=== PATIENT | male | born 1980 | race Caucasian/White ===

== ENCOUNTER 2023-01-22 12:49 | Outpatient (REF) | payer OTHER, SELFPAY ==
--- NOTE | ~2023-01-22 | US_ITS ---
EXAMINATION: US SCROTUM CLINICAL INFORMATION: Enlarged testicle.. COMPARISON: None available. TECHNIQUE: A sonogram of the scrotum was performed assessing balbuena-scale appearance and color Doppler flow. Spectral Doppler analysis of the arterial and venous flow were performed in the testes bilaterally. FINDINGS: RIGHT: Right testicle measures 6.4 x 2.9 x 4.0 cm, volume 38.5 mL. There is a central area of large heterogeneous mass and multiple small areas of satellite nodules with increased vascularity. The largest mass measures 3.5 x 2.8 x 3.3 cm and 1.6 x 1.3 x 1.5 cm. There is nonspecific echogenic calcification in the right testis. Spectral Doppler analysis of the arterial and venous flow is normal in the right testis except for increased vascularity in the several right testicular mass and smaller satellite nodules.. Right epididymal head is normal in size. No right hydrocele or varicocele is seen. Right epididymal Doppler flow is normal. LEFT: Left testicle measures 5.6 x 3.1 x 3.5 cm, volume 32.1 mL. No focal testicular parenchymal lesions are visualized. Spectral Doppler analysis of the arterial and venous flow is normal in the left testis. Left epididymal head is normal in size. No left hydrocele or varicocele is seen. Left epididymal Doppler flow is normal. US/US scrotum IMPRESSION: Abnormal ultrasound scrotum. 2 large masses and multiple small satellite nodules in the right testes with increased vascularity. These are suspicious for primary (lymphoma or leukemic deposits) or metastasis. The left testes and bilateral epididymides are normal
== END 2023-01-22 12:50 | disposition home or self-care (01) ==
LOC: HO.HMGCX 12:49
PROVIDERS: PCP Internal Medicine; Visit Provider Internal Medicine
DX: N50.89 Other specified disorders of the male genital organs (principal)
CPT/HCPCS: 76870

== ENCOUNTER 2023-01-29 12:14 | Outpatient (REF) | payer OTHER, SELFPAY ==
[2023-01-29 13:31] LABS: MANUAL DIFF FLAG NO
[2023-01-29 14:00] LABS: Appearance Urine Clear; Color Urine Yellow; Glucose Urine UA 100 mg/dL (Negative); Leukocyte Esterase Urine Negative (Negative); Nitrite Urine Negative (Negative); PH 5.5 (5.0-9.0); Specific Gravity - Urine >= 1.030 (1.005-1.025); Urine Blood Negative (Negative); Urine Ketones Trace mg/dL (Negative); Urine Protein Trace mg/dL (Neg-Trace)
[2023-01-29 14:00] LABS: Basophils Absolute Auto 0.1 X10*3/uL (0.0-0.2); Basophils Percent Auto 1.3 % (0-2); Eosinophils Absolute Auto 0.2 X10*3/uL (0.0-0.4); Eosinophils Percent Auto 3.4 % (0-4); Hematocrit 43.4 % (42.0-52.0); Hemoglobin 14.6 g/dl (14.0-18.0); Imm Gran Abs Auto 0.01 X10*3/uL (0.00-0.03); Imm Gran Pct Auto 0.2 % (0.0-0.4); Lymphocytes Absolute Auto 1.6 X10*3/uL (1.2-4.9); Mean Corpuscular HGB Conc 33.6 g/dl (31.0-36.0); Mean Corpuscular Hemoglobin 28.7 pg (27.0-33.0); Mean Corpuscular Volume 85.4 fL (80.0-98.0); Mean Platelet Volume 10.7 fL (9.4-12.4); Monocytes Absolute Auto 0.4 X10*3/uL (0.1-1.2); Monocytes Percent Auto 8.3 % (2-11); Neutrophils Percent Auto 55.8 % (45-73); Platelet Count 208 X10*3/uL (160-400); Red Blood Count 5.08 X10*6/uL (4.60-5.80); Red Cell Distribution Width 11.9 % (11.0-16.0); White Blood Count 5.3 X10*3/uL (4.8-10.8)
[2023-01-29 14:02] LABS: Bacteria Urine None Seen (None Seen); Hyaline Casts Urine 0-2 /LPF (0-2); Squamous Epithelial Cell Urine 0-2 /HPF (0-2); WBC Urine 0-5 /HPF (0-5)
[2023-01-29 14:18] LABS: Estimated Average Glucose 203 mg/dL; Hemoglobin A1c % 8.7 %
[2023-01-29 14:45] LABS: Microalbum/Creatinine Ratio Ur 5.7 ug/mg cr
[2023-01-29 14:53] LABS: Alanine Aminotransferase 52 U/L (0-40); Albumin Level 4.3 g/dL (3.5-5.0); Alkaline Phosphatase 75 U/L (39-117); Anion Gap 13 (12-20); Aspartate Amino Transferase 26 U/L (5-37); Bilirubin Total 0.5 mg/dL (0.0-1.0); Blood Urea Nitrogen 18 mg/dL (9-16); Calcium 9.8 mg/dL (8.4-10.2); Carbon Dioxide 27 mmol/L (22-29); Chloride 105 mmol/L (96-108); Cholesterol 194 mg/dL; Estimated Glomerular Filt Rate > 60; Glucose Fasting 228 mg/dL (60-99); HDL Cholesterol 44 mg/dL; LDL Cholesterol Calculated 130 mg/dl; Potassium 3.8 mmol/L (3.3-5.1); Sodium 141 mmol/L (135-145); Total Protein 7.7 g/dL (6.5-8.0); Triglycerides 101 mg/dL
[2023-01-29 15:09] LABS: TSH reflex Free T4 1.18 uIU/mL (0.32-4.0)
== END 2023-01-29 12:15 | disposition home or self-care (01) ==
LOC: HO.HMGCLDS 12:14
PROVIDERS: PCP Internal Medicine; Visit Provider Internal Medicine
DX: Z00.00 Encounter for general adult medical examination without abnormal findings (principal); E11.9 Type 2 diabetes mellitus without complications
CPT/HCPCS: 36415; 80053; 80061; 81001; 82043; 83036; 84443; 85025

== ENCOUNTER 2023-01-30 15:25 | Outpatient (AMB) | payer OTHER, SELFPAY ==
--- NOTE | 2023-01-30 13:02 | A.OFFVIS_ITS ---
Intake Intake Visit Reasons: disorders of the male genital organs Intake Note: NEW Patient presents today to established treatment for Disorder of the Male Genital Organ Meds- None Allergies to Antibiotic- None Blood Thinner- None Instrument Person Required: No Accompanied by: Self / Same As Patient Allergies No Known Allergies [No Known Allergies*] Allergy (Unverified 01/30/23 15:28) Medication List - Last Reconciled 01/30/23 by Caitlin Ramirez MD blood sugar diagnostic (OneTouch Ultra Test strips) tid [facility] blood-glucose meter (OneTouch Ultra2 Meter) As directed Farxiga (dapagliflozin propanediol) 10 mg PO DAILY NS meloxicam 15 mg PO DAILY HPI HPI Comments History of Present Illness Details Lalo is a 42-year-old male who presents to the clinic today for evaluation of testicular mass. 01/30/23-- He was last seen by his PCP, on 01/17/23 with complaints of swelling in the right testicle. He was recommended to obtain a testicular ultrasound at that time which he had on 01/22/23. He stated that he had noticed some discomfort with urination a few days ago with referred pressure on his right lower abdomen that has resolved. it was associated with him taking a drive with his and a bathroom was not readily available. He has a family history of skin cancer and diabetes. He denies any history of kidney stones. He denies noticing any signs of infection. He was recently started on Farxiga due to elevated blood glucose. Results reviewed-- 01/22/23- Scrotal ultrasound was reviewed-- It notes 2 large masses, multiple small satellite nodules in the right right testicle with increasing vascularity suspicious for a carcinoma. Evaluation today--UA?Blood: negative, leukocytes: negative. On exam, there is a mass in the lower pole of the right testicle. The left testicle is normal. Otherwise, abdomen soft, nontender. No CVA tenderness. Plan: Ordered a CAT scan of the abdomen and pelvis, chest x-ray, and blood work. Follow up with Dr. Phillip pending results. [facility] Medical History Annual physical exam Obesity Type 2 diabetes mellitus Surgical History No pertinent past surgical history Family History Father Stroke Diabetes Mother Diabetes Maternal Grandmother No problems noted. 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 Alcohol intake: current Alcohol intake frequency: holidays/special occasions only Patient Tobacco Use Status: Never used Tobacco Current occupational status: employed Cognitive needs: No Hearing needs: No Vision needs: No Review of Systems Const All systems reviewed & are unremarkable except as noted in HPI and below Reports no additional complaints Eyes Reports no additional complaints ENT Reports no additional complaints Card Denies dyspnea Resp Denies cough and Denies dyspnea GI Reports no additional complaints Musc Reports no additional complaints Skin/Breast Denies rash and Denies unusual bruising Neuro Reports no additional complaints Psych Reports no additional complaints Endo Reports no additional complaints Luis/Lymph Reports no additional complaints Aller/Immun Reports no additional complaints Physical Exam Const General: healthy appearing, no acute distress and well developed Orientation/consciousness: patient oriented x3 HEENT Head: Yes normocephalic and Yes atraumatic Eyes Conjunctivae: conjunctivae normal Neck Neck: Yes normal visual inspection Chest Chest palpation & inspection: normal inspection of the chest Resp Effort & Inspection: normal respiratory effort Cardio Rate: regular rate GI Inspection: Yes normal to inspection Palpation (GI): Soft to palpation Other: Right testicular mass lower pole. Penis: normal penis and uncircumcised Skin General skin exam: no rashes or lesions noted Neuro General: patient oriented x3 Extrem General: No pedal edema Psych Appearance: grossly normal Affect: normal affect Results AMB Urinalysis, Automated UA Leukoctes 0 Deangelo/uL Last Edit by SHARON Poole on 01/30/23 15:58 UA Nitrite Negative Last Edit by SHARON Poole on 01/30/23 15:58 UA Urobilinogen 0.2 mg/dL Last Edit by Desirae Shea Kathy on 01/30/23 15:5 8 UA Protein 15 mg/dL Last Edit by Desirae Shea Kathy on 01/30/23 15:58 UA pH 6.0 Last Edit by Desirae Shea [facility] on 01/30/23 15:58 UA Blood 0 Valdez/uL Last Edit by Desirae Shea A on 01/30/23 15:58 UA Specific [place] 1.30 Last Edit by Desirae Shea Kathy on 01/30/23 15:5 8 UA Ketone Last Edit by Desirae Shea Kathy on 01/30/23 15:58 UA Bilirubin 0 mg/dL Last Edit by Desirae Shea Kathy on 01/30/23 15:58 UA Glucose 0 mg/dL Last Edit by Desirae Shea Kathy on 01/30/23 15:58 Results Reviewed Results Reviewed: Laboratory Last Values Urine pH (Auto) 6.0 01/30/23 15:56 Specific Nelson (Auto) 1.30 01/30/23 15:56 Urine Protein (Auto) 15 mg/dL 01/30/23 15:56 Glucose (UA)(Auto) 0 mg/dL 01/30/23 15:56 Urine Blood (Auto) 0 Valdez/uL 01/30/23 15:56 Urine Nitrite (Auto) Negative 01/30/23 15:56 Urine Bilirubin (Auto) 0 mg/dL 01/30/23 15:56 Urine Urobilinogen (Auto) 0.2 mg/dL 01/30/23 15:56 Leukocyte Esterase (Auto) 0 Deangelo/uL 01/30/23 15:56 Date: 01/22/23 FINDINGS: RIGHT: Right testicle measures 6.4 x 2.9 x 4.0 cm, volume 38.5 mL. There is a central area of large heterogeneous mass and multiple small areas of satellite nodules with increased vascularity. The largest mass measures 3.5 x 2.8 x 3.3 cm and 1.6 x 1.3 x 1.5 cm. There is nonspecific echogenic calcification in the right testis.? Spectral Doppler analysis of the arterial and venous flow is normal in the right testis except for increased vascularity in the several right testicular mass and smaller satellite nodules.. Right epididymal head is normal in size. No right hydrocele or varicocele is seen. Right epididymal Doppler flow is normal. LEFT: Left testicle measures 5.6 x 3.1 x 3.5 cm, volume 32.1 mL. No focal testicular parenchymal lesions are visualized. Spectral Doppler analysis of the arterial and venous flow is normal in the left testis. Left epididymal head is normal in size. No left hydrocele or varicocele is seen. Left epididymal Doppler flow is normal. IMPRESSION: Abnormal ultrasound scrotum. ? 2 large masses and multiple small satellite nodules in the right testes with increased vascularity. These are suspicious for primary (lymphoma or leukemic deposits) or metastasis. ? The left testes and bilateral epididymides are normal Assessment & Plan Assessment & Plan (1) Mass of right testicle: Code(s): N50.89 - Other specified disorders of the male genital organs Plan Ordered a CAT scan of the abdomen and pelvis, chest x-ray, and blood work. Follow up with Dr. Phillip pending results. Orders: Orders Alpha Fetoprotein 01/30/23 N50.89 - Other specified disorders of the male genital organs HCG Tumor Marker 01/30/23 N50.89 - Other specified disorders of the male genital organs CT abdomen pelvis wo/w IV con 01/30/23 N50.89 - Other specified disorders of the male genital organs XR chest 2V 01/30/23 N50.89 - Other specified disorders of the male genital organs AMB Urinalysis Automated 01/30/23 Z13.9 - Encounter for screening, unspecified Patient Instructions: The patient had an opportunity to ask questions regarding treatment plan. All questions were answered. Imaging, Laboratory studies and physical exam results were discussed and reviewed in detail. No major barriers to understanding were identified. The patient expressed understanding and agreement with the above treatment plan. The patient is aware they should contact our office by phone for worsening of their current condition or the appearance of new symptoms. Compliance is e ncouraged with any medications and followup testing that is ordered. It is a privilege to be allowed the opportunity to participate in the urologic care of your patient. If you have any questions or concerns regarding treatment for the above conditions please do not hesitate to contact me. The office telephone contact is [phone]. This note is constructed in part using voice recognition software. While every effort has been made to ensure accuracy fine chemicals operator errors may have been included. Yours sincerely, Caitlin Ramirez MD Coding Level of Care Code New Pt Level 4 (57609) Diagnoses Mass of right testicle N50.89
== END 2023-01-30 16:07 | disposition home or self-care (01) ==
PROVIDERS: PCP Internal Medicine; Visit Provider Urology
DX: N50.89 Other specified disorders of the male genital organs (principal)
CPT/HCPCS: 99204

== ENCOUNTER → 2023-01-30 15:25 | Outpatient (BNVA) | payer OTHER, SELFPAY | PROVIDERS: PCP Internal Medicine; Visit Provider Urology ==

== ENCOUNTER 2023-02-16 10:19 | Outpatient (REF) | payer OTHER, SELFPAY ==
[2023-02-16 11:33] LABS: Blood Urea Nitrogen 13 mg/dL (9-16); Estimated Glomerular Filt Rate > 60
== END 2023-02-16 10:20 | disposition home or self-care (01) ==
LOC: HO.HMGCLDS 10:19
PROVIDERS: PCP Internal Medicine; Visit Provider Urology
DX: N50.89 Other specified disorders of the male genital organs (principal)
CPT/HCPCS: 36415; 82565; 84520

== ENCOUNTER 2023-03-14 09:06 | Outpatient (REF) | payer OTHER, SELFPAY ==
--- NOTE | ~2023-03-14 | CT_ITS ---
EXAMINATION: CT ABDOMEN AND PELVIS WITH CONTRAST CLINICAL INFORMATION: Right testicular mass. COMPARISON: None available. TECHNIQUE: Multidetector volumetric images were obtained from the superior aspect of the liver through the pubic symphysis following administration 85 mL of Omnipaque 350 intravenous contrast. Sagittal and coronal reformatted images were obtained on the technologist's workstation. Oral contrast: No This CT examination was performed using dose optimization techniques as appropriate, variously including the following: *Automated exposure control *Adjustment of mA and/or kV according to patient size (this includes techniques or standardized protocols for targeted exams where dose is matched to indication/reason for exam; i.e. extremities or head) *Use of iterative reconstruction technique DLP: A 49 mGy-cm FINDINGS: LUNG BASES: The visualized lung bases are unremarkable. LIVER, GALLBLADDER, AND BILIARY TREE: The liver is normal in size, shape and generally diminished in attenuation. No focal hepatic lesion or biliary ductal dilatation is present. The gallbladder is unremarkable with no evidence of radiopaque gallstones, gallbladder wall thickening, or obvious pericholecystic inflammatory changes. PANCREAS: Unremarkable. SPLEEN: Unremarkable. ADRENAL GLANDS: Unremarkable. KIDNEYS AND URETERS: The kidneys are normal in size, shape, and attenuation. No hydronephrosis, hydroureter, or calculi seen. No perinephric stranding. BLADDER: Unremarkable. GASTROINTESTINAL TRACT: The small and large bowel are unremarkable. The vermiform appendix is not identified with certainty; however, there is no finding to suggest appendicitis. ABDOMINAL WALL: No significant hernia is appreciated. LYMPH NODES: Normal. VASCULAR: Unremarkable. PELVIC VISCERA: The prostate and seminal vesicles are unremarkable. OSSEOUS STRUCTURES: There is multi-level mild lower thoracic and lumbar degenerative disc disease and spondylosis. No acute or aggressive osseous abnormality is seen. CT/CT abdomen pelvis w IV con IMPRESSION: There is hepatic steatosis. The examination is otherwise unremarkable. Fleischner guidelines were followed.
--- NOTE | ~2023-03-14 | XR_ITS ---
EXAMINATION: XR CHEST CLINICAL INFORMATION: Difficulty breathing COMPARISON: None available. TECHNIQUE: 2 views of the chest were obtained. FINDINGS: No significant abnormality is noted involving the heart, lungs, mediastinum, bony thorax or soft tissues. XR/XR chest 2V IMPRESSION: Unremarkable examination.
[2023-03-14] MEDS: iohexoL 350 MG/ML 100 ML INFUS..BTL 85 ML IV (09:41)
== END 2023-03-14 09:07 | disposition home or self-care (01) ==
LOC: HO.CT 09:06
PROVIDERS: Visit Provider Urology
DX: N50.89 Other specified disorders of the male genital organs (principal)
CPT/HCPCS: 71046; 74177; Q9967

== ENCOUNTER 2023-03-28 10:36 | Outpatient (AMB) | payer OTHER, SELFPAY ==
--- NOTE | 2023-03-28 10:42 | MHC.OFFVIS ---
Intake Intake Visit Reasons: 4W CT/LABS(No labs) Intake Note: Patient is present for Follow Up CT Urology Med: None Antibiotic Allergy: None Blood Thinner: None Pharmacy: [facility] Allergies No Known Allergies [No Known Allergies*] Allergy (Verified 03/28/23 10:43) HPI HPI Comments History of Present Illness Details Lalo is a pleasant male. He is a patient of Dr. Diamond. 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 The largest mass measures 3.5 x 2.8 x 3.3 cm and 1.6 x 1.[address] abdomen reported as normal Testicular markers were ordered however do not appear to have been completed Discussed results Recommend right radical orchiectomy Repeat tumor markers today [facility] Medical History Obesity Annual physical exam Type 2 diabetes mellitus Surgical History No pertinent past surgical history Family History Father Stroke Diabetes Mother Diabetes Maternal Grandmother No problems noted. 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 Alcohol intake: current Alcohol intake frequency: holidays/special occasions only Patient Tobacco Use Status: Never used Tobacco Current occupational status: employed Cognitive needs: No Hearing needs: No Vision needs: No Review of Systems Const Denies chills and Denies fever(s) Card Reports no additional complaints and Denies syncope Resp Denies cough GI Denies abdominal pain and Denies heartburn Reports as per HPI and Denies change in libido Neuro Denies syncope Psych Denies change in libido Endo Denies change in libido Physical Exam Const General: cooperative, healthy appearing, comfortable and no acute distress Orientation/consciousness: patient oriented x3 HEENT Face and sinus: Yes normal facial exam Mouth: moist mucous membranes Neck Neck: Yes normal visual inspection, Yes full ROM and Yes trachea midline Chest Chest palpation & inspection: normal inspection of the chest Resp Effort & Inspection: normal respiratory effort, able to speak in complete sentences and no respiratory distress GI Inspection: Yes normal to inspection Back/Spine/Pelvis Cervical Spine: normal cervical lordosis Thoracic/Lumbar Spine: thoracic and lumbar spine normal to inspection Skin General skin exam: no rashes or lesions noted Neuro General: patient oriented x3, gait normal, tone normal and moves all extremities Extrem General: Yes normal to inspection and Yes capillary refill normal Results AMB Urinalysis, Automated UA Leukoctes 0 Deangelo/uL Last Edit by Glo Bernstein [facility] on 03/28/23 10:51 UA Nitrite Negative Last Edit by Glo Bernstein, [facility] on 03/28/23 10:51 UA Urobilinogen 0.2 mg/dL Last Edit by Glo Bernstein, [facility] on 03/28/23 10:51 UA Protein 0 mg/dL Last Edit by Glo Bernstein, [facility] on 03/28/23 10:51 UA pH 5.0 Last Edit by Glo Bernstein, [facility] on 03/28/23 10:51 UA Blood 0 Valdez/uL Last Edit by Glo Bernstein, [facility] on 03/28/23 10:51 UA Specific [place] 1.025 Last Edit by Glo Bernstein, [facility] on 03/28/23 10:51 UA Ketone Negative Last Edit by Glo Bernstein, [facility] on 03/28/23 10:51 UA Bilirubin 0 mg/dL Last Edit by Glo Bernstein [facility] on 03/28/23 10:51 UA Glucose 0 mg/dL Last Edit by Glo Bernstein, [facility] on 03/28/23 10:51 Assessment & Plan Assessment & Plan (1) Mass of right testicle: Code(s): N50.89 - Other specified disorders of the male genital organs Plan Risks, benefits and alternatives to therapy were discussed. These include but are not limited to infection, bleeding, damage to local organs and tissues, need for further interventions. Anesthetic risks regarding cardiac arrhythmia, blood clots, and potential mortality were discussed. The patient understands the typical recovery time and the outpatient nature of the procedure. After consideration of these risks the patient gives full informed consent and they wish to move ahead with the procedure. Right radical orchiectomy Orders: Orders AMB Urinalysis Automated Today Z13.9 - Encounter for screening, unspecified HCG Tumor Marker Today C62.90 - Malignant neoplasm of unspecified testis, unspecified whether descended or undescended, N50.89 - Other specified disorders of the male genital organs Alpha Fetoprotein Today N50.89 - Other specified disorders of the male genital organs Lactate Dehydrogenase Today C62.90 - Malignant neoplasm of unspecified testis, unspecified whether descended or undescended, N50.89 - Other specified disorders of the male genital organs Patient Instructions: Imaging studies, laboratory and physical exam results were discussed and reviewed in detail. No major barriers to patient understanding were identified. An opportunity to ask questions regarding the treatment plan was provided. All questions were answered. The patient expressed understanding and agreement with the above treatment plan. The patient is aware they should contact our office by phone for worsening of their current condition or the appearance of new urologic symptoms. Compliance is encouraged with any medications and followup testing that is ordered. It is a privilege to participate in the urologic care of your patient. If you have any questions or concerns regarding treatment for the above conditions, or other urologic issues, please do not hesitate to contact me. The office telephone contact is [phone]. This note is constructed using voice recognition software. While every effort has been made to ensure accuracy charge accounts audit clerk errors may have been included. Yours sincerely, Dr Claude Phillip MD, [facility] - Urology Providers of Expert, Compassionate Care for the Genitourinary System Coding Level of Care Code Est Pt Level 4 (94151) Diagnoses Mass of right testicle N50.89
== END 2023-03-28 11:42 | disposition home or self-care (01) ==
PROVIDERS: PCP Internal Medicine; Visit Provider Urology
DX: N50.89 Other specified disorders of the male genital organs (principal)
CPT/HCPCS: 99214

== ENCOUNTER → 2023-03-28 10:36 | Outpatient (BNVA) | payer OTHER, SELFPAY | PROVIDERS: PCP Internal Medicine; Visit Provider Urology ==

== ENCOUNTER 2023-03-28 11:04 | Outpatient (REF) | payer OTHER, SELFPAY ==
[2023-03-28 13:50] LABS: Lactate Dehydrogenase 310 U/L (118-273)
[2023-03-30 00:33] LABS: HCG Tumor Marker <5 mIU/mL (<5)
[2023-04-01 13:04] LABS: Alpha Fetoprotein 2.7 ng/mL (<6.1)
== END 2023-03-28 11:05 | disposition home or self-care (01) ==
LOC: HO.10HDL 11:04
PROVIDERS: Visit Provider Urology
DX: N50.89 Other specified disorders of the male genital organs (principal); C62.90 Malignant neoplasm of unspecified testis, unspecified whether descended or undescended
CPT/HCPCS: 36415; 81003; 82105; 83615; 84702

== ENCOUNTER 2023-04-01 13:46 | Day surgery (SDC) | payer OTHER, SELFPAY ==
[2023-04-01] VITALS (7 sets, daily range): BP systolic 135–148; BP diastolic 69–89; PULSE 67–79; RESP 16–18; TEMP 36.8–37.2; O2SAT 97–100; BMI 31.4
--- NOTE | 2023-04-01 14:23 | P.CONAN_ITS ---
HPI - Anesthesia Eval Consult details Narrative: for right radical orchiectomy PMFSH Active Problems Active Problems: All Active Problems (Updated 01/25/23 @ 15:14 by Abiola Diamond MD) Mass of right testicle (Acute) Shoulder pain, left (Acute) Enlarged testicle (Acute) Type 2 diabetes mellitus (Acute) Obesity (Acute) Annual physical exam (Acute) Past Medical History Medical History Obesity Annual physical exam Type 2 diabetes mellitus Family History Family History Father Stroke Diabetes Mother Diabetes Maternal Grandmother No problems noted. 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 Alcohol intake: current Alcohol intake frequency: holidays/special occasions only Patient Tobacco Use Status: Never used Tobacco Use of substances other than those prescribed or required for medical reasons: No Are you DNR?: No Advance Directives: No Advance Directives Information Provided: Yes Current occupational status: employed Cognitive needs: No Hearing needs: No Vision needs: No Meds Allergies Allergy/AdvReac Type Severity Reaction Status Date / Time No Known Allergies Allergy Verified 03/28/23 10:43 [No Known Allergies*] Active Medications: Current Medications Cefazolin Sodium/Dextrose (Ancef) 2 gm in 50 mls @ 100 mls/hr IV PREOP ONE Stop: 04/01/23 14:33 Home Medications Medication Instructions Recorded Confirmed Last Taken Type fexofenadine 180 mg tablet 180 mg PO DAILY 04/01/23 04/01/23 Unknown History Exam Exam Date and Time: April 01, 2023 1423 Height,Weight and Vital Signs: Height 6 ft 3 in Weight 113.852 kg Last Vital Signs Temp 98.5 F 04/01/23 14:17 Pulse 78 04/01/23 14:17 Resp 18 04/01/23 14:17 BP 144/89 H 04/01/23 14:17 Pulse Ox 99 04/01/23 14:17 O2 Del Method Room Air 04/01/23 14:17 Airway Mallampati Class: I TM Dist: >3cm Neck ROM: Full Loose/Missing/Broken Teeth: No Heart: ok Lungs: ok Assessment and Plan Assessment Anesthesia Assessment: Anesthesia Plan Discussed and Chart Reviewed Final Anesthetic Review Family History of Problems with Anesthesia: No History of Problems with Anesthesia: No NPO: Yes ASA Class: II Final Preanesthetic Review: No Changes in Pt Med Stat, Meds/Allgs Chart Reviewed, Consent Obtained/Reviewed and Anes Risks/Benef Reviewed Patient Risk: Low Procedure Risk: Low Anesthetic Plan Anesthetic Plan: GA and Agree w/ Assess. and Plan Disposition: Standard PACU
[2023-04-01] MEDS: Lactated Ringers 1,000 ML 50 ML IVCONT (14:45)
[2023-04-01 14:56] LABS: Glucose, Whole Blood 118 mg/dL (60-115)
--- NOTE | 2023-04-01 15:36 | MHC.SHP ---
Pre-Procedural Eval Section A Date of Service: 04/01/23 The patient is an INPATIENT: No Changes since office visit: No Cold of Flu in the past 2 weeks, No New Medical Problems, No Changes in Medication and No Patient answered all questions The History & Physical has been completed within 30 days and I have reviewed it.: Yes Section B Chief Complaint: Other specified disorders of the male genital orga Allergies: Allergies Allergy/AdvReac Type Severity Reaction Status Date / Time No Known Allergies Allergy Verified 03/28/23 10:43 [No Known Allergies*] Plan Diagnosis/Plan: Unchanged ( right radical orchiectomy) I have reviewed the history and physical and performed a pertinent physical examination on my patient. No changes have occurred unless specified. Time Spent With Patient Time: Total time managing care of this patient today ____ minutes.
--- NOTE | 2023-04-01 17:05 | W.PM.OPN ---
Operative Note Operative Note Date of Service: 04/01/23 Narrative: PreOperative Diagnosis: Right testicle mass Post Operative Diagnosis: right testicle mass Procedure: right radical orchiectomy Surgeon: Dr Claude Phillip Anesthesia: general Indications for procedure: right testicular mass on imaging. Recommend radical orchiectomy. High percentage chance of testicular cancer Procedure: After informed consent was verified the patient was brought to the operating room and placed in a supine position. Anesthesia was administered per protocol. The patient was prepped and draped in a sterile fashion. Safety pause time-out was performed. Antibiotics being given. Palpation was performed through the right inguinal canal. The canal was palpated and an incision marked approximately 10 cm in length running 2 to 3 cm caudad to the inguinal canal. Local anesthetic was infiltrated. The incision was made with a 10 blade through the skin into the subcutaneous tissue. Subcutaneous tissue was dissected until the cord was identified and the surrounding fascia. A Alciia clamp was placed from the lateral superior pubis under the cord structures and the cord was isolated using a quarter-inch [place] drain. This was double wrapped to control vascular drainage from the testicular manipulation. The testicle itself was then delivered from the scrotum through the incision. The gubernacular attachments were divided using a LigaSure device to minimize postoperative bleeding. Once the testicle had been freed in fully elevated the empty scrotal sac was irrigated. The cord was traced in a proximal fashion and the overlying fascia was divided for approximately 1 in over the inguinal canal. Cord was fully elevated and the vas deferens was dissected free from the vascular pedicle. Clamps were placed on the vas deferens and separately through the vascular pedicle. The cord structures were then divided using the LigaSure device. The vascular pedicle was marked using a stick tie 3.0 Prolene. A long tail was left as the cord structures retracted into the retroperitoneal space. The vas deferens was tied with a 3-0 Vicryl. The overlying fascia was then reapproximated using a running 3-0 Prolene suture. The wound was then re-irrigated. Kamron's fascia was reapproximated with interrupted 3-0 Vicryl. Skin edge was reapproximated with 2 interrupted 3-0 Vicryl sutures. Skin was closed using a running 4-0 Monocryl suture. At completion of skin closure glue was used. A dressing was placed. He tolerated procedure well. Was extubated in the operating room and transferred in a stable condition to the recovery area. Pathology: Right testicle Drains: none
[2023-04-01] MEDS: oxyCODONE HCl Immed Release 5 MG TABLET 10 MG PO (17:11)
[2023-04-01] MEDS: Acetaminophen 325 MG TABLET 975 MG PO (17:12)
== END 2023-04-01 17:48 | disposition home or self-care (01) ==
PROVIDERS: PCP Internal Medicine; Visit Provider Urology
PROC: (CPT 54530; principal; 2023-04-01 15:40)
DX: C62.91 Malignant neoplasm of right testis, unspecified whether descended or undescended (principal); N50.89 Other specified disorders of the male genital organs; E11.9 Type 2 diabetes mellitus without complications; Z79.84 Long term (current) use of oral hypoglycemic drugs; Z79.899 Other long term (current) drug therapy
CPT/HCPCS: 54530; 82947; 88309; 88313; 88341; 88342; J0690; J1885; J2250; J2405; J2795; J3010

== ENCOUNTER → 2023-04-01 13:46 | Outpatient (BNV) | payer OTHER, SELFPAY | PROVIDERS: PCP Internal Medicine; Visit Provider Urology | DX: C62.11 Malignant neoplasm of descended right testis (principal) | CPT/HCPCS: 54530 ==

== ENCOUNTER 2023-04-09 13:38 | Outpatient (AMB) | payer OTHER, SELFPAY ==
--- NOTE | 2023-04-09 13:39 | MHC.OFFVIS ---
Intake Intake Visit Reasons: post op (radical orchiectomy) Intake Note: Patient is Present for Follow Up Post Op Urology Medication: None Antibiotic Allergies: None Blood Thinners: None Pharmacy: [facility] Allergies No Known Allergies [No Known Allergies*] Allergy (Verified 03/28/23 10:43) Medication List - Last Reconciled 04/09/23 by Claude Phillip MD blood sugar diagnostic (OneTouch Ultra Test strips) tid qAC blood-glucose meter (OneTouch Ultra2 Meter) As directed fexofenadine 180 mg PO DAILY lancets (OneTouch Delica Plus Lancet) Test blood sugar once a day metformin 850 mg PO BID tramadol 50 mg PO Q6H PRN HPI HPI Comments History of Present Illness Details Lalo is a pleasant male. He is a patient of Dr. Diamond. 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 He is seen for the following urologic conditions - right testicular seminoma Accompanied by Discussion of pathology results Recommend single cycle [place]-based chemotherapy Referral to medical oncology Two month follow-up Cleared for normal activity Right testicular seminoma Noted on self exam middle of January 2023 Ultrasound report states suspicious for carcinoma - acentral area of large heterogeneous mass and multiple small areas of satellite nodules with increased vascularity. The largest mass measures 3.5 x 2.8 x 3.3 cm and 1.6 x 1[address] abdomen reported as normal Testicular markers normal Pathology - T2 seminoma [facility] Medical History (Updated 04/09/23 @ 14:19 by Claude Phillip MD) Mass of right testicle Enlarged testicle Obesity Annual physical exam Type 2 diabetes mellitus Surgical History No pertinent past surgical history Family History Father Stroke Diabetes Mother Diabetes Maternal Grandmother No problems noted. 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 Housing: House Alcohol intake: current Alcohol intake frequency: holidays/special occasions only Patient Tobacco Use Status: Never used Tobacco Current occupational status: employed Cognitive needs: No Hearing needs: No Vision needs: No Review of Systems Const Denies chills and Denies fever(s) Card Reports no additional complaints and Denies syncope Resp Denies cough GI Denies abdominal pain and Denies heartburn Reports as per HPI and Denies change in libido Neuro Denies syncope Psych Denies change in libido Endo Denies change in libido Physical Exam Const General: cooperative, healthy appearing, comfortable and no acute distress Orientation/consciousness: patient oriented x3 HEENT Face and sinus: Yes normal facial exam Mouth: moist mucous membranes Neck Neck: Yes normal visual inspection, Yes full ROM and Yes trachea midline Chest Chest palpation & inspection: normal inspection of the chest Resp Effort & Inspection: normal respiratory effort, able to speak in complete sentences and no respiratory distress GI Inspection: Yes normal to inspection Back/Spine/Pelvis Cervical Spine: normal cervical lordosis Thoracic/Lumbar Spine: thoracic and lumbar spine normal to inspection Skin General skin exam: no rashes or lesions noted Neuro General: patient oriented x3, gait normal, tone normal and moves all extremities Extrem General: Yes normal to inspection and Yes capillary refill normal Assessment & Plan Assessment & Plan (1) 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, LVI positive Code(s): C62.11 - Malignant neoplasm of descended right testis Plan Two month follow-up Orders: Referrals Hematology & Oncology Referral C62.11 - Malignant neoplasm of descended right testis Patient Instructions: Imaging studies, laboratory and physical exam results were discussed and reviewed in detail. No major barriers to patient understanding were identified. An opportunity to ask questions regarding the treatment plan was provided. All questions were answered. The patient expressed understanding and agreement with the above treatment plan. The patient is aware they should contact our office by phone for worsening of their current condition or the appearance of new urologic symptoms. Compliance is encouraged with any medications and followup testing that is ordered. It is a privilege to participate in the urologic care of your patient. If you have any questions or concerns regarding treatment for the above conditions, or other urologic issues, please do not hesitate to contact me. The office telephone contact is [phone]. This note is constructed using voice recognition software. While every effort has been made to ensure accuracy flatwork feeder errors may have been included. Yours sincerely, Dr Claude Phillip MD, [facility] - Urology Providers of Expert, Compassionate Care for the Genitourinary System Coding Level of Care Code Est Pt Level 4 (75263) Diagnoses Seminoma of descended right testis C62.11
== END 2023-04-09 14:20 | disposition home or self-care (01) ==
PROVIDERS: PCP Internal Medicine; Visit Provider Urology
DX: C62.11 Malignant neoplasm of descended right testis (principal)
CPT/HCPCS: 99024

== ENCOUNTER → 2023-04-09 13:38 | Outpatient (BNVA) | payer OTHER, SELFPAY | PROVIDERS: PCP Internal Medicine; Visit Provider Urology ==

== ENCOUNTER 2023-04-23 08:19 | Outpatient (AMB) | payer OTHER, SELFPAY ==
--- NOTE | 2023-04-23 08:28 | A.OFFVIS_ITS ---
Intake VS Expanded 04/23/23 08:31 04/29/23 20:49 Height 6 ft 3 in 6 ft 3 in Weight 259 lb 4.218 oz 259 lb BMI 32.4 32.4 Intake Visit Reasons: DM2, appt confirmed Allergies No Known Allergies [No Known Allergies*] Allergy (Verified 03/28/23 10:43) HPI Nutrition Presentation Details Pt presents for MNT for T2DM . The Pt was referred by Dr. Ely Diamond Pt reports having tried several diets in the past: keto, anabolic diet. Pt reports feeling more comfortable in making dietary modifications for blood glucose improvement since acquiring a glucose sensor (freestyle warren) Pt reports taking on and off the following supplements chromium , alpha lipoic acid food frequency questionnaire Fish : 12 oz , 2-3 x/wk, fruits: 4-x wk (in smoothies ) beverages: water/juices> 66 oz/d dairy : 2+ daily (yogurt/cream/cheese) fruits: 0-3/d physical activity: -- ETOH/SMoking---- KOX-Siptfhp-Wb.Jeor Equation Height 6 ft 3 in Weight 259 lb Resting Metabolic Rate 2167.53 Calculated Activity Level Mild Activity Calories Needed to Maintain Weight 2980.35 Diagnosis Nutrition problem #1 food nutri know defi As related to (etiology) #1 diagnosis As evidenced by (sign/symptom) #1 knowledge deficit of diet Learning/Education Readiness to learn good Stages of change action Most Recent Diabetes Results: Creatinine 0.89 mg/dL (0.5-1.4) 02/16/23 Blood Urea Nitrogen 13 mg/dL (9-16) 02/16/23 [facility] Medical History (Updated 04/29/23 @ 21:20 by Candace Burton, RD, LDN) Mass of right testicle Enlarged testicle Obesity Annual physical exam Type 2 diabetes mellitus Surgical History No pertinent past surgical history Family History Father Stroke Diabetes Mother Diabetes Maternal Grandmother No problems noted. 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 Alcohol intake: current Alcohol intake frequency: holidays/special occasions only Patient Tobacco Use Status: Never used Tobacco Current occupational status: employed Cognitive needs: No Hearing needs: No Vision needs: No Assessment & Plan Assessment & Plan (1) Type 2 diabetes mellitus: Code(s): E11.9 - Type 2 diabetes mellitus without complications Plan: wt: 118 kg Est kcal needs as per MSJ: 3000 (40% carb, 30% protein/fat) Est fluid needs as per 25-30 ml/d: 2950 -3540 Est prot per day as per 1 g/kg bw: 118 Recommend fiber intake : 8-10 g per day and gradually increase to 25-28 g per day for women and 35-38 g for men or as tolerated Recommend sodium intake per day : less than 2000 mg Educated patient on: ( R = reviewed V = verbalizes understanding N/R = needs review N/A = not applicable * Food sources of carbohydrate, adequate serving sizes and its role in various health conditions: R * Differences between complex carbohydrates a simple carbohydrates, role of fiber in diet: R * Differences between types of fats and role in diet (mono on saturated fat fatty acids, saturated fatty acids, trans fats): R ,basic low fat * Food sources of sodium in salt and healthy modifications for heart health in kidney health: NR * Healthy plate method concept: R V * Physical activity: Benefits a precaution: R V * Hypoglycemia protocol (rule of 15): R * Dietary prevention of Hyperglycemia: R V Patient Instructions: Practice mindful eating Work at balancing your meals following healthy plate method. Reduce total carb at a meal to 100 g Coding Level of Care Code Nutr Indiv Intake (92806) Diagnoses Type 2 diabetes mellitus E11.9 Time Spent (min) 30
[2023-04-23 08:31] VITALS: BMI 32.4
[2023-04-29 20:49] VITALS: BMI 32.4
== END 2023-04-23 09:16 | disposition home or self-care (01) ==
PROVIDERS: PCP Internal Medicine; Visit Provider Dietitian, Registered
DX: E11.9 Type 2 diabetes mellitus without complications (principal)

== ENCOUNTER → 2023-04-23 08:19 | Outpatient (BNVA) | payer OTHER, SELFPAY | PROVIDERS: PCP Internal Medicine; Visit Provider Dietitian, Registered | DX: E11.9 Type 2 diabetes mellitus without complications (principal); Z71.3 Dietary counseling and surveillance | CPT/HCPCS: 97802 ==

== ENCOUNTER 2023-04-30 | Outpatient (REF) | payer OTHER, SELFPAY ==
--- NOTE | ~2023-04-30 | CT_ITS ---
EXAMINATION: CT CHEST WITH CONTRAST CLINICAL INFORMATION: Seminoma metastases. Rule out metastases. COMPARISON: None available. TECHNIQUE: Multidetector volumetric CT imaging of the chest was obtained after the administration of 50 mL of Omnipaque 350 intravenous contrast without immediate adverse reactions. Axial MIP volume rendering provided. Sagittal and coronal reformatted images were obtained. This CT examination was performed using dose optimization techniques as appropriate, variously including the following: *Automated exposure control *Adjustment of mA and/or kV according to patient size (this includes techniques or standardized protocols for targeted exams where dose is matched to indication/reason for exam; i.e. extremities or head) *Use of iterative reconstruction technique DLP: 224 mGy-cm FINDINGS: MANAGER UNION: Unremarkable LUNGS: The lungs are well-expanded and clear. No pulmonary nodules, masses or consolidation seen. No groundglass density. MEDIASTINUM: Thyroid lobes are symmetrical and normal. The central trachea and bronchi are widely patent. No abnormal size mediastinal or hilar lymph nodes seen. The heart size and great vessels are normal caliber. No pericardial effusion seen. PLEURA: There is no pleural effusion. No pleural mass or thickening. AXILLA: No lymphadenopathy. UPPER ABDOMEN: The liver is diffusely attenuated but normal size and contour. Visualized spleen is unremarkable. Bilateral adrenal glands, pancreas and gallbladder is unremarkable. OSSEOUS STRUCTURES: No aggressive lytic or sclerotic process seen. CT/CT chest w IV con IMPRESSION: Unremarkable CT chest exam. Fleischner guidelines were followed.
[2023-04-30] MEDS: iohexoL 350 MG/ML 100 ML INFUS..BTL IV (11:37)
== END 2023-04-30 00:01 | disposition home or self-care (01) ==
LOC: HO.CT
PROVIDERS: Visit Provider Internal Medicine Medical Oncology
DX: C62.11 Malignant neoplasm of descended right testis (principal)
CPT/HCPCS: 71260; Q9967

== ENCOUNTER → 2023-05-10 13:40 | Outpatient (BNV) | payer OTHER, SELFPAY | PROVIDERS: PCP Internal Medicine; Visit Provider Internal Medicine Medical Oncology | DX: C62.11 Malignant neoplasm of descended right testis (principal) | CPT/HCPCS: 99204; 99213; 99214 ==

== ENCOUNTER 2023-06-14 09:13 | Outpatient (AMB) | payer OTHER, SELFPAY ==
--- NOTE | 2023-06-14 09:14 | MHC.OFFVIS ---
Intake Intake Visit Reasons: 2m follow up Intake Note: Patient is Present for Telephone Follow Up Urology Med: None Antibiotic Allergy: None Blood Thinner: None Allergies No Known Allergies [No Known Allergies*] Allergy (Verified 06/04/23 08:32) Medication List - Last Reconciled 06/14/23 by Claude Phillip MD blood sugar diagnostic (OneTouch Ultra Test strips) tid qA blood-glucose meter (OneTouch Ultra2 Meter) As directed lancets (OneTouch Delica Plus Lancet) Test blood sugar once a day metformin 850 mg PO BID ondansetron 8 mg PO Q8H HPI HPI Comments History of Present Illness Details Lalo is a pleasant male. He is a patient of Dr. Diamond. 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 Mills Well tolerated Continue with treatment surveillance marker Imaging ordered for 3 months time Will then need surveillance protocol Right testicular seminoma - pT2 Orchiectomy 04/06 - Subsequent 2 cycles [place] based chemotherapy Noted on self exam middle of January 2023 Ultrasound report states suspicious for carcinoma - acentral area of large heterogeneous mass and multiple small areas of satellite nodules with increased vascularity. The largest mass measures 3.5 x 2.8 x 3.3 cm and 1.6 x 1.3 x 1.5 cm 02/03 - CT abdomen reported as normal Testicular markers normal Pathology - 04/06 - T2 seminoma PFS Medical History Mass of right testicle Enlarged testicle Obesity Annual physical exam Type 2 diabetes mellitus Surgical History No pertinent past surgical history Family History Father Diabetes Stroke Mother Diabetes Skin cancer Maternal Grandmother No problems noted. 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 Alcohol intake: current Alcohol intake frequency: holidays/special occasions only Patient Tobacco Use Status: Never used Tobacco service: No Current occupational status: employed Cognitive needs: No Hearing needs: No Vision needs: No Review of Systems Const All systems reviewed & are unremarkable except as noted in HPI and below Reports no additional complaints Resp Reports no additional complaints GI Reports no additional complaints Reports as per HPI Musc Reports no additional complaints Physical Exam Telemedicine evaluation Appropriate responses Regular breathing rate and rhythm HEENT Head: Yes normal to inspection Ears: hearing grossly normal bilaterally Eyes General: appearance normal, both eyes and all related structures Neck Neck: Yes normal visual inspection Chest Chest palpation & inspection: normal inspection of the chest Resp Effort & Inspection: normal respiratory effort and able to speak in complete sentences Assessment & Plan Assessment & Plan (1) 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, LVI positive Code(s): C62.11 - Malignant neoplasm of descended right testis Plan 3 month follow-up imaging Orders: Orders Blood Urea Nitrogen 3 Months C62.11 - Malignant neoplasm of descended right testis Creatinine 3 Months C62.11 - Malignant neoplasm of descended right testis CT abdomen pelvis wo/w IV con 3 Months C62.11 - Malignant neoplasm of descended right testis Patient Instructions: Imaging studies, laboratory and physical exam results were discussed and reviewed in detail. No major barriers to patient understanding were identified. An opportunity to ask questions regarding the treatment plan was provided. All questions were answered. The patient expressed understanding and agreement with the above treatment plan. The patient is aware they should contact our office by phone for worsening of their current condition or the appearance of new urologic symptoms. Compliance is encouraged with any medications and followup testing that is ordered. It is a privilege to participate in the urologic care of your patient. If you have any questions or concerns regarding treatment for the above conditions, or other urologic issues, please do not hesitate to contact me. The office telephone contact is [phone]. This note is constructed using voice recognition software. While every effort has been made to ensure accuracy business system consultant errors may have been included. Yours sincerely, Dr Claude Phillip MD, [facility] - Urology Providers of Expert, Compassionate Care for the Genitourinary System Telehealth Telehealth Location of provider rendering services: practice address Location of patient: address on file Patient Identification confirmed using: Name, : Yes Telehealth method: video Patient verbally consented to treatment: Yes Patient verbally consented to billing insurance company: Yes Patient informed of any privacy concerns related to visit: Yes Coding Level of Care Code Tele Est Pt Level 3 (59546) Diagnoses Seminoma of descended right testis C62.11
== END 2023-06-14 10:23 | disposition home or self-care (01) ==
LOC: HO.HUSH 09:13
PROVIDERS: PCP Internal Medicine; Visit Provider Urology
DX: C62.11 Malignant neoplasm of descended right testis (principal)
CPT/HCPCS: 99024

== ENCOUNTER → 2023-06-14 09:13 | Outpatient (BNVA) | payer OTHER, SELFPAY | PROVIDERS: PCP Internal Medicine; Visit Provider Urology ==

== ENCOUNTER 2023-07-23 09:17 | Outpatient (AMB) | payer OTHER, SELFPAY ==
[2023-07-23 09:20] VITALS: BP 120/80; PULSE 77; O2SAT 98; BMI 32.1
--- NOTE | 2023-07-23 09:20 | MHC.PC.OV ---
Vital Signs 07/23/23 09:20 Height 6 ft 3 in Weight 257 lb BMI 32.1 BP 120/80 Blood Pressure Location Lt brachial Position Sitting Pulse 77 Pulse Source Pulse Oximeter Pulse Oximetry (%) 98 Oxygen Delivery Method Room Air Intake Visit Reasons: PE Intake Note: Pt is here today for PE. Allergies No Known Allergies [No Known Allergies*] Allergy (Verified 07/23/23 09:22) Medication List - Last Reconciled 07/23/23 by Abiola Diamond MD blood sugar diagnostic (OneTouch Ultra Test strips) tid [facility] blood-glucose meter (OneTouch Ultra2 Meter) As directed blood-glucose sensor (Dexcom G7 Sensor device) As directed lancets (OneTouch Delica Plus Lancet) Test blood sugar once a day metformin 850 mg PO BID semaglutide (Ozempic) 0.25 mg (0.368 mL) subcut QWEEK Tobacco use date assessed: 07/23/23 Dental Screening Dental Screen Date: 07/23/23 Did you have a dental visit in the last 12 months?: Yes Did you have a dental problem in the last 6 months where you did not have access to dental care?: No Was dental information given to patient?: Patient has dentist HPI PE HPI Details Patient presents for physical. He follows up with urology for history seminoma status post orchiectomy and 2 cycles of chemo completed in May. Patient has been monitoring his blood glucose with Dexcom 6 and reports fluctuating blood glucose readings between 100 to over 200. He has been trying to eat low carb high keto diet and started exercising. Patient reports 2 episodes of lightheadedness, chest pressure and right ear discomfort after jogging resolved at rest after few mins a month. He modified his exercise routine since then. Patient denies any resting chest pain shortness of breath or dizziness. [facility] Medical History (Updated 07/23/23 @ 10:44 by Abiola Diamond MD) Obesity Annual physical exam Type 2 diabetes mellitus Surgical History No pertinent past surgical history Family History Father Diabetes Stroke Mother Diabetes Skin cancer Maternal Grandmother No problems noted. 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 Alcohol intake: current Alcohol intake frequency: holidays/special occasions only Patient Tobacco Use Status: Never used Tobacco e-Cigarette/Vaping Use: Never Used service: No Current occupational status: employed Cognitive needs: No Hearing needs: No Vision needs: No Questionnaire Thrive Questionnaire I am a: Patient What is your living situation today?: I have a steady place to live Within the past 12 months, did the food you bought not last and you didn't have the money to get more?: Never true Within the past 12 months, did you worry whether your food would run out before you got money to buy more?: Never true Please select the resources that you would like help with: Food AUDIT C Alcohol Use Questionnaire (AUDIT-C) 1. How often do you have a drink containing alcohol?: Never 2. How many drinks containing alcohol do you have on a typical day when you are drinking?: 1 or 2 3. How often do you have six or more drinks on one occasion?: Never Total Score: 0 MARIYA-7 AMB Questionnaire MARIYA-7 Feeling nervous, anxious, or on edge: 0 = Not at all Not being able to stop or control worryin = Not at all Worrying too much about different things: 0 = Not at all Trouble relaxin = Not at all Being so restless that it is hard to sit still: 0 = Not at all Becoming easily annoyed or irritable: 1 = Several days Feeling afraid as if something awful might happen: 0 = Not at all Total MARIYA-7 score (0-4 normal; 5-9 mild; 10-14 moderate; 15-21 severe): 1 Source: Developed by Drs. Noel Little, Lucy Santiago, Grzegorz Vasques and colleagues, with an educational ita from [employer]. Review of Systems Const All systems reviewed & are unremarkable except as noted in HPI and below Reports no additional complaints Eyes Reports no additional complaints ENT Reports no additional complaints Card Reports no additional complaints Resp Reports no additional complaints GI Reports no additional complaints Reports no additional complaints Physical exam (Primary Care) Vital Signs: Last Vital Signs Pulse 77 07/23/23 09:20 BP 120/80 07/23/23 09:20 Pulse Ox 98 07/23/23 09:20 Oxygen Delivery Method Room Air 07/23/23 09:20 BMI result Body Mass Index 32.1 Tobacco/Smoking Status: Tobacco use Status Tobacco use date assessed 07/23/23 07/23/23 09:24 Patient Tobacco Use Status Never used Tobacco 07/23/23 09:24 e-Cigarette/Vaping Use Never Used 07/23/23 09:24 Const General: no acute distress HENMT General nose exam: Normal external nose present Mouth: Normal oral and palatal mucosa present Throat: Yes posterior oropharynx normal Eyes General: appearance normal, both eyes and all related structures Neck Neck: Yes no lymphadenopathy and Yes supple Resp Effort & Inspection: normal respiratory effort Auscultation: clear to auscultation bilaterally Cardio Rhythm: regular rhythm Heart sounds: S1 normal heart sound present and S2 normal heart sound present GI Inspection: Yes normal to inspection Palpation (GI): Soft to palpation Percussion: Yes normal to percussion Extrem Other: Diabetic foot exam : skin is intact monofilament and vibration sensation intact bilaterally General: Yes no clubbing, cyanosis or edema Results AMB Hemoglobin A1c AMB Hemoglobin A1c 7.7 % Last Edit by SHARON Alvarado on 07/23/23 10:01 Results Reviewed Results Reviewed: Laboratory Last Values Hgb A1c (Clinic) 7.7 % (4.0-6.0) H 07/23/23 10:01 Assessment and Plan Assessment & Plan (1) Type 2 diabetes mellitus: Code(s): E11.9 - Type 2 diabetes mellitus without complications Plan: A1c is 7.7 today, ADA diet increase physical activity weight loss discussed with the patient. He will continue metformin and Ozempic 0.25 for the 1st month and increased to 0.5 mg will be started. Side effects discussed with the pt. he will have a fasting blood work today (2) Annual physical exam: Code(s): Z00.00 - Encounter for general adult medical examination without abnormal findings Plan: Well-balanced diet regular physical activity weight loss discussed with the patient (3) Chest pain: Code(s): R07.9 - Chest pain, unspecified Plan: For the episode of exertional chest pain and risk factor including longstanding diabetes for 20 years. EKG showed normal sinus rhythm no ST-T changes. 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 Panel Fast Today E11.9 - Type 2 diabetes mellitus without complications, Z00.00 - Encounter for general adult medical examination without abnormal findings Hemoglobin A1c Today E11.9 - Type 2 diabetes mellitus without complications, Z00.00 - Encounter for general adult medical examination without abnormal findings Lipid Panel Today E11.9 - Type 2 diabetes mellitus without complications, Z00.00 - Encounter for general adult medical examination without abnormal findings Microalbumin, Random (w Creat) Today E11.9 - Type 2 diabetes mellitus without complications, Z00.00 - Encounter for general adult medical examination without abnormal findings CA stress test Today E11.9 - Type 2 diabetes mellitus without complications, R07.9 - Chest pain, unspecified AMB EKG-In Office Today E11.9 - Type 2 diabetes mellitus without complications, R07.9 - Chest pain, unspecified AMB Hemoglobin A1c Today Z13.9 - Encounter for screening, unspecified Complete Blood Count Auto Diff Today E11.9 - Type 2 diabetes mellitus without complications, Z00.00 - Encounter for general adult medical examination without abnormal findings Medications: New semaglutide (Ozempic) for 4 weeks, then 0.5 mg weekly 0.25 mg (0.368 mL) subcut QWEEK 3 mL 2RF blood-glucose sensor (Dexcom G7 Sensor device) As directed 3 ea 5RF Coding Level of Care Code Est Pt Prev Care 40-64y(12920) Diagnoses Type 2 diabetes mellitus E11.9 Annual physical exam Z00.00 Chest pain R07.9 Seminoma of descended right testis C62.11
== END 2023-07-23 10:51 | disposition home or self-care (01) ==
PROVIDERS: PCP Internal Medicine; Visit Provider Internal Medicine
DX: Z00.00 Encounter for general adult medical examination without abnormal findings (principal); E11.9 Type 2 diabetes mellitus without complications; C62.11 Malignant neoplasm of descended right testis; R07.9 Chest pain, unspecified
CPT/HCPCS: 83036; 93000; 99396

== ENCOUNTER 2023-07-23 10:36 | Outpatient (REF) | payer OTHER, SELFPAY ==
[2023-07-23 12:55] LABS: MANUAL DIFF FLAG NO
[2023-07-23 13:10] LABS: Basophils Absolute Auto 0.1 X10*3/uL (0.0-0.2); Basophils Percent Auto 1.1 % (0-2); Eosinophils Absolute Auto 0.2 X10*3/uL (0.0-0.4); Eosinophils Percent Auto 3.2 % (0-4); Hematocrit 41.2 % (42.0-52.0); Hemoglobin 13.7 g/dl (14.0-18.0); Imm Gran Abs Auto 0.02 X10*3/uL (0.00-0.03); Imm Gran Pct Auto 0.4 % (0.0-0.4); Lymphocytes Absolute Auto 1.6 X10*3/uL (1.2-4.9); Lymphocytes Percent Auto 30.1 % (20-40); Mean Corpuscular HGB Conc 33.3 g/dl (31.0-36.0); Mean Corpuscular Hemoglobin 29.2 pg (27.0-33.0); Mean Corpuscular Volume 87.8 fL (80.0-98.0); Mean Platelet Volume 9.7 fL (9.4-12.4); Monocytes Absolute Auto 0.5 X10*3/uL (0.1-1.2); Monocytes Percent Auto 8.9 % (2-11); Neutrophils Percent Auto 56.3 % (45-73); Platelet Count 214 X10*3/uL (160-400); Red Blood Count 4.69 X10*6/uL (4.60-5.80); Red Cell Distribution Width 14.3 % (11.0-16.0); White Blood Count 5.4 X10*3/uL (4.8-10.8)
[2023-07-23 13:27] LABS: Alanine Aminotransferase 51 U/L (0-40); Albumin Level 4.6 g/dL (3.5-5.0); Alkaline Phosphatase 58 U/L (39-117); Anion Gap 10 (12-20); Aspartate Amino Transferase 29 U/L (5-37); Bilirubin Total 0.4 mg/dL (0.0-1.0); Blood Urea Nitrogen 16 mg/dL (9-16); Calcium 10.1 mg/dL (8.4-10.2); Carbon Dioxide 30 mmol/L (22-29); Chloride 104 mmol/L (96-108); Cholesterol 181 mg/dL (<200); Estimated Glomerular Filt Rate > 60; Glucose Fasting 136 mg/dL (60-99); HDL Cholesterol 49 mg/dL (>40); LDL Cholesterol Calculated 109 mg/dL (<100); Potassium 4.3 mmol/L (3.3-5.1); Sodium 140 mmol/L (135-145); Triglycerides 115 mg/dL (<150)
[2023-07-23 13:53] LABS: Estimated Average Glucose 151 mg/dL; Hemoglobin A1c % 6.9 % (<6.0)
[2023-07-23 14:16] LABS: Creatinine Urine 232.65 mg/dL; Microalbum/Creatinine Ratio Ur 3.8 ug/mg cr (<30)
== END 2023-07-23 10:37 | disposition home or self-care (01) ==
LOC: HO.HMGCLDS 10:36
PROVIDERS: PCP Internal Medicine; Visit Provider Internal Medicine
DX: Z00.00 Encounter for general adult medical examination without abnormal findings (principal); E11.9 Type 2 diabetes mellitus without complications
CPT/HCPCS: 36415; 80053; 80061; 82043; 82570; 83036; 85025

== ENCOUNTER → 2023-08-02 08:14 | Outpatient (REF) | payer OTHER, SELFPAY ==
--- NOTE | 2023-08-02 | CA_ITS ---
Acquisition Time: 2023-08-02 08:45:46 Total Exercise Time: 00:07:16 Test Indications: CP Medications: SEE H Protocol: REY Max HR: 181 BPM 101% of Pred: 179 BPM Max BP: 170/068 mmHG Max Work Load: 8.9 METS Exercise stress test with exercise 7 min 16 sec of Rey protocol, achieviing 101% MPHR, with mild sob, no chest discomfort, with isolated PVCs at near peak and peak exercise, with mildly elevated BP at baseline and appropriate response to exercise,without EKG changes that meet crtieria for ischemia. In recovery his breathing normalized. Test reviewed with Dr Britton Referred By: Abiola Diamond Overread By: ERASMO LENNON
== END ==
LOC: HO.CARD 08:14
PROVIDERS: PCP Internal Medicine; Visit Provider Internal Medicine
DX: R07.9 Chest pain, unspecified (principal); E11.9 Type 2 diabetes mellitus without complications
CPT/HCPCS: 93017

== ENCOUNTER → 2023-08-02 08:45 | Outpatient (BNV) | payer OTHER, SELFPAY | PROVIDERS: PCP Internal Medicine; Visit Provider Nurse Practitioner Family | DX: R06.02 Shortness of breath (principal); R07.9 Chest pain, unspecified | CPT/HCPCS: 93016; 93018 ==

== ENCOUNTER 2023-09-09 07:53 | Outpatient (REF) | payer OTHER, SELFPAY ==
--- NOTE | ~2023-09-09 | CT_ITS ---
EXAMINATION: CT ABDOMEN AND PELVIS WITHOUT AND WITH CONTRAST CLINICAL INFORMATION: Malignant neoplasm of nondistended right testis. COMPARISON: CT abdomen and pelvis 03/14/2023. TECHNIQUE: Multidetector volumetric imaging was performed of the abdomen and pelvis before and after the IV administration of 85 mL of Omnipaque 350 intravenous contrast. Sagittal and coronal reformatted images were obtained on the technologist's workstation. This CT examination was performed using dose optimization techniques as appropriate, variously including the following: *Automated exposure control *Adjustment of mA and/or kV according to patient size (this includes techniques or standardized protocols for targeted exams where dose is matched to indication/reason for exam; i.e. extremities or head) *Use of iterative reconstruction technique DLP: 1795 mGy-cm FINDINGS: LUNG BASES: The lung bases are clear. The heart size is normal. LIVER, GALLBLADDER, AND BILIARY TREE: The liver is normal in size and shape with mild hypo-attenuation. No focal hepatic lesion or biliary ductal dilatation is present. The gallbladder is unremarkable with no evidence of radiopaque gallstones, gallbladder wall thickening, or obvious pericholecystic inflammatory changes. PANCREAS: Unremarkable. SPLEEN: Unremarkable. ADRENAL GLANDS: Unremarkable. KIDNEYS AND URETERS: The kidneys are normal in size, shape, and attenuation. No hydronephrosis, hydroureter, or calculi seen. No perinephric stranding. BLADDER: Unremarkable GASTROINTESTINAL TRACT: There is scattered stool and gas seen throughout the colon without significant distention. The small bowel loops are normal caliber. Appendix is not visualized. No free air or free fluid. ABDOMINAL WALL: No significant hernia is appreciated. There is mild haziness along the right inguinal canal likely previous postsurgical changes. LYMPH NODES: Normal. VASCULAR: Unremarkable. PELVIC VISCERA: Unremarkable. OSSEOUS STRUCTURES: No aggressive lytic or sclerotic process seen. CT/CT abdomen pelvis wo/w IV con IMPRESSION: 1. No acute intra-abdominal process seen. 2. Mild constipation. 3. Mild hepatic steatosis, stable 4. No change from previous CT 03/14/2023 Fleischner guidelines were followed.
[2023-09-09] MEDS: iohexoL 350 MG/ML 100 ML INFUS..BTL 85 ML IV (08:34)
== END 2023-09-09 07:54 | disposition home or self-care (01) ==
LOC: HO.CT 07:53
PROVIDERS: PCP Internal Medicine; Visit Provider Urology
DX: C62.11 Malignant neoplasm of descended right testis (principal)
CPT/HCPCS: 74178; Q9967

== ENCOUNTER 2023-09-20 09:18 | Outpatient (AMB) | payer OTHER, SELFPAY ==
--- NOTE | 2023-09-20 09:22 | MHC.OFFVIS ---
Intake Intake Visit Reasons: 3m/CT(set) Intake Note: Patient is Present for Follow Up Seminoma of descended right testis Urology Medication: None Antibiotic Allergies:None Blood Thinners:None Confirmed Pharmacy: [facility] Last Visit: Seminoma of descended right testis Plan 3 month follow-up imaging Allergies No Known Allergies [No Known Allergies*] Allergy (Verified 09/20/23 09:38) HPI HPI Comments History of Present Illness Details Lalo is a pleasant male. He is a patient of Dr. Diamond. 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 He is seen for the following urologic conditions - right testicular seminoma pT2 Three-month follow-up Will need surveillance protocol for seminoma - six-month follow-up labs and imaging Imaging 09/07 CT NAD Right testicular seminoma - pT2 Orchiectomy 04/06 - Subsequent 2 cycles [place] based chemotherapy Noted on self exam middle of January 2023 Ultrasound report states suspicious for carcinoma - acentral area of large heterogeneous mass and multiple small areas of satellite nodules with increased vascularity. The largest mass measures 3.5 x 2.8 x 3.3 cm and 1.6 x 1.3 x 1.5 cm 02/03 - CT abdomen reported as normal Testicular markers 05/06 bHCG <5, AFP - 3.0 Pathology - 04/06 - T2 seminoma [facility] Medical History Obesity Annual physical exam Type 2 diabetes mellitus Surgical History No pertinent past surgical history Family History Father Diabetes Stroke Mother Diabetes Skin cancer Maternal Grandmother No problems noted. 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 Alcohol intake: current Alcohol intake frequency: holidays/special occasions only Patient Tobacco Use Status: Never used Tobacco e-Cigarette/Vaping Use: Never Used service: No Current occupational status: employed Cognitive needs: No Hearing needs: No Vision needs: No Review of Systems Const Denies chills and Denies fever(s) Card Reports no additional complaints and Denies syncope Resp Denies cough GI Denies abdominal pain and Denies heartburn Reports as per HPI and Denies change in libido Neuro Denies syncope Psych Denies change in libido Endo Denies change in libido Physical Exam Const General: cooperative, healthy appearing, comfortable and no acute distress Orientation/consciousness: patient oriented x3 HEENT Face and sinus: Yes normal facial exam Mouth: moist mucous membranes Neck Neck: Yes normal visual inspection, Yes full ROM and Yes trachea midline Chest Chest palpation & inspection: normal inspection of the chest Resp Effort & Inspection: normal respiratory effort, able to speak in complete sentences and no respiratory distress GI Inspection: Yes normal to inspection Back/Spine/Pelvis Cervical Spine: normal cervical lordosis Thoracic/Lumbar Spine: thoracic and lumbar spine normal to inspection Skin General skin exam: no rashes or lesions noted Neuro General: patient oriented x3, gait normal, tone normal and moves all extremities Extrem General: Yes normal to inspection and Yes capillary refill normal Assessment & Plan Assessment & Plan (1) 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, LVI positive Code(s): C62.11 - Malignant neoplasm of descended right testis Plan Six-month follow-up imaging Orders: Orders CT abdomen wo IV con 6 Months C62.11 - Malignant neoplasm of descended right testis Alpha Fetoprotein 6 Months C62.11 - Malignant neoplasm of descended right testis HCG Tumor Marker 6 Months C62.11 - Malignant neoplasm of descended right testis, C62.90 - Malignant neoplasm of unspecified testis, unspecified whether descended or undescended CT pelvis wo IV con 6 Months C61 - Malignant neoplasm of prostate, C62.11 - Malignant neoplasm of descended right testis Patient Instructions: Imaging studies, laboratory and physical exam results were discussed and reviewed in detail. No major barriers to patient understanding were identified. An opportunity to ask questions regarding the treatment plan was provided. All questions were answered. The patient expressed understanding and agreement with the above treatment plan. The patient is aware they should contact our office by phone for worsening of their current condition or the appearance of new urologic symptoms. Compliance is encouraged with any medications and followup testing that is ordered. It is a privilege to participate in the urologic care of your patient. If you have any questions or concerns regarding treatment for the above conditions, or other urologic issues, please do not hesitate to contact me. The office telephone contact is [phone]. This note is constructed using voice recognition software. While every effort has been made to ensure accuracy tractor trailer operator errors may have been included. Yours sincerely, Dr Claude Phillip MD, [facility] - Urology Providers of Expert, Compassionate Care for the Genitourinary System Coding Level of Care Code Est Pt Level 4 (88262) Diagnoses Seminoma of descended right testis C62.11
== END 2023-09-20 10:34 | disposition home or self-care (01) ==
PROVIDERS: PCP Internal Medicine; Visit Provider Urology
DX: C62.11 Malignant neoplasm of descended right testis (principal)
CPT/HCPCS: 99214

== ENCOUNTER → 2023-09-20 09:18 | Outpatient (BNVA) | payer OTHER, SELFPAY | PROVIDERS: PCP Internal Medicine; Visit Provider Urology ==

== ENCOUNTER 2023-10-21 07:47 | Outpatient (AMB) | payer OTHER, SELFPAY ==
[2023-10-21 08:05] VITALS: BP 110/76; PULSE 89; O2SAT 98; BMI 31.1
--- NOTE | 2023-10-21 08:05 | MHC.PC.OV ---
Vital Signs 10/21/23 08:05 Height 6 ft 3 in Weight 249 lb BMI 31.1 BP 110/76 Blood Pressure Location Lt brachial Position Sitting Pulse 89 Pulse Source Pulse Oximeter Pulse Oximetry (%) 98 Oxygen Delivery Method Room Air Intake Visit Reasons: 3 Month follow up Intake Note: Pt is here today for 3 months follow up visit. Allergies No Known Allergies [No Known Allergies*] Allergy (Verified 10/21/23 08:07) Medication List - Last Reconciled 10/21/23 by Abiola Diamond MD blood sugar diagnostic (OneTouch Ultra Test strips) tid qA blood-glucose meter ([employer] EnergyTouch Ultra2 Meter) As directed blood-glucose sensor (Spectrum Bridge G7 Sensor device) As directed lancets (Dejour EnergyTouch Delica Plus Lancet) Test blood sugar once a day metformin 850 mg PO BID semaglutide (Ozempic) 0.25 mg (0.368 mL) subcut QWEEK Tobacco use date assessed: 10/21/23 Dental Screening Dental Screen Date: 07/23/23 HPI 3 Month follow up HPI Details Pt presents for f/u DM 2, stable on meds. He has been tolerating Ozempic well and reports fasting glucose readings between 80-120. [facility] Medical History Obesity Annual physical exam Type 2 diabetes mellitus Surgical History No pertinent past surgical history Family History Father Diabetes Stroke Mother Diabetes Skin cancer Maternal Grandmother No problems noted. 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 1. Little interest or pleasure in doing things: not at all 2. Feeling down, depressed, or hopeless: not at all 3. Trouble falling or staying asleep, or sleeping too much: not at all 4. Feeling tired or having little energy: not at all 5. Poor appetite or overeating: not at all 6. Feeling bad about yourself - or that you are a failure or have let yourself or your family down: not at all 7. Trouble concentrating on things, such as reading the newspaper or watching television: not at all 8. Moving or speaking so slowly that other people could have noticed. Or the opposite - being so fidgety or restless that you have been moving around a lot more than usual: not at all 9. Thoughts that you would be better off or of hurting yourself in some way: not at all Total score: 0 Depression Screening Interpretation: Negative Depression Screening Done: Yes Source: Developed by Drs. Noel Little, Lucy Santiago, Grzegorz Vasques and colleagues, with an educational ita from [employer]. Thrive Questionnaire Date Thrive assessed: 10/21/23 I am a: Patient What is your living situation today?: I have a steady place to live Within the past 12 months, did the food you bought not last and you didn't have the money to get more?: Never true Within the past 12 months, did you worry whether your food would run out before you got money to buy more?: Never true Do you have trouble paying for medicines?: No Do you have trouble getting transportation to medical appointments?: No Do you have trouble paying your heating and electricity bill?: No Do you have trouble taking care of your child, family member or friend?: No Do you have trouble with day-to-day activities such as bathing, preparing meals, shopping, managing finances, etc.?: No Are you currently unemployed and looking for a job?: No Are you interested in more education?: No Please select the resources that you would like help with: None THRIVE Score: 0 MARIYA-7 AMB Questionnaire MARIYA-7 Date MARIYA - 7 assessed: 10/21/23 Feeling nervous, anxious, or on edge: 0 = Not at all Not being able to stop or control worryin = Not at all Worrying too much about different things: 0 = Not at all Trouble relaxin = Not at all Being so restless that it is hard to sit still: 0 = Not at all Becoming easily annoyed or irritable: 0 = Not at all Feeling afraid as if something awful might happen: 0 = Not at all Total MARIYA-7 score (0-4 normal; 5-9 mild; 10-14 moderate; 15-21 severe): 0 Source: Developed by Drs. Noel Little, Lucy Santiago, Grzegorz Vasques and colleagues, with an educational ita from [employer]. Review of Systems Const All systems reviewed & are unremarkable except as noted in HPI and below Reports no additional complaints Eyes Reports no additional complaints ENT Reports no additional complaints Card Reports no additional complaints Resp Reports no additional complaints GI Reports no additional complaints Reports no additional complaints Musc Reports no additional complaints Physical exam (Primary Care) Vital Signs: Last Vital Signs Pulse 89 10/21/23 08:05 BP 110/76 10/21/23 08:05 Pulse Ox 98 10/21/23 08:05 Oxygen Delivery Method Room Air 10/21/23 08:05 BMI result Body Mass Index 31.1 Tobacco/Smoking Status: Tobacco use Status Tobacco use date assessed 10/21/23 10/21/23 08:10 Patient Tobacco Use Status Never used Tobacco 10/21/23 08:10 e-Cigarette/Vaping Use Never Used 10/21/23 08:10 PHQ-9: PHQ-9 Score PHQ-9: Total score 0 10/21/23 08:13 Depression Screening Interpretation: Negative Thrive Assessment: Date of Thrive Assessment Date Thrive assessed 10/21/23 10/21/23 08:10 Const General: no acute distress HENMT Head: Yes normal to inspection Ears: hearing grossly normal bilaterally Neck Neck: Yes supple Resp Effort & Inspection: normal respiratory effort Auscultation: clear to auscultation bilaterally Cardio Rhythm: regular rhythm Heart sounds: S1 normal heart sound present and S2 normal heart sound present GI Inspection: Yes normal to inspection Assessment and Plan Assessment & Plan (1) Type 2 diabetes mellitus: Code(s): E11.9 - Type 2 diabetes mellitus without complications Plan: Increase Ozempic to 1 mg weekly continue metformin, ADA diet increase exercise and weight loss discussed with the patient's follow-up in 3 months with a fasting labs before (2) Annual physical exam: Code(s): Z00.00 - Encounter for general adult medical examination without abnormal findings (3) Shoulder pain, left: Code(s): M25.512 - Pain in left shoulder Plan: For chronic left shoulder pain patient will be referred to physical therapy Orders: Orders Microalbumin, Random (w Creat) 3 Months E11.9 - Type 2 diabetes mellitus without complications, Z00.00 - Encounter for general adult medical examination without abnormal findings Comprehensive [place]. Panel Fast 3 Months E11.9 - Type 2 diabetes mellitus without complications, Z00.00 - Encounter for general adult medical examination without abnormal findings PT Evaluation and Treatment Today M25.512 - Pain in left shoulder Hemoglobin A1c 3 Months E11.9 - Type 2 diabetes mellitus without complications, Z00.00 - Encounter for general adult medical examination without abnormal findings Lipid Panel 3 Months E11.9 - Type 2 diabetes mellitus without complications, Z00.00 - Encounter for general adult medical examination without abnormal findings Complete Blood Count Auto Diff 3 Months E11.9 - Type 2 diabetes mellitus without complications, Z00.00 - Encounter for general adult medical examination without abnormal findings Referrals Cologuard Test Z12.11 - Encounter for screening for malignant neoplasm of colon, Z12.12 - Encounter for screening for malignant neoplasm of rectum Medications: New semaglutide (Ozempic) 1 mg (0.75 mL) subcut QWEEK 9 mL 2RF Discontinued semaglutide (Ozempic) for 4 weeks, then 0.5 mg weekly Discontinued Reason: Doctor's Order 0.25 mg (0.368 mL) subcut QWEEK 3 mL 2RF Coding Level of Care Code Est Pt Level 4 (87481) Diagnoses Type 2 diabetes mellitus E11.9 Annual physical exam Z00.00 Shoulder pain, left M25.512
== END 2023-10-21 08:33 | disposition home or self-care (01) ==
PROVIDERS: PCP Internal Medicine; Visit Provider Internal Medicine
DX: E11.9 Type 2 diabetes mellitus without complications (principal); Z00.00 Encounter for general adult medical examination without abnormal findings; M25.512 Pain in left shoulder
CPT/HCPCS: 99214

== ENCOUNTER 2023-11-05 17:29 | Emergency (ER) | payer OTHER, SELFPAY ==
--- NOTE | ~2023-11-05 | XR_ITS ---
EXAMINATION: XR HAND, LEFT CLINICAL INFORMATION: Laceration. COMPARISON: None available. TECHNIQUE: PA, lateral, and oblique views of the left hand. FINDINGS: The bones and soft tissues are normal. No fracture. Alignment is anatomic. Joint spaces are maintained. No erosions or soft tissue calcifications. XR/XR hand LT min 3V IMPRESSION: Normal left hand.
[2023-11-05 17:55] VITALS: BP 125/89; PULSE 88; RESP 17; TEMP 36.3; O2SAT 99; BMI 35.3
--- NOTE | 2023-11-05 18:04 | ED.GENADULT ---
HPI - General Adult General Chief complaint: Wound/Laceration Stated complaint: left hand laceration Time Seen by Provider: 11/05/23 20:30 Source: patient Mode of arrival: ambulatory Limitations: no limitations History of Present Illness HPI narrative: Patient is a 43-year-old right-hand dominant male presenting to the emergency department with complaint of laceration to palm of left hand. States that he was using a knife at home to attempt to separate 2 frozen hamburger patties, when the knife slipped causing a laceration. Does report some tingling to his 4th and 5th fingers of the left hand. Denies any decreased strength or range of motion. Tdap not up-to-date. 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 complaint: Laceration Onset (ago): hour(s) Related Data Previous Rx's ?Medication ?Instructions ?Recorded blood sugar diagnostic (COCCTouch #100 ea 01/30/23 Ultra Test strips) blood-glucose meter (OneTouch #1 ea 01/30/23 Ultra2 Meter) lancets 33 gauge (OneTouch Delica #100 ea 01/31/23 Plus Lancet) blood-glucose sensor ([employer] G7 #3 ea 07/23/23 Sensor device) metformin 850 mg tablet 850 mg PO BID #60 tabs 08/04/23 semaglutide 1 mg/dose (4 mg/3 mL) 1 mg (0.75 mL) subcut QWEEK #9 mL 10/21/23 subcutaneous pen injector (Ozempic) cephalexin 500 mg capsule 500 mg PO QID #12 caps 11/05/23 Allergies Allergy/AdvReac Type Severity Reaction Status Date / Time No Known Allergies Allergy Verified 11/05/23 17:56 [No Known Allergies*] Review of Systems Review of Systems: As per HPI. Yes all other systems are reviewed and are negative Constitutional: Constitutional: Reports as per HPI [facility] Past Medical History Medical History Obesity Annual physical exam Type 2 diabetes mellitus Surgical History No pertinent past surgical history Family History Family History Father Diabetes Stroke Mother Diabetes Skin cancer Maternal Grandmother No problems noted. 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 Housing: House Alcohol intake: current Alcohol intake frequency: holidays/special occasions only Patient Tobacco Use Status: Never used Tobacco e-Cigarette/Vaping Use: Never Used Advance Directives: No Advance Directives Information Provided: No Do you have a plan to hurt others: No Plan service: No Current occupational status: employed Cognitive needs: No Hearing needs: No Vision needs: No Physical Exam ED Vital Signs: Vital Signs - 24 hr 11/05/23 17:55 Temperature 97.3 F Pulse Rate 88 Respiratory Rate 17 Blood Pressure 125/89 Pulse Oximetry 99 Oxygen Delivery Method Room Air BMI result Body Mass Index 35.3 Vital signs have been reviewed and appear to be correct. Blood pressure normal. Heart rate normal. Respiratory rate normal. Temperature normal. Oxygen saturation normal. Const General: cooperative, healthy appearing and no acute distress Orientation/consciousness: oriented to person, oriented to place, oriented to time and patient oriented x3 Limitations: no limitations [facility] Head: Yes normocephalic and Yes atraumatic Ears: external ears normal General nose exam: Normal external nose present Face and sinus: Yes face symmetric Mouth: oropharynx normal and moist mucous membranes Throat: Yes uvula midline Eyes Pupils: Equal, round and reactive pupils present Neck Neck: Yes normal visual inspection and Yes supple Resp Effort & Inspection: normal respiratory effort and able to speak in complete sentences Auscultation: clear to auscultation bilaterally Cardio Rate: regular rate Rhythm: regular rhythm Heart sounds: S1 normal heart sound present and S2 normal heart sound present Skin General skin exam: elasticity normal and turgor normal Neuro General: oriented to person, oriented to place, oriented to time, patient oriented x3, moves all extremities, no focal motor deficits and CN's II-XI intact bilaterally Cranial nerves: Yes Equal, round and reactive pupils present Cognition (Neuro): normal cognition Extrem General: Yes full ROM, Yes no pedal edema and Yes no calf tenderness Left upper extremity: hand Details: normal capillary refill, neuromotor exam normal, neurosensory exam normal, tendon exam normal, normal ROM of fingers and laceration palm Details: linear and involving subcutaneous tissue Hand/finger images: 1. 1.5cm linear laceration Psych Mental Status: mental status grossly normal Affect: normal affect Thought process: Normal thought process present Course Course Course Narrative: This is an RME: Additional HPI, ROS, PE not included below will be deferred to primary provider. This is a 43-year-old male, with a history of diabetes, who presents emergency department for evaluation of left hand laceration which occurred just prior to arrival. Patient states that he was frozen hamburger patties in the knife went through his left palm. Starting to have numbness and tingling into his 4th and 5th digit. Unsure of last tetanus. Patient has 2 cm laceration with active bleeding noted. Wound and wrapped gauze. Will need suture repair. Plan: X-ray, wound repair. Medications Administered Discontinued Medications Generic Name Dose Route Start Last Admin Trade Name Freq PRN Reason Stop Dose Admin Diphtheria/Tetanus/Acell Pertussis 0.5 ml 11/05/23 18:07 11/05/23 20:17 Diphth,Pertus(Acell),Tet Adult 0.5 Ml Syringe IM 11/05/23 18:08 0.5 ml .ONCE ONE Administration Procedures Laceration Laceration 1: Site: hand Side (If applicable): left Size (cm): 1.5 Description: linear Depth: simple, single layer Local Anesthetic: lidocaine 1% Amount of anesthesia used (mL): 3 Pre-repair: wound explored, irrigated extensively and deep structures intact Skin layer closed with: other (prolene) Size (cm): 5-0 Number of sutures: 4 Technique: simple, interrupted Medical Decision Making Medical Decision Making MDM Narrative: Patient is a 43-year-old right-hand dominant male presenting to the emergency department with complaint of laceration to palm of left hand. On exam patient is awake, A+Ox3, VS WNL, afebrile, normal neurological exam without focal deficits, physical exam findings as above. Given reported symptoms and physical exam findings, initial differential includes laceration, tendon injury, fracture. X-ray notable for no evidence of a fracture. My interpretation is in agreement with the radiologist's interpretation. Laceration repaired as per procedure note. Will place patient on short course of prophylactic antibiotics as he is diabetic. Advised patient to assess wound daily for signs of infection and return if this occurs. Discussed with patient that he should change dressing daily and keep hand out of standing water especially outdoor water until wound is fully healed. Advised patient to follow-up with [facility] [employer] [facility] for return to work clearance at full duty. Discussed with patient that if numbness and tingling to his fingers is ongoing, he should follow-up with Dr. Breen. Return precautions discussed at bedside. Patient verbalized understanding of and agreement with plan. Differential Diagnosis Differential Diagnoses: The differential diagnosis associated with the presentation includes As per MDM. Independent Interpretation I performed an independent interpretation of an: Plain X-Ray Interpretation: No evidence of fracture to left hand Radiology Impression Discussion of test interpretation with radiology: I have reviewed the radiologist's reading. Radiologist Impression: XR/XR hand LT min 3V IMPRESSION: Normal left hand. External Record Review External record reviewed: Inpatient record, Office record and Outpatient record Prescription Management I considered prescription management with: Antibiotic Chronic Conditions Patient?s care impacted by: Diabetes Discharge Plan Discharge Clinical Impression: Laceration of hand Qualifiers: Encounter type: initial encounter Foreign body presence: without foreign body Laterality: left Qualified Code(s): S61.412A - Laceration without foreign body of left hand, initial encounter Patient Disposition: Home, Self-Care Instructions: Care For Your Stitches (DC), Laceration (DC), Stitches Removal (ED) Additional Instructions: You have been evaluated in the emergency department today for a laceration to your hand. Your laceration was repaired in the emergency department with 4 sutures. Please keep the area surrounding the laceration clean and dry and keep dressing in place for the next 24 hours. After that please change the dressing and assess the wound daily. Keep the area out of standing water, especially outdoor water, until the wound has fully healed. You should have the sutures removed in 7-10 days. If you develop fever, redness, swelling at the site of your laceration, or thick yellow drainage please come back to the ER for a wound check. Please follow up with Dr. Breen for any ongoing numbness/tingling. You are being treated with a short course of antibiotics to prevent infection, please complete the full course as prescribed. Please follow up with [facility] at [place], . Prescriptions: New cephalexin 500 mg capsule 500 mg PO QID Qty: 12 0RF No Action (DME) blood-glucose meter [OneTouch Ultra2 Meter] Misc See Rx Instructions .Route Qty: 1 0RF Rx Instructions: As directed (DME) OneTouch Ultra Test Strip See Rx Instructions .Route Qty: 100 3RF Rx Instructions: tid qAC (DME) lancets [OneTouch Delica Plus Lancet] 33 gauge misc See Rx Instructions .Route Qty: 100 3RF Rx Instructions: Test blood sugar once a day metformin 850 mg tablet 850 mg PO BID Qty: 60 5RF (DME) Dexcom G7 Sensor Device See Rx Instructions .Route Qty: 3 5RF Rx Instructions: As directed Ozempic 1 mg/dose (4 mg/3 mL) pen injector 1 mg subcut QWEEK Qty: 9 2RF Referrals: Leesa Breen MD [Physician] - Stand Alone Forms: Work/School Release Print Language: Persian
[2023-11-05] MEDS: Diphth,Pertus(ACell),Tet Adult 0.5 ML SYRINGE IM (20:17)
--- NOTE | 2023-11-05 20:25 | PC.NURSE ---
pt medicated per order
--- NOTE | 2023-11-05 20:37 | PC.NURSE ---
pts hand soaking per request of provider
[2023-11-05] MEDS: Lidocaine HCl 1 % MPF 5 ML VIAL INFILTRATI (21:30)
[2023-11-05] MEDS: Bacitracin Oint 0.9 GM PACKET 1 APPL TOPICAL (21:30)
--- NOTE | 2023-11-05 21:30 | PC.NURSE ---
lido and bactrum given by provider before this rn took over.
[2023-11-05 21:34] VITALS: BP 133/94; PULSE 89; RESP 16; TEMP 37.2; O2SAT 99
[2023-11-05 21:37] VITALS: BP 133/94; PULSE 89; RESP 16; TEMP 37.2; O2SAT 99
== END 2023-11-05 21:41 | disposition home or self-care (01) ==
PROVIDERS: Emergency Provider Internal Medicine; PCP Internal Medicine
DX: S61.412A Laceration without foreign body of left hand, initial encounter (principal); W26.0XXA Contact with knife, initial encounter; Y93.G1 Activity, food preparation and clean up; Y92.009 Unspecified place in unspecified non-institutional (private) residence as the place of occurrence of the external cause; Y99.9 Unspecified external cause status; E11.9 Type 2 diabetes mellitus without complications; Z23 Encounter for immunization
CPT/HCPCS: 12001; 73130; 90471; 90715; 99284

== ENCOUNTER 2023-11-06 11:44 | Outpatient (AMB) | payer OTHER, SELFPAY ==
[2023-11-06 11:43] VITALS: BP 140/70; PULSE 81; TEMP 36.3; O2SAT 97; BMI 32.0
--- NOTE | 2023-11-06 11:43 | MHC.OFFWIV ---
Intake Vital Signs 11/06/23 11:43 Height 6 ft 3 in Weight 256 lb BMI 32.0 BP 140/70 H Blood Pressure Location Lt brachial Position Sitting Pulse 81 Pulse Source Pulse Oximeter Temp 97.4 F Temp Source Temporal Artery Scan Pulse Oximetry (%) 97 Oxygen Delivery Method Room Air Intake Visit Reasons: EP work note [facility] did not provide 7-10 days Intake Note: pt is here today for work note Patient Tobacco Use Status: Never used Tobacco Allergies No Known Allergies [No Known Allergies*] Allergy (Verified 11/06/23 12:11) Medication List - Last Reconciled 11/06/23 by Ja Ascencio MD blood sugar diagnostic (Silverback MediaTouch Ultra Test strips) tid qAC blood-glucose meter ([employer] Ultra2 Meter) As directed blood-glucose sensor ([employer] G7 Sensor device) As directed cephalexin 500 mg PO QID lancets (Silver[employer] MediaTouch Delica Plus Lancet) Test blood sugar once a day metformin 850 mg PO BID semaglutide (Ozempic) 1 mg (0.75 mL) subcut QWEEK Do you need a note to return to daycare/school/sports/work: Yes HPI EP work note [facility] did not provide 7-10 days HPI Details 43 yr old male presents to the office for a sick visit. 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 He cut his left palm yesterday with a kitchen knife. Was seen in the ER and required stiches. Was not given a NFW. Needs the same. Pt unable to do his regular duties because of the injuries to the palm. [facility] Medical History Obesity Annual physical exam Type 2 diabetes mellitus Surgical History No pertinent past surgical history Family History Father Diabetes Stroke Mother Diabetes Skin cancer Maternal Grandmother No problems noted. 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 Not removed. Able to move all digits. Assessment & Plan Assessment & Plan (1) Open wound of hand: Code(s): S61.409A - Unspecified open wound of unspecified hand, initial encounter Plan: Note for work given. Pt advised to return next week for suture removal. Coding Level of Care Code Est Pt Level 3 (50510) Diagnoses Open wound of hand S61.409A
== END 2023-11-06 12:10 | disposition home or self-care (01) ==
PROVIDERS: PCP Internal Medicine; Visit Provider Internal Medicine
DX: S61.409A Unspecified open wound of unspecified hand, initial encounter (principal)
CPT/HCPCS: 99213

== ENCOUNTER 2023-11-08 13:31 | Outpatient (AMB) | payer OTHER, SELFPAY ==
[2023-11-08 13:43] VITALS: BMI 32.0
--- NOTE | 2023-11-08 13:43 | A.OFFVIS_ITS ---
Vital Signs 11/08/23 13:43 Height 6 ft 3 in Weight 256 lb BMI 32.0 Intake Visit Reasons: FC- lac. of his LT hand 4th and 5th digits Intake Note: Lalo 43 yr old male right hand dominant male presents today for his left hand palmar aspect of hand. States he on 11/05/23. He was trying to use a knife to separate 2 frozen hamburger patties and cut himself when the knife slipped. He has mild tingling and numbness in is ring and pinky finger. He has increase pain with certain movement. Seen in ED same day where he received 4 stitches and referred to orthopedic for further evaluation. His last A1C was checked in July -.9 Allergies No Known Allergies [No Known Allergies*] Allergy (Verified 11/08/23 13:49) HPI HPI FC- lac. of his LT hand 4th and 5th digits: Details: 43-year-old right hand dominant male who presents to the office today for evaluation of left 4th and 5th metacarpal injury which he sustained while trying to use a knife to separate 2 frozen hamburger patties and cut himself when the knife slipped. He was seen at ED the same day where he received 4 stitches and was referred to our office for further evaluation. He currently states he has mild pain, mild tingling as well as electrical sensation in his 4th and 5th d igits. He has a history of diabetes. His last checked A1c was 6.9% in July. 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 [facility] Medical History Obesity Annual physical exam Type 2 diabetes mellitus Surgical History No pertinent past surgical history Family History Father Diabetes Stroke Mother Diabetes Skin cancer Maternal Grandmother No problems noted. 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 He does have a laceration along the 2nd palmar crease in line with the ring middle finger. No drainage, no erythema. He has decreased sensation along the web space of the small and ring finger. Full sensation throughout the ring finger. FDP and FDS are intact. Extension is intact. Pulses are present. Assessment & Plan Assessment & Plan (1) Ulnar nerve laceration: Code(s): S54.00XA - Injury of ulnar nerve at forearm level, unspecified arm, initial encounter Category: Medical Qualifiers: Encounter type: initial encounter Laterality: left Qualified Code(s): S54.02XA - Injury of ulnar nerve at forearm level, left arm, initial encounter Plan I had a phone conversation with Dr. Breen. Given the extent of his injury it appears that he has laceration over the bhagat ulnar digit nerve region and may benefit from surgical intervention. He will return next week to meet with Dr. Breen for further evaluation. In the meantime, he will work light duty as a geophysical laboratory chief and see me back as discussed. Patient Instructions: Scribed for Leon Pang PA-C, by Finn Burrell medical accounting clerk, on 11/08/2023 at 1:30 PM EST. Leon Dozier PA-C, have personally reviewed and agree with the information entered by the scribe. Coding Level of Care Code New Pt Level 3 (11961) Diagnoses Laceration of left ulnar nerve, initial encounter S54.02XA Encounter type: initial encounter Laterality: left
== END 2023-11-08 14:18 | disposition home or self-care (01) ==
PROVIDERS: PCP Internal Medicine; Visit Provider Physician Assistant
DX: S54.02XA Injury of ulnar nerve at forearm level, left arm, initial encounter (principal)
CPT/HCPCS: 99203

== ENCOUNTER → 2023-11-08 13:31 | Outpatient (BNVA) | payer OTHER, SELFPAY | PROVIDERS: PCP Internal Medicine; Visit Provider Physician Assistant ==

== ENCOUNTER 2023-11-13 10:13 | Outpatient (AMB) | payer OTHER, SELFPAY ==
[2023-11-13 10:17] VITALS: BMI 32.0
--- NOTE | 2023-11-13 10:17 | A.OFFVIS_ITS ---
Vital Signs 11/13/23 10:17 Height 6 ft 3 in Weight 256 lb BMI 32.0 Intake Visit Reasons: O/V lac. of LT hand 4th & 5th digits-follow up Intake Note: Lalo 43 yr old right hand dominant male presents today for his follow up visit for his laceration of his LT hand 4th and 5th digits. States on 11/05/23 he was trying to use a knife to separate 2 frozen hamburger patties and cut himself when the knife slipped. He was last seen with Mark Infante on 11/08/23 who wants patient to be seen with Dr. Breen for further evaluation. States he has a weird tingling sensation mostly in his pinky. Allergies No Known Allergies [No Known Allergies*] Allergy (Verified 11/13/23 10:17) HPI HPI O/V lac. of LT hand 4th & 5th digits-follow up: Details: Lalo is a 43 year old right hand dominant Diabetic man who presents to discuss his left hand laceration. He cut his left palm on 11/05/23 when preparing dinner. He was seen in the ED same day, and seen by LOULOU Infante on 11/08/23. He says he is doing well overall. He denies any pain at rest and says the majority of his pain occurs when he tries to extend his small finger. He says he has some tingling in his small finger. He says his ring finger numbness has improved. He denies any numbness in the thumb, index, and middle fingers. 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 He says his Diabetes is well- controlled. [facility] Medical History Obesity Annual physical exam Type 2 diabetes mellitus Surgical History No pertinent past surgical history Family History Father Diabetes Stroke Mother Diabetes Skin cancer Maternal Grandmother No problems noted. 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 Cognitive needs: No Hearing needs: No Vision needs: No Review of Systems Const All systems reviewed & are unremarkable except as noted in HPI and below Physical Exam Vital Signs: BMI result Body Mass Index 32.0 Const General: cooperative, healthy appearing and no acute distress Orientation/consciousness: patient oriented x3 HEENT Head: Yes normocephalic and Yes atraumatic Eyes EOM: EOMs intact bilaterally Resp Effort & Inspection: normal respiratory effort and able to speak in complete sentences Cardio Jugular venous distension: no JVD Skin General skin exam: turgor normal Rashes: no rashes Neuro General: patient oriented x3 Extrem Other: Evaluation of Left Upper Extremity: The patient is alert, oriented, and in no acute distress Neuro: He has normal sensation in the median nerve distribution. Numbness in the radial digital nerve distribution of the small finger Improved and almost normal sensation in the ulnar digital nerve distribution of the ring finger. The patient again says that this is improved compared with when he was last seen. Vascular: Cap refill brisk ROM: He can make a fist and extend all his digits He has some discomfort in the area of the laceration when bringing his small finger into full extension FDP & FDS tendons intact to all digits, including to the small finger. No pain with resisted flexion of the small or ring fingers. Skin: He has a sutured transverse laceration, measuring ~1.5cm in length, in line with the ring finger at the mid-palmar crease. He has some resolving palmar ecchymosis General: No Erythema or evidence of infection. Psych Appearance: grossly normal Affect: normal affect Attitude: cooperative Assessment & Plan Assessment & Plan (1) Laceration of left palm: Code(s): S61.412A - Laceration without foreign body of left hand, initial encounter Category: Medical (2) Type 2 diabetes mellitus: Code(s): E11.9 - Type 2 diabetes mellitus without complications Category: Medical Plan Assessment & Plan: 1. Left hand laceration, with partial injury of the common digital nerve extending to the radial aspect of the small finger. Improvement with near normal sensation to the ulnar aspect of the ring finger today. No flexor tendon involvement ~1.5cm in length, in line with the ring finger DOI: 11/05/23 I educated him about this condition I discussed operative and non-operative treatment options. I am not recommend ing surgery, and do recommend that this be managed conservatively. He understands that he will likely continue to have numbness along the radial aspect of the small finger. He is happy with the current plan. I discussed activity modification, he is to lift nothing heavier than a cellphone for the next 3 weeks He will perform wound care and dressing changes at home He will perform gentle ROM exercises at home He was given a note for work restricting him to light duty, with a 1lb weight limit for the next 3 weeks. He will follow up in 1 week for a wound check & suture removal Scribed for Leesa Breen MD by Allan Abbasi, medical center representative, on [ ] at [ ], EST. Coding Level of Care Code Est Pt Level 3 (89034) Diagnoses Laceration of left palm S61.412A Type 2 diabetes mellitus E11.9
== END 2023-11-13 11:00 | disposition home or self-care (01) ==
PROVIDERS: PCP Internal Medicine; Visit Provider Orthopaedic Surgery
DX: S61.412A Laceration without foreign body of left hand, initial encounter (principal); E11.9 Type 2 diabetes mellitus without complications
CPT/HCPCS: 99213

== ENCOUNTER → 2023-11-13 10:13 | Outpatient (BNVA) | payer OTHER, SELFPAY | PROVIDERS: PCP Internal Medicine; Visit Provider Orthopaedic Surgery ==

== ENCOUNTER 2023-11-20 10:32 | Outpatient (AMB) | payer OTHER, SELFPAY ==
--- NOTE | 2023-11-20 10:39 | A.OFFVIS_ITS ---
Vital Signs 11/20/23 10:46 Height 5 ft 3 in Weight 256 lb BMI 45.3 Intake Visit Reasons: O/V lac. of LT hand 4th & 5th digits-follow up Intake Note: Lalo is a 43 year old male right hand dominant male presents today for a wound check and suture removal s/p left hand 4th & 5th digit laceration, DOI 11/05/23. States he noticed some bruising a couple days ago and some dryness/swelling. Patient reports that his ring finger feels better, however his pinky is still having some tingling which he was made aware that wasn't going away. Allergies No Known Allergies [No Known Allergies*] Allergy (Verified 11/20/23 10:42) HPI HPI O/V lac. of LT hand 4th & 5th digits-follow up: Details: 43 yo male returns to the office today left hand laceration which included the ulnar nerve branch. He states the symptoms have improved over the last week and continues to work light duty. [facility] Medical History Obesity Annual physical exam Type 2 diabetes mellitus Surgical History No pertinent past surgical history Family History Father Diabetes Stroke Mother Diabetes Skin cancer Maternal Grandmother No problems noted. 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 Cognitive needs: No Hearing needs: No Vision needs: No Review of Systems Const All systems reviewed & are unremarkable except as noted in HPI and below Physical Exam Vital Signs: BMI result Body Mass Index 45.3 Const General: cooperative and no acute distress Orientation/consciousness: patient oriented x3 HEENT Head: Yes normocephalic and Yes atraumatic Eyes EOM: EOMs intact bilaterally Resp Effort & Inspection: normal respiratory effort and able to speak in complete sentences Cardio Jugular venous distension: no JVD Peripheral pulses: Peripheral pulses 2+ throughout Skin General skin exam: turgor normal Rashes: no rashes Neuro General: patient oriented x3 Extrem Other: ROM: He can make a fist and extend all his digits He has some discomfort in the area of the laceration when bringing his small finger into full extension FDP & FDS tendons intact to all digits, including to the small finger. No pain with resisted flexion of the small or ring fingers. Skin: He has a sutured transverse laceration, measuring ~1.5cm in length, in line with the ring finger at the mid-palmar crease. He has some resolving palmar ecchymosis General: No Erythema or evidence of infection. Psych Appearance: grossly normal Affect: normal affect Attitude: cooperative Assessment & Plan Assessment & Plan (1) Laceration of left palm: Code(s): S61.412A - Laceration without foreign body of left hand, initial encounter Category: Medical (2) Ulnar nerve laceration: Code(s): S54.00XA - Injury of ulnar nerve at forearm level, unspecified arm, initial encounter Category: Medical Qualifiers: Encounter type: initial encounter Laterality: left Qualified Code(s): S54.02XA - Injury of ulnar nerve at forearm level, left arm, initial encounter Plan Sutures removed today Steri-Strips applied he will continue with his light duty work restrictions no heavy lifting for another 2 weeks. He will return to full duty on December 02 without restrictions and he will see us back if he develops any questions or concerns in regards to his injury such as infection or worsening symptoms. Coding Level of Care Code Est Pt Level 3 (75101) Diagnoses Laceration of left palm S61.412A Laceration of left ulnar nerve, initial encounter S54.02XA Encounter type: initial encounter Laterality: left
[2023-11-20 10:46] VITALS: BMI 45.3
== END 2023-11-20 10:48 | disposition home or self-care (01) ==
PROVIDERS: PCP Internal Medicine; Visit Provider Physician Assistant
DX: S61.412A Laceration without foreign body of left hand, initial encounter (principal); S54.02XA Injury of ulnar nerve at forearm level, left arm, initial encounter
CPT/HCPCS: 99213

== ENCOUNTER → 2023-11-20 10:32 | Outpatient (BNVA) | payer OTHER, SELFPAY | PROVIDERS: PCP Internal Medicine; Visit Provider Physician Assistant ==

== ENCOUNTER 2024-01-20 09:28 | Outpatient (REF) | payer OTHER, SELFPAY ==
[2024-01-20 13:58] LABS: MANUAL DIFF FLAG NO
[2024-01-20 14:10] LABS: Basophils Absolute Auto 0.1 X10*3/uL (0.0-0.2); Eosinophils Absolute Auto 0.1 X10*3/uL (0.0-0.4); Eosinophils Percent Auto 1.8 % (0-4); Hemoglobin 12.5 g/dl (14.0-18.0); Imm Gran Abs Auto 0.03 X10*3/uL (0.00-0.03); Imm Gran Pct Auto 0.5 % (0.0-0.4); Lymphocytes Absolute Auto 1.4 X10*3/uL (1.2-4.9); Lymphocytes Percent Auto 22.4 % (20-40); Mean Corpuscular HGB Conc 32.9 g/dl (31.0-36.0); Mean Corpuscular Hemoglobin 29.1 pg (27.0-33.0); Mean Corpuscular Volume 88.6 fL (80.0-98.0); Mean Platelet Volume 9.8 fL (9.4-12.4); Monocytes Absolute Auto 0.5 X10*3/uL (0.1-1.2); Monocytes Percent Auto 8.8 % (2-11); Neutrophils Percent Auto 65.5 % (45-73); Platelet Count 292 X10*3/uL (160-400); Red Blood Count 4.29 X10*6/uL (4.60-5.80); Red Cell Distribution Width 12.5 % (11.0-16.0)
[2024-01-20 14:19] LABS: Estimated Average Glucose 117 mg/dL; Hemoglobin A1c % 5.7 % (<6.0)
[2024-01-20 14:55] LABS: Creatinine Urine 102.09 mg/dL; Microalbum/Creatinine Ratio Ur 4.8 ug/mg cr (<30)
[2024-01-20 15:03] LABS: Alanine Aminotransferase 31 U/L (0-40); Albumin Level 4.3 g/dL (3.5-5.0); Alkaline Phosphatase 58 U/L (39-117); Anion Gap 13 (12-20); Aspartate Amino Transferase 30 U/L (5-37); Bilirubin Total 0.4 mg/dL (0.0-1.0); Blood Urea Nitrogen 13 mg/dL (9-16); Calcium 11.1 mg/dL (8.4-10.2); Carbon Dioxide 30 mmol/L (22-29); Chloride 102 mmol/L (96-108); Cholesterol 165 mg/dL (<200); Estimated Glomerular Filt Rate > 60; Glucose Fasting 100 mg/dL (60-99); HDL Cholesterol 35 mg/dL (>40); LDL Cholesterol Calculated 113 mg/dL (<100); Potassium 3.9 mmol/L (3.3-5.1); Sodium 141 mmol/L (135-145); Total Protein 7.8 g/dL (6.5-8.0); Triglycerides 87 mg/dL (<150)
== END 2024-01-20 09:29 | disposition home or self-care (01) ==
LOC: HO.HMGCLDS 09:28
PROVIDERS: PCP Internal Medicine; Visit Provider Internal Medicine
DX: Z00.00 Encounter for general adult medical examination without abnormal findings (principal); E11.9 Type 2 diabetes mellitus without complications
CPT/HCPCS: 36415; 80053; 80061; 82043; 82570; 83036; 85025

== ENCOUNTER 2024-01-24 08:07 | Outpatient (AMB) | payer OTHER, SELFPAY ==
[2024-01-24 08:14] VITALS: BP 104/70; PULSE 85; O2SAT 99; BMI 41.6
--- NOTE | 2024-01-24 08:14 | A.OFFPC_ITS ---
Vital Signs 01/24/24 08:14 Height 5 ft 3 in Weight 235 lb BMI 41.6 BP 104/70 Blood Pressure Location Rt brachial Position Sitting Pulse 85 Pulse Source Pulse Oximeter Pulse Oximetry (%) 99 Oxygen Delivery Method Room Air Intake Visit Reasons: 3 month follow up Intake Note: Pt is here today for 3 months follow up visit. Allergies No Known Allergies [No Known Allergies*] Allergy (Verified 01/24/24 08:17) Tobacco use date assessed: 01/24/24 Dental Screening Dental Screen Date: 07/23/23 HPI 3 month follow up HPI Details Pt presents for F/U DM 2, stable on meds. Patient lost 20 lb on Ozempic and has been tolerating medication well. He has been exercising and eating well-balanced diet. He complains of chronic insomnia. Patient denies depression but reports being under stress at work also feeling anxious about his health since his co-worker from sudden [place] at 52. [facility] Medical History Obesity Annual physical exam Type 2 diabetes mellitus Surgical History No pertinent past surgical history Family History Father Diabetes Stroke Mother Diabetes Skin cancer Maternal Grandmother No problems noted. 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 Noel Little, Lucy Santiago, Grzegorz Vasques and colleagues, with an educational ita from [employer] Review of Systems Const All systems reviewed & are unremarkable except as noted in HPI and below ENT Reports no additional complaints Card Reports no additional complaints Resp Reports no additional complaints GI Reports no additional complaints Reports no additional complaints Physical exam (Primary Care) Vital Signs: Last Vital Signs Pulse 85 01/24/24 08:14 BP 104/70 01/24/24 08:14 Pulse Ox 99 01/24/24 08:14 Oxygen Delivery Method Room Air 01/24/24 08:14 BMI result Body Mass Index 41.6 Tobacco/Smoking Status: Tobacco use Status Tobacco use date assessed 01/24/24 01/24/24 08:19 Patient Tobacco Use Status Never used Tobacco 01/24/24 08:19 e-Cigarette/Vaping Use Never Used 01/24/24 08:14 Thrive Assessment: Date of Thrive Assessment Date Thrive assessed 10/21/23 01/24/24 08:14 Const General: no acute distress HENMT Face and sinus: Yes normal facial exam Eyes General: appearance normal, both eyes and all related structures Neck Neck: Yes supple Resp Effort & Inspection: normal respiratory effort Auscultation: clear to auscultation bilaterally Cardio Rhythm: regular rhythm Heart sounds: S1 normal heart sound present and S2 normal heart sound present GI Inspection: Yes normal to inspection Palpation (GI): Soft to palpation Percussion: Yes normal to percussion Auscultation: normal bowel sounds Assessment and Plan Assessment & Plan (1) Type 2 diabetes mellitus: Code(s): E11.9 - Type 2 diabetes mellitus without complications Plan: A1c is down to 5.7, continue ADA diet regular exercise current medications follow-up in 4 months with a fasting labs before (2) Insomnia: Code(s): G47.00 - Insomnia, unspecified Plan: Sleep hygiene and mindfulness discussed with the patient. Orders: Orders Comprehensive [place]. Panel Fast 4 Months E11.9 - Type 2 diabetes mellitus without complications Complete Blood Count Auto Diff 4 Months E11.9 - Type 2 diabetes mellitus without complications Hemoglobin A1c 4 Months E11.9 - Type 2 diabetes mellitus without complications Microalbumin, Random (w Creat) 4 Months E11.9 - Type 2 diabetes mellitus without complications IRON PROFILE 4 Months E11.9 - Type 2 diabetes mellitus without complications Vitamin D 25-OH Total 4 Months E11.9 - Type 2 diabetes mellitus without complications Coding Level of Care Code Est Pt Level 3 (72055) Diagnoses Type 2 diabetes mellitus E11.9 Insomnia G47.00
== END 2024-01-24 09:00 | disposition home or self-care (01) ==
PROVIDERS: PCP Internal Medicine; Visit Provider Internal Medicine
DX: E11.9 Type 2 diabetes mellitus without complications (principal); G47.00 Insomnia, unspecified
CPT/HCPCS: 99213

== ENCOUNTER 2024-04-17 15:01 | Outpatient (REF) | payer OTHER, SELFPAY ==
--- NOTE | ~2024-04-17 | CT_ITS ---
EXAMINATION: CT ABDOMEN AND PELVIS WITHOUT CONTRAST CLINICAL INFORMATION: Malignant neoplasm of testis. COMPARISON: CT abdomen and pelvis 09/09/2023. TECHNIQUE: Multidetector volumetric imaging was performed from the superior aspect of the liver through the pubic symphysis. Sagittal and coronal reformatted images were obtained on the technologist's workstation. This CT examination was performed using dose optimization techniques as appropriate, variously including the following: *Automated exposure control *Adjustment of mA and/or kV according to patient size (this includes techniques or standardized protocols for targeted exams where dose is matched to indication/reason for exam; i.e. extremities or head) *Use of iterative reconstruction technique DLP: 864 mGy-cm. FINDINGS: LUNG BASES: The visualized lung bases are unremarkable. A 3 mm pulmonary nodule in the left lower lobe is unchanged (6:37 compare prior 6:13). LIVER, GALLBLADDER, AND BILIARY TREE: The liver is normal in size, shape, and attenuation. No focal hepatic lesion or biliary ductal dilatation is present. The gallbladder is unremarkable with no evidence of radiopaque gallstones, gallbladder wall thickening, or obvious pericholecystic inflammatory changes. PANCREAS: Unremarkable. SPLEEN: The spleen is enlarged at 13 cm in greatest transverse dimension. ADRENAL GLANDS: Unremarkable. KIDNEYS AND URETERS: The kidneys are normal in size, shape, and attenuation. No hydronephrosis, hydroureter, or calculi seen. No perinephric stranding. BLADDER: Unremarkable. GASTROINTESTINAL TRACT: The small and large bowel are unremarkable. The appendix is not seen but there is no evidence of appendicitis. ABDOMINAL WALL: No significant hernia is appreciated. LYMPH NODES: There is new retroperitoneal lymphadenopathy present with preaortic, precaval, aortocaval and para-aortic lymph nodes (see saved hercules images) predominantly in the perirenal regions. The nodes range in size from under a centimeter to an aortocaval node with short axis dimension in the axial plane of 1.8 cm (3:39). The largest node measures 1.6 x 2.8 x 2.4 cm in the aortocaval region (3:35 and 4:64). VASCULAR: Unremarkable. PELVIC VISCERA: Unremarkable. OSSEOUS STRUCTURES: Unremarkable. Punctate bone island left iliac bone, no bony destructive lesions. There is mild biconvex thoracolumbar scoliosis. CT/CT abdomen pelvis wo IV con IMPRESSION: 1. New retroperitoneal lymphadenopathy concerning for metastatic disease. 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 2. Other incidental findings as described above. Fleischner guidelines were followed. Electronically signed by: Ashish Reyes MD 06/17/2024 10:09 PM [facility]
== END 2024-04-17 15:02 | disposition home or self-care (01) ==
LOC: HO.CT 15:01
PROVIDERS: PCP Internal Medicine; Visit Provider Urology
DX: C62.11 Malignant neoplasm of descended right testis (principal)
CPT/HCPCS: 74176

== ENCOUNTER 2024-05-05 12:51 | Outpatient (AMB) | payer OTHER, SELFPAY ==
--- NOTE | 2024-05-05 12:53 | A.OFFVIS_ITS ---
Intake Visit Reasons: CT follow up(set) Intake Note: Patient is present for CT Follow up (04/17) Urology Med: None Antibiotic Med: None Blood Thinner: None Recent A1C: 01/20/2024: 5.7 Patient states he is here for his follow up and to discuss his past surgery. He had orchidectomy last year and states that its been a year and he is still having stabbing pain at scar site. Conditioning Yard Supervisor Required: No Nail Making Machine Setter: Nail Making Machine Setter Present Accompanied by: Spouse Allergies No Known Allergies [No Known Allergies*] Allergy (Verified 05/05/24 12:54) HPI Comments Details: Lalo is a pleasant male. He is a patient of Dr. Diamond. 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 He is seen for the following urologic conditions - right testicular seminoma pT2 - six-month follow-up labs and imaging Imaging 05/07 CT NAD May move to yearly follow-up for year 2 and 3. Will not need surveillance following your 3 Right testicular seminoma - pT2 Orchiectomy 04/06 - Subsequent 2 cycles paiute-shoshone based chemotherapy Noted on self exam middle of January 2023 Ultrasound report states suspicious for carcinoma - acentral area of large heterogeneous mass and multiple small areas of satellite nodules with increased vascularity. The largest mass measures 3.5 x 2.8 x 3.3 cm and 1.6 x 1.3 x 1.5 cm 02/03 - CT abdomen reported as normal Testicular markers 05/06 bHCG <5, AFP - 3.0 Pathology - 04/06 - T2 seminoma [facility] Medical History Obesity Annual physical exam Type 2 diabetes mellitus Surgical History No pertinent past surgical history Family History Father Diabetes Stroke Mother Diabetes Skin cancer Maternal Grandmother No problems noted. 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 Cognitive needs: No Hearing needs: No Vision needs: No Review of Systems Const Denies chills and Denies fever(s) Card Reports no additional complaints and Denies syncope Resp Denies cough GI Denies abdominal pain and Denies heartburn Reports as per HPI and Denies change in libido Neuro Denies syncope Psych Denies change in libido Endo Denies change in libido Physical Exam Const General: cooperative, healthy appearing, comfortable and no acute distress Orientation/consciousness: patient oriented x3 HEENT Face and sinus: Yes normal facial exam Mouth: moist mucous membranes Neck Neck: Yes normal visual inspection, Yes full ROM and Yes trachea midline Chest Chest palpation & inspection: normal inspection of the chest Resp Effort & Inspection: normal respiratory effort, able to speak in complete sentences and no respiratory distress GI Inspection: Yes normal to inspection Back/Spine/Pelvis Cervical Spine: normal cervical lordosis Thoracic/Lumbar Spine: thoracic and lumbar spine normal to inspection Skin General skin exam: no rashes or lesions noted Neuro General: patient oriented x3, gait normal, tone normal and moves all extremities Extrem General: Yes normal to inspection and Yes capillary refill normal Assessment & Plan Assessment & Plan (1) 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, LVI positive Code(s): C62.11 - Malignant neoplasm of descended right testis Category: Medical Plan One year follow-up CT Orders: Orders CT abdomen pelvis wo IV con 1 Year C62.11 - Malignant neoplasm of descended right testis Patient Instructions: Imaging studies, laboratory and physical exam results were discussed and reviewed in detail. No major barriers to patient understanding were identified. An opportunity to ask questions regarding the treatment plan was provided. All questions were answered. The patient expressed understanding and agreement with the above treatment plan. The patient is aware they should contact our office by phone for worsening of their current condition or the appearance of new urologic symptoms. Compliance is encouraged with any medications and followup testing that is ordered. It is a privilege to participate in the urologic care of your patient. If you have any questions or concerns regarding treatment for the above conditions, or other urologic issues, please do not hesitate to contact me. The office telephone contact is [phone]. This note is constructed using voice recognition software. While every effort has been made to ensure accuracy hot iron worker errors may have been included. Yours sincerely, Dr Claude Phillip MD, [facility] - Urology Providers of Expert, Compassionate Care for the Genitourinary System Coding Level of Care Code Est Pt Level 3 (19749) Diagnoses Seminoma of descended right testis C62.11
== END 2024-05-05 13:42 | disposition home or self-care (01) ==
PROVIDERS: PCP Internal Medicine; Visit Provider Urology
DX: C62.11 Malignant neoplasm of descended right testis (principal)
CPT/HCPCS: 99213

== ENCOUNTER → 2024-05-05 12:51 | Outpatient (BNVA) | payer OTHER, SELFPAY | PROVIDERS: PCP Internal Medicine; Visit Provider Urology ==

== ENCOUNTER 2024-05-29 09:17 | Outpatient (AMB) | payer OTHER, SELFPAY ==
--- NOTE | 2024-05-29 09:21 | MHC.PC.OV ---
Vital Signs 05/29/24 09:28 Height 5 ft 3 in Weight 240 lb BMI 42.5 BP 106/68 Blood Pressure Location Rt brachial Position Sitting Pulse 77 Pulse Source Pulse Oximeter Pulse Oximetry (%) 99 Oxygen Delivery Method Room Air Intake Visit Reasons: 4 month follow up Intake Note: Pt is here today for 4 months follow up visit. Allergies No Known Allergies [No Known Allergies*] Allergy (Verified 05/29/24 09:31) Medication List - Last Reconciled 05/29/24 by Abiola Diamond MD blood sugar diagnostic (OneTouch Ultra Test strips) tid qA blood-glucose meter (Edimer PharmaceuticalsTouch Ultra2 Meter) As directed blood-glucose sensor (Dexcom G7 Sensor device) As directed lancets (Edimer PharmaceuticalsTouch Delica Plus Lancet) Test blood sugar once a day metformin 850 mg PO BID semaglutide (Ozempic) 1 mg (0.75 mL) subcut QWEEK Tobacco use date assessed: 01/24/24 Dental Screening Dental Screen Date: 07/23/23 HPI 4 month follow up HPI Details PATIENT PRESENTS FOR THE FOLLOW-UP OF TYPE 2 DIABETES CONTROLLED ON CURRENT MEDICATIONS.. He has been exercising 5 times a week and noticed getting more hungry after increasing carbohydrates in his diet [facility] Medical History Obesity Annual physical exam Type 2 diabetes mellitus Surgical History No pertinent past surgical history Family History Father Diabetes Stroke Mother Diabetes Skin cancer Maternal Grandmother No problems noted. 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 1. Little interest or pleasure in doing things: not at all 2. Feeling down, depressed, or hopeless: not at all 3. Trouble falling or staying asleep, or sleeping too much: not at all 4. Feeling tired or having little energy: not at all 5. Poor appetite or overeating: not at all 6. Feeling bad about yourself - or that you are a failure or have let yourself or your family down: not at all 7. Trouble concentrating on things, such as reading the newspaper or watching television: not at all 8. Moving or speaking so slowly that other people could have noticed. Or the opposite - being so fidgety or restless that you have been moving around a lot more than usual: not at all 9. Thoughts that you would be better off or of hurting yourself in some way: not at all Total score: 0 Depression Screening Interpretation: Negative Depression Screening Done: Yes [id number] - PHQ-9 Billing: Yes Source: Developed by Drs. Noel Little, Lucy Santiago, Grzegorz Vasques and colleagues, with an educational ita from [employer]. Thrive Questionnaire Date Thrive assessed: 05/29/24 I am a: Patient What is your living situation today?: I have a steady place to live Within the past 12 months, did the food you bought not last and you didn't have the money to get more?: Never true Within the past 12 months, did you worry whether your food would run out before you got money to buy more?: Never true Do you have trouble paying for medicines?: No Do you have trouble getting transportation to medical appointments?: No Do you have trouble paying your heating and electricity bill?: No Do you have trouble taking care of your child, family member or friend?: No Do you have trouble with day-to-day activities such as bathing, preparing meals, shopping, managing finances, etc.?: No Are you currently unemployed and looking for a job?: No Are you interested in more education?: No Please select the resources that you would like help with: None Currently or been in a relationship where the following occur: No concerns reported THRIVE Score: 0 AUDIT C Alcohol Use Questionnaire (AUDIT-C) 1. How often do you have a drink containing alcohol?: Never 3. How often do you have six or more drinks on one occasion?: Never Total Score: 0 MARIYA-7 AMB Questionnaire MARIYA-7 Date MARIYA - 7 assessed: 05/29/24 Feeling nervous, anxious, or on edge: 0 = Not at all Not being able to stop or control worryin = Not at all Worrying too much about different things: 0 = Not at all Trouble relaxin = Not at all Being so restless that it is hard to sit still: 0 = Not at all Becoming easily annoyed or irritable: 0 = Not at all Feeling afraid as if something awful might happen: 0 = Not at all Total MARIYA-7 score (0-4 normal; 5-9 mild; 10-14 moderate; 15-21 severe): 0 Source: Developed by Drs. Noel Little, Lucy Santiago, Grzegorz Vasques and colleagues, with an educational ita from [employer]. Review of Systems Const All systems reviewed & are unremarkable except as noted in HPI and below ENT Reports no additional complaints Card Reports no additional complaints Resp Reports no additional complaints GI Reports no additional complaints Physical exam (Primary Care) Vital Signs: Last Vital Signs Pulse 77 05/29/24 09:28 BP 106/68 05/29/24 09:28 Pulse Ox 99 05/29/24 09:28 Oxygen Delivery Method Room Air 05/29/24 09:28 BMI result Body Mass Index 42.5 Tobacco/Smoking Status: Tobacco use Status Tobacco use date assessed 01/24/24 05/29/24 09:21 Patient Tobacco Use Status Never used Tobacco 05/29/24 09:21 e-Cigarette/Vaping Use Never Used 05/29/24 09:21 PHQ-9: PHQ-9 Score PHQ-9: Total score 0 05/29/24 10:09 Depression Screening Interpretation: Negative Thrive Assessment: Date of Thrive Assessment Date Thrive assessed 05/29/24 05/29/24 09:34 Currently or been in a relationship where the following occur: No concerns reported Const General: no acute distress Eyes General: appearance normal, both eyes and all related structures Resp Effort & Inspection: normal respiratory effort Auscultation: clear to auscultation bilaterally Cardio Rhythm: regular rhythm Heart sounds: S1 normal heart sound present and S2 normal heart sound present Results AMB Hemoglobin A1c AMB Hemoglobin A1c 6.2 % Last Edit by SHARON Alvarado on 05/29/24 10:09 Results Reviewed Results Reviewed: Laboratory Last Values Hgb A1c (Clinic) 6.2 % (4.0-6.0) H 05/29/24 09:55 Coding Level of Care Code Est Pt Level 3 (06703) Diagnoses Type 2 diabetes mellitus E11.9 Seminoma of descended right testis C62.11 Additional Codes PHQ-9 - 56410 - PHQ-9 Billing: Yes ([id number]) Assessment & Plan Assessment & Plan (1) Type 2 diabetes mellitus: Code(s): E11.9 - Type 2 diabetes mellitus without complications Category: Medical Plan: A1c is 6.2, continue current medications, ADA diet regular physical activity follow-up in 5 months for a physical with a fasting labs. (2) 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 Phillip annually and has CT Code(s): C62.11 - Malignant neoplasm of descended right testis Category: Medical Plan: Follow-up with urology Orders: Orders AMB Hemoglobin A1c Today Z13.9 - Encounter for screening, unspecified Lipid Panel 5 Months C62.11 - Malignant neoplasm of descended right testis, E11.9 - Type 2 diabetes mellitus without complications Microalbumin, Random (w Creat) 5 Months C62.11 - Malignant neoplasm of descended right testis, E11.9 - Type 2 diabetes mellitus without complications Hemoglobin A1c 5 Months C62.11 - Malignant neoplasm of descended right testis, E11.9 - Type 2 diabetes mellitus without complications Comprehensive [place]. Panel Fast 5 Months C62.11 - Malignant neoplasm of descended right testis, E11.9 - Type 2 diabetes mellitus without complications Complete Blood Count Auto Diff 5 Months C62.11 - Malignant neoplasm of descended right testis, E11.9 - Type 2 diabetes mellitus without complications
[2024-05-29 09:28] VITALS: BP 106/68; PULSE 77; O2SAT 99; BMI 42.5
== END 2024-05-29 10:12 | disposition home or self-care (01) ==
PROVIDERS: PCP Internal Medicine; Visit Provider Internal Medicine
DX: E11.9 Type 2 diabetes mellitus without complications (principal); C62.11 Malignant neoplasm of descended right testis; Z13.9 Encounter for screening, unspecified

== ENCOUNTER → 2024-05-29 09:17 | Outpatient (BNVA) | payer OTHER, SELFPAY | PROVIDERS: PCP Internal Medicine; Visit Provider Internal Medicine | DX: E11.9 Type 2 diabetes mellitus without complications (principal); C62.11 Malignant neoplasm of descended right testis | CPT/HCPCS: 83036; 96127 ==

== ENCOUNTER 2024-07-27 11:13 | Outpatient (AMB) | payer OTHER, SELFPAY ==
--- NOTE | 2024-07-27 12:27 | MHC.OFFWIV ---
Intake Vital Signs 07/27/24 12:28 Height 6 ft 3 in Weight 225 lb BMI 28.1 BP 122/78 Blood Pressure Location Rt brachial Position Sitting Pulse 87 Pulse Source Pulse Oximeter Temp 98.4 F Temp Source Oral Pulse Oximetry (%) 99 Oxygen Delivery Method Room Air Intake Visit Reasons: EP-fatigue, muscle ache, pain lwr rt side, fever Intake Note: Pt is here today for a walk in visit. Pt c/o fatigue R lower back pain , nausea, stomach aches, constipation. Patient Tobacco Use Status: Never used Tobacco Allergies No Known Allergies [No Known Allergies*] Allergy (Verified 07/27/24 12:33) HPI HPI Comments History of Present Illness Details History of Present Illness - The patient is a 43-year-old male presenting with constipation, stomach pain and back pain. - Symptoms initiated approximately six weeks ago, following the escalation of Ozempic dosage to 1 mg, and include severe nausea, abdominal discomfort, constipation, and alternating diarrhea. - Constipation is characterized by infrequent stool passage but with adequate gaseous passage, indicating the absence of bowel obstruction. - Accompanying symptoms include muscle aches, fatigue, and a persistent dull lower right back pain. - Symptomatic relief partially achieved with acetaminophen and NSAIDs, but not preferred due to potential long-term adverse effects. - Significant past medical history of Type 2 Diabetes Mellitus and prior diagnosis of testicular cancer in 2022. - Notable weight decline to 222 lbs from an initial 270 lbs. - Reports constant appetite fluctuation and diminished fluid intake due to persistent nausea. - Episodes of diarrhea occurring spontaneously, particularly after specific dietary intakes. Physical Exam General: Cooperative, healthy appearing, comfortable, no acute distress and well developed Orientation: Patient oriented x3 Limitations: No limitations Head: Normal to inspection Ears: Hearing grossly normal bilaterally Nose: Normal external nose present Face and sinus: Normal facial exam Eyes: Appearance normal, both eyes and all related structures Neck: Normal visual inspection and Yes full ROM Respiratory: Normal respiratory effort and able to speak in complete sentences. GI: hypoactive BS, no TTP throughout, negative melendez's : negative CVA bilaterally Skin: No rashes or lesions noted Neuro: Patient oriented x3 Extremities: Normal to inspection [facility] Medical History Obesity Annual physical exam Type 2 diabetes mellitus Surgical History No pertinent past surgical history Family History Father Diabetes Stroke Mother Diabetes Skin cancer Maternal Grandmother No problems noted. 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 Cognitive needs: No Hearing needs: No Vision needs: No Review of Systems Const All systems reviewed & are unremarkable except as noted in HPI and below Physical Exam Vital Signs: Last Vital Signs Temp 98.4 F 07/27/24 12:28 Pulse 87 07/27/24 12:28 BP 122/78 07/27/24 12:28 Pulse Ox 99 07/27/24 12:28 Oxygen Delivery Method Room Air 07/27/24 12:28 BMI result Body Mass Index 39.9 Assessment & Plan Assessment & Plan (1) Acute constipation: Code(s): K59.00 - Constipation, unspecified Plan: Plan The patient, presenting with notable gastrointestinal symptoms and back pain, requires reconsideration of Ozempic dosage due to potential medication-induced effects, including gastroparesis and constipation. These effects, exacerbated by recent dosage escalation, necessitate interim measures such as enhanced fluid consumption and OTC laxatives like Dulcolax to address constipation. Can escalate to Miralax if needed but advised to go with a small dose and slow. Advised that these side effects usually subside. It is suggested that the patient arrange a follow-up with their primary care provider to discuss dosage adjustments and evaluate ongoing suitability and effectiveness in managing Type 2 Diabetes Mellitus, particularly given the significant weight change and fluctuating appetite. Monitoring for emergent symptoms resembling gastrointestinal obstruction remains advised. Patient is passing gas and was educated that if he is unable to and remains constipated that he needs to go to the ED for evaluation of SBO. Patient was informed and verbally consented to the use of an ambient scribe for clinic note documentation during this visit. Coding Level of Care Code Est Pt Level 3 (06703) Diagnoses Acute constipation K59.00
[2024-07-27 12:28] VITALS: BP 122/78; PULSE 87; TEMP 36.9; O2SAT 99; BMI 28.1
== END 2024-07-27 13:28 | disposition home or self-care (01) ==
PROVIDERS: PCP Internal Medicine; Visit Provider Physician Assistant
DX: K59.00 Constipation, unspecified (principal)

== ENCOUNTER 2024-09-03 14:18 | Outpatient (AMB) | payer OTHER, SELFPAY ==
--- NOTE | 2024-09-03 14:45 | MHC.OFFWIV ---
Intake Vital Signs 09/03/24 14:49 Weight 206 lb BP 120/80 Blood Pressure Location Lt brachial Position Sitting Pulse 125 H Pulse Source Pulse Oximeter Temp 98.1 F Temp Source Oral Pulse Oximetry (%) 93 Oxygen Delivery Method Room Air Intake Visit Reasons: EP-rt side lower back pain Intake Note: Patient here for lower back pain that radiates down the back and legs that has been present for a couple of months. Patient Tobacco Use Status: Never used Tobacco Allergies No Known Allergies [No Known Allergies*] Allergy (Verified 09/03/24 14:50) Do you need a note to return to daycare/school/sports/work: No HPI HPI Comments History of Present Illness Details 43 y/o male patient who presents to the walk in clinic with c/o lower back pain that radiates down to his lower extremities x 2 months. Denies numbness or tingling. Pt reports Constipation - has tried taking Dulcolax with minimal relief. [facility] Medical History (Updated 09/03/24 @ 15:24 by Janee Mijares NP) Low back pain radiating to lower extremity Obesity Annual physical exam Type 2 diabetes mellitus Surgical History No pertinent past surgical history Family History Father Diabetes Stroke Mother Diabetes Skin cancer Maternal Grandmother No problems noted. 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 Cognitive needs: No Hearing needs: No Vision needs: No Review of Systems Const All systems reviewed & are unremarkable except as noted in HPI and below Physical Exam Vital Signs: Last Vital Signs Temp 98.1 F 09/03/24 14:49 Pulse 125 H 09/03/24 14:49 BP 120/80 09/03/24 14:49 Pulse Ox 93 09/03/24 14:49 Oxygen Delivery Method Room Air 09/03/24 14:49 Const General: cooperative and no acute distress Orientation/consciousness: patient oriented x3 GI Palpation (GI): Soft to palpation, not firm, Tenderness to palpation present (GI) suprapubicly, no guarding, not rigid and No hepatosplenomegaly present Auscultation: Hyperactive bowel sounds present Rectal Exam - Male: Yes deferred Back/Spine/Pelvis Back: back tenderness Thoracic/Lumbar Spine: thoraco-lumbar ROM normal, thoraco-lumbar spasm and lumbar spinal tenderness Neuro General: patient oriented x3 Results AMB Urinalysis, Automated UA Leukoctes 0 Deangelo/uL Last Edit by AliaJaz Varghese [facility] [place] on 09/03/24 15:16 UA Nitrite Negative Last Edit by AliaJaz Varghese [facility] on 09/03/24 15:16 UA Urobilinogen 1 mg/dL Last Edit by AliaJaz Varghese, [facility] [place] on 09/03/24 15:16 UA Protein 15 mg/dL Last Edit by [facility] [place] on 09/03/24 15:16 UA pH 7.5 Last Edit by AliaJaz Varghese [facility] [place] on 09/03/24 15:16 UA Blood 0 Valdez/uL Last Edit by [facility] [place] on 09/03/24 15:16 UA Specific [place] 1.010 Last Edit by AliaJaz Varghese [facility] [place] on 09/03/24 15:16 UA Ketone Negative Last Edit by AliaSteve Varghese [facility] [place] on 09/03/24 15:16 UA Bilirubin 1 mg/dL Last Edit by [facility] [place] on 09/03/24 15:16 UA Glucose 0 mg/dL Last Edit by [facility] [place] on 09/03/24 15:16 Results Reviewed Results Reviewed: Laboratory Last Values Urine pH (Auto) 7.5 09/03/24 15:16 Specific [place] (Auto) 1.010 09/03/24 15:16 Urine Protein (Auto) 15 mg/dL 09/03/24 15:16 Glucose (UA)(Auto) 0 mg/dL 09/03/24 15:16 Urine Ketones (Auto) Negative 09/03/24 15:16 Urine Blood (Auto) 0 Valdez/uL 09/03/24 15:16 Urine Nitrite (Auto) Negative 09/03/24 15:16 Urine Bilirubin (Auto) 1 mg/dL 09/03/24 15:16 Urine Urobilinogen (Auto) 1 mg/dL 09/03/24 15:16 Leukocyte Esterase (Auto) 0 Deangelo/uL 09/03/24 15:16 Assessment & Plan Assessment & Plan (1) Low back pain radiating to lower extremity: Code(s): M54.50 - Low back pain, unspecified; M79.606 - Pain in leg, unspecified Plan: Ordered PT NSAIDs and Acetaminophen for pain relief Ordered Prednisone Ice/Hot Urinalysis negative. (2) Acute constipation: Code(s): K59.00 - Constipation, unspecified Plan: Advise to increase Fiber intake Ordered SenoKot Increase water intake. Orders: Orders AMB Urinalysis Automated Today Z13.9 - Encounter for screening, unspecified PT Evaluation and Treatment Today M54.50 - Low back pain, unspecified, M79.606 - Pain in leg, unspecified Medications: New sennosides (Senokot) 17.2 mg (2 x 8.6 mg) PO DAILY 30 tabs 0RF constipation K59.00 - Constipation, unspecified prednisone 20 mg PO DAILY 10 days 10 tabs 0RF M54.50 - Low back pain, unspecified, M79.606 - Pain in leg, unspecified cyclobenzaprine 10 mg PO BEDTIME 14 tabs 0RF M54.50 - Low back pain, unspecified, M79.606 - Pain in leg, unspecified lidocaine 5% leave on most painful area for up to 12 hrs 1 patch topical DAILY 30 ea 0RF M54.50 - Low back pain, unspecified, M79.606 - Pain in leg, unspecified acetaminophen 1,000 mg (2 x 500 mg) PO Q6H PRN 60 caps 0RF pain M54.50 - Low back pain, unspecified, M79.606 - Pain in leg, unspecified Coding Level of Care Code Est Pt Level 4 (81946) Diagnoses Low back pain radiating to lower extremity M54.50; M79.606 Acute constipation K59.00 Time Spent (min) 20
[2024-09-03 14:49] VITALS: BP 120/80; PULSE 125; TEMP 36.7; O2SAT 93
== END 2024-09-03 15:30 | disposition home or self-care (01) ==
PROVIDERS: PCP Internal Medicine; Visit Provider Nurse Practitioner Family
DX: M54.50 Low back pain, unspecified (principal); M79.606 Pain in leg, unspecified; K59.00 Constipation, unspecified; Z13.9 Encounter for screening, unspecified

== ENCOUNTER → 2024-09-03 14:18 | Outpatient (BNVA) | payer OTHER, SELFPAY | PROVIDERS: PCP Internal Medicine | DX: M54.50 Low back pain, unspecified (principal); M79.606 Pain in leg, unspecified; K59.00 Constipation, unspecified | CPT/HCPCS: 81003 ==

== ENCOUNTER 2024-09-23 13:40 | Outpatient (AMB) | payer OTHER, SELFPAY ==
[2024-09-23 13:42] VITALS: BP 114/78; PULSE 112; RESP 18; O2SAT 100; BMI 24.7
--- NOTE | 2024-09-23 13:42 | A.OFFPC_ITS ---
Vital Signs 09/23/24 13:42 Height 6 ft 3 in Weight 198 lb BMI 24.7 BP 114/78 Blood Pressure Location Rt brachial Position Sitting Respiration 18 Pulse 112 H Pulse Source Pulse Oximeter Pulse Oximetry (%) 100 Oxygen Delivery Method Room Air Intake Visit Reasons: [facility] Intake Note: Pt is here today for a Hospital follow up visit. Allergies No Known Allergies [No Known Allergies*] Allergy (Verified 09/23/24 13:46) Medication List - Last Reconciled 09/23/24 by Abiola Diamond MD acetaminophen 1,000 mg (2 x 500 mg) PO Q6H PRN blood sugar diagnostic (Mens[employer]eros UrbanosTouch Ultra Test strips) tid qAC blood-glucose meter (Casetextuch Ultra2 Meter) As directed blood-glucose sensor ([employer]ed G7 Sensor device) As directed lancets (Mens[employer]eros UrbanosTouch Delica Plus Lancet) Test blood sugar once a day lidocaine 5% 1 patch topical DAILY metformin 850 mg PO BID semaglutide (Ozempic) 1 mg (0.75 mL) subcut QWEEK sennosides (Senokot) 17.2 mg (2 x 8.6 mg) PO DAILY Tobacco use date assessed: 09/23/24 Dental Screening Dental Screen Date: 09/23/24 Did you have a dental visit in the last 12 months?: Yes Did you have a dental problem in the last 6 months where you did not have access to dental care?: No Was dental information given to patient?: Patient has dentist HPI [facility] HPI Details Patient presents for the follow-up of hospitalization at [facility]. Patient presented to the ER with complain of worsening lower back pain fever dizziness lightheadedness progressive weight loss for the last [address] of the abdomen pelvis showed extensive abdominal pelvic lymphadenopathy with bilateral hydronephrosis. Patient underwent placement of bilateral ureteral stents and CT-guided biopsy. Patient is feeling better but still complains of poor appetite lower back pain when taking deep breath in. He denies constipation. Diabetes is controlled on metformin and patient has stopped Ozempic [facility] Medical History (Updated 09/23/24 @ 14:53 by Abiola Diamond MD) Low back pain radiating to lower extremity Obesity Annual physical exam Type 2 diabetes mellitus Surgical History No pertinent past surgical history Family History Father Diabetes Stroke Mother Diabetes Skin cancer Maternal Grandmother No problems noted. 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 1. Little interest or pleasure in doing things: not at all 2. Feeling down, depressed, or hopeless: not at all 3. Trouble falling or staying asleep, or sleeping too much: not at all 4. Feeling tired or having little energy: not at all 5. Poor appetite or overeating: not at all 6. Feeling bad about yourself - or that you are a failure or have let yourself or your family down: not at all 7. Trouble concentrating on things, such as reading the newspaper or watching television: not at all 8. Moving or speaking so slowly that other people could have noticed. Or the opposite - being so fidgety or restless that you have been moving around a lot more than usual: not at all 9. Thoughts that you would be better off or of hurting yourself in some way: not at all Total score: 0 Depression Screening Interpretation: Negative Depression Screening Done: Yes 25098 - PHQ-9 Billing: Yes Source: Developed by Drs. Noel Little, Lucy Santiago, Grzegorz Vasques and colleagues, with an educational ita from [employer]. Thrive Questionnaire Date Thrive assessed: 09/23/24 I am a: Patient What is your living situation today?: I have a steady place to live Within the past 12 months, did the food you bought not last and you didn't have the money to get more?: Never true Within the past 12 months, did you worry whether your food would run out before you got money to buy more?: Never true Do you have trouble paying for medicines?: No Do you have trouble getting transportation to medical appointments?: No Do you have trouble paying your heating and electricity bill?: No Do you have trouble taking care of your child, family member or friend?: No Do you have trouble with day-to-day activities such as bathing, preparing meals, shopping, managing finances, etc.?: No Are you currently unemployed and looking for a job?: No Are you interested in more education?: No Please select the resources that you would like help with: None Currently or been in a relationship where the following occur: No concerns reported THRIVE Score: 0 AUDIT C Alcohol Use Questionnaire (AUDIT-C) 1. How often do you have a drink containing alcohol?: Never 3. How often do you have six or more drinks on one occasion?: Never Total Score: 0 MARIYA-7 AMB Questionnaire MARIYA-7 Date MARIYA - 7 assessed: 09/23/24 Feeling nervous, anxious, or on edge: 0 = Not at all Not being able to stop or control worryin = Not at all Worrying too much about different things: 0 = Not at all Trouble relaxin = Not at all Being so restless that it is hard to sit still: 0 = Not at all Becoming easily annoyed or irritable: 0 = Not at all Feeling afraid as if something awful might happen: 0 = Not at all Total MARIYA-7 score (0-4 normal; 5-9 mild; 10-14 moderate; 15-21 severe): 0 Source: Developed by Drs. Noel Little, Lucy Santiago, Grzegorz Vasques and colleagues, with an educational ita from [employer]. MARIYA-7 Assessment Billing MARIYA-7 Assessment Tool: MARIYA-7 Assessment 99959 Review of Systems Const All systems reviewed & are unremarkable except as noted in HPI and below ENT Reports no additional complaints Card Reports no additional complaints Resp Reports no additional complaints GI Reports no additional complaints Physical exam (Primary Care) Vital Signs: Last Vital Signs Pulse 112 H 09/23/24 13:42 Resp 18 09/23/24 13:42 BP 114/78 09/23/24 13:42 Pulse Ox 100 09/23/24 13:42 Oxygen Delivery Method Room Air 09/23/24 13:42 BMI result Body Mass Index 24.7 Tobacco/Smoking Status: Tobacco use Status Tobacco use date assessed 09/23/24 09/23/24 13:47 Patient Tobacco Use Status Never used Tobacco 09/23/24 13:47 e-Cigarette/Vaping Use Never Used 09/23/24 13:42 PHQ-9: PHQ-9 Score PHQ-9: Total score 0 09/23/24 13:47 Depression Screening Interpretation: Negative Thrive Assessment: Date of Thrive Assessment Date Thrive assessed 09/23/24 09/23/24 13:47 Currently or been in a relationship where the following occur: No concerns reported Const General: no acute distress and ill appearing HENMT Head: Yes normal to inspection Neck Neck: Yes supple Resp Effort & Inspection: normal respiratory effort Auscultation: clear to auscultation bilaterally Cardio Rhythm: regular rhythm Heart sounds: S1 normal heart sound present and S2 normal heart sound present Coding Level of Care Code Est Pt Level 4 (32404) Diagnoses Pelvic lymphadenopathy R59.0 Hydronephrosis of left kidney N13.30 Hydronephrosis of right kidney N13.30 Seminoma of descended right testis 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.11 Type 2 diabetes mellitus E11.9 Additional Codes MARIYA-7 Assessment Billing - MARIYA-7 Assessment Tool: MARIYA-7 Assessment 17889 ([id number]) PHQ-9 - 83634 - PHQ-9 Billing: Yes ([id number]) Assessment & Plan Assessment & Plan (1) Pelvic lymphadenopathy: Comment: dxd 09/19/2024 at [facility], status post IR biopsy Code(s): R59.0 - Localized enlarged lymph nodes Category: Medical Plan: Follow-up with [facility] Oncology (2) Hydronephrosis of left kidney: Code(s): N13.30 - Unspecified hydronephrosis Category: Medical Plan: Follow-up with Urology (3) Hydronephrosis of right kidney: Code(s): N13.30 - Unspecified hydronephrosis Category: Medical Plan: Follow-up with urology (4) 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 Phillip annually and has CT Code(s): C62.11 - Malignant neoplasm of descended right testis Category: Medical Plan: Follow-up with urology (5) Type 2 diabetes mellitus: Code(s): E11.9 - Type 2 diabetes mellitus without complications Category: Medical Plan: Continue metformin and monitor blood glucose Medications: Discontinued semaglutide (Ozempic) Discontinued Reason: Doctor's Order 1 mg (0.75 mL) subcut QWEEK 9 mL 1RF
--- OUTSIDE RECORDS SUMMARY | 2024-09-23 16:07 | XMS_ITS | Continuity of Care Document ---
Author Organization [facility] Address [address] [place] [id number] Care Team Providers Care Historical Manuscripts Curator Name Role Phone Lobo SAINI, Abiola Primary Care Physician [phone] Encounter [facility] [place] Date(s): 09/16/24 - 09/19/[address] [id number] Discharge Disposition: A-D/C Home Attending Physician: Alexei SAINI, Mabel Admitting Physician: Gordy Romano DO Referring Physician: Not on Staff, Referring MD Encounter Type: Disch IP Allergies, Adverse Reactions, Alerts No Known Medication Allergies Medications acetaminophen 325 mg oral tablet 650 mg, By Mouth, Every 4 hours, PRN, for 10 days, # 50 tablet, Refills 0, Tot. Refills 0, Acute 09/29/24 2:13:00 PM EDT, Pain , Mild, 09/19/24 2:13:00 PM EST, [facility], Partial fill upon patient request if the prescription is for a schedule II opioid drug., 191, cm, 09/18/24 15:12:00 EST, Height, 90, kg, 09/16/24 14:18:00 EST, Dry Weight Start Date: 09/19/24 Stop Date: 09/29/24 Status: Ordered Quantity: 50.0 Unit: tablet Repeat number: 1 bisacodyl 10 mg rectal suppository 1 supp = 10 mg, Rectally, Daily, PRN for constipation, for 5 days, # 5 supp, 0 Refills, Acute 09/24/24 2:17:00 PM EDT, 09/19/24 2:17:00 PM EST, Suppository, [facility], Partial fill upon patient request if the prescription is for a schedule II opioid drug., 191, cm, 09/18/24 15:12:00 EST, Height, 90, kg, 09/16/24 14:18:00 EST, Dry Weight Start Date: 09/19/24 Stop Date: 09/24/24 Status: Ordered Quantity: 5.0 Unit: supp Repeat number: 1 metFORMIN 850 mg oral tablet 1 tablet = 850 mg, By Mouth, 2 times a day, Maintenance, 09/17/24 10:01:00 AM EST, Tablet, Partial fill upon patient request if the prescription is for a schedule II opioid drug. Start Date: 09/17/24 Status: Ordered Repeat number: 1 Ozempic (1 mg dose) 4 mg/3 mL subcutaneous solution = 1 mg, Subcutaneous Injection, Every week, Maintenance, 09/17/24 10:02:00 AM EST, Solution, Partial fill upon patient request if the prescription is for a schedule II opioid drug. Start Date: 09/17/24 Status: Ordered Repeat number: 1 Results Radiology Reports * Exam Date Time Procedure Performing Provider Status 09/18/24 1:51 PM IR End of Case Report Auth (Verified) IR End of Case Report * Exam Date Time Procedure Performing Provider Status 09/18/24 1:[address]/ US Image Guide Biopsy Nathalia Gonsalez; Auth (Verified) Notes: (CT/ US Image Guide Biopsy) Reason For Exam: Biopsy of lymph node CT/ US Image Guide Biopsy Patient: CHARO ESTRADA Study Date: 09/18/2024 Performing: Adelina Montoya MD Referring: : 1980 Age: 43 Gender: MALE PROCEDURE: CT-guided biopsy of retroperitoneal lymphadenopathy. 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 CT abdomen pelvis from 09/16/2024 demonstrates extensive retroperitoneal lymphadenopathy, among other findings. He presents to interventional radiology for CT-guided biopsy of retroperitoneal lymphadenopathy. VICE PRESIDENT INTEGRATED(S): Adelina Montoya MD ANESTHESIA: Lidocaine was administered for local anesthesia. TECHNIQUE: The procedure, risks, and alternatives were discussed with the patient and all questions were answered. Written informed consent obtained. Accompanying paperwork was verified for accuracy. Directed history and physical exam performed prior to the procedure. Medication reconciliation performed by nursing personnel. The patient was brought to the procedure suite and positioned prone on the table. A critical pause was performed with assisting personnel just prior to the procedure with the patient's identity confirmed using 2 identifiers and confirming procedure site and side. Pre procedure limited CT of the abdomen was performed which demonstrates retroperitoneal lymphadenopathy, similar to prior exam. An appropriate site was selected and marked. The skin was draped and prepped in usual sterile fashion. Procedure was performed using a cap, sterile gown, sterile gloves, a large sterile sheet, hand hygiene and 2% chlorhexidine for cutaneous antisepsis. 1% lidocaine was administered for local anesthesia. Under intermittent CT fluoroscopy guidance, a 17 gauge introducer needle was advanced into enlarged left retroperitoneal lymph node. The inner stylette was removed and coaxially, an 18 gauge biopsy needle was advanced into the enlarged left retroperitoneal lymph node. Next, five core biopsy samples were obtained and submitted to pathology. Subsequently, a 20-gauge Ronaldo biopsy needle was advanced coaxially through the introducer needle and 2 FNA samples were obtained and submitted to cytology. All needles were removed and hemostasis was achieved. A sterile dressing was applied. Post procedure limited CT images were obtained which demonstrate postbiopsy changes without evidence of hematoma. The estimated blood loss was minimal. The patient tolerated the procedure well without immediate post procedure complications. PLAN: Routine post procedure monitoring. IMPRESSION: CT-guided biopsy of enlarged left retroperitoneal lymph node. Agent Dose Route Time By Versed 1 mg IV 13:46:30 KM Signed By Adelina Montoya MD On 09/18/2024 7:57:18 PM Adelina Montoya MD SUPPLIES : Anametrix Biopsy tray Argon DAVID 20 X 20 [facility] 18 X 20 Argon DAVID 20 X 20 Dictated By: Adelina Montoya MD Dictated Date/Time: 09/18/24 1:51 pm Reviewed By: Adelina Montoya MD Signed By: Adelina Montoya MD Signed Date/Time: 09/18/24 1:51 pm Transcribed By: AUGUSTO Transcribed Date/Time: 09/18/24 1:51 pm * Exam Date Time Procedure Performing Provider Status 09/18/24 10:43 AM US Scrotum and Contents Svetlana Avalos; Auth (Verified) Notes: (US Scrotum and Contents) Reason For Exam: h/o testicular cancer , s/p rt orchidectomy;Other: RESULT: US Scrotum and Contents US Scrotum and Contents Reason: h o testicular cancer , s p rt orchidectomy COMPARISON: CT abdomen and pelvis 09/16/2024 TECHNIQUE: High-resolution sonography with grayscale and color Doppler analysis. FINDINGS: RIGHT: Status post orchiectomy. LEFT: Left testicle size: 5.4 x 2.5 x 3.5 cm (25.2 cc). Normal left testicle size, contour and echotexture without focal lesions. Normal color Doppler appearance. The epididymis is unremarkable. No significant hydrocele or varicocele. IMPRESSION: Normal left testis. Status post right orchiectomy. WSN: [id number] Ordering Physician: Ruma Arriaga Dictated By: Boone Julian MD Dictated Date/Time: 09/18/24 11:00 a Reviewed By: Boone Julian MD Signed By: Boone Julian MD Signed Date/Time: 09/18/24 11:00 am Transcribed By: MASHA Transcribed Date/Time: 09/18/24 10:57 am * Exam Date Time Procedure Performing Provider Status 09/17/24 2:59 PM IR End of Case Report Auth (Verified) IR End of Case Report * Exam Date Time Procedure Performing Provider Status 09/17/24 2:59 PM IR Nephrostomy, Placement Auth (Verified) Notes: (IR Nephrostomy, Placement) Reason For Exam: Hydronephrosis, Urology recommended bilateral PCN more beneficial than stenting;Other: IR Nephrostomy, Placement Patient: CHARO ESTRADA Study Date: 09/17/2024 Performing: Jose D Emery MD Referring: : 1980 Age: 43 Gender: MALE Pre-procedure diagnosis and Indication: 43-year-old male with 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 Patient was evaluated by urology and plan is for him to have IR guided PCN's to relieve hydronephrosis. Bilateral hydronephrosis due to distal ureteric obstruction. Requires nephrostomy. Exam: Prior to the procedure, the patient was seen and the nature of the procedure explained along with its attendant risks and benefits to the patient . Informed consent was obtained from, the patient . The patient underwent a pre-anesthesia assessment. On completion of this it was determined the patient is suitable for moderate sedation.. The patient arrived in IR room 1 for a nephrostomy insertion PROCEDURE: The patient was positioned prone and secured with arm boards. The access site was evaluated with ultrasound and images archived. The site was prepped with chloraprep and draped in the usual sterile fashion. Patient received moderate sedation administered under my direct supervision.. Local anesthetic was given and the left kidney, right kidney was identified using ultrasound. Access to the left kidney, right kidney was achieved using a KARON-NV Introducer kit, a KARON-NV Introducer kit contrast injected to check placement of new tube and a into the tract access dilated and a 8.5 FR APDL.was inserted. contrast injected to check placement of new tube and the tube was secured using 0 prolene suture, 0 prolene suture. The 8.5 FR APDL was connected to a drainage bag. The sterile field was maintained throughout the procedure and patient tolerated the procedure well with no complications of the procedure estimated blood loss was minimal Specimens/samples: no specimens or samples were sent for this procedure Patient transferred to[address] Post procedure instructions sent in envelope with the patient Impression: Satisfactory ultrasound and fluoroscopically guided placement of bilateral nephrostomy tubes patient tolerated the procedure well with no complications of the procedure Lateral hydronephrosis with distal ureteric obstruction. Uncomplicated bilateral nephrostomy tube placement to external gravity bag drainage. Fluoroscopy time and dose Total Fluoro Time: 4.6 mins Total dose 78 mGy Total DAP 554.4 - ?Gy/m2 Contrast used Contrast used: IsoVue_300 35 ml's Local Anesthetic Lidocaine 1% w/ 4.2% sodium bicarbonate 10 ml's SQ Lidocaine 1% w/ 4.2% sodium bicarbonate 10 ml's SQ Lidocaine 1% w/ 4.2% sodium bicarbonate 4 ml's SQ Moderate sedation was provided From 15:15:00 to 16:06:00 Moderate Sedation Agent Dose Route Time By Fentanyl 50 mcg IV 15:15:54 LD Versed 1 mg IV 15:15:56 LD Fentanyl 50 mcg IV 15:23:52 LD Versed 1 mg IV 15:23:55 LD Fentanyl 50 mcg IV 15:35:36 LD Versed 1 mg IV 15:35:39 LD Fentanyl 50 mcg IV 16:00:22 LD Versed 1 mg IV 16:00:25 LD Signed By Jose D Emery MD On 09/17/2024 4:38:51 PM Jose D Emery MD Dictated By: Jose D Emery MD Dictated Date/Time: 09/17/24 2:59 pm Reviewed By: Jose D Emery MD Signed By: Jose D Emery MD Signed Date/Time: 09/17/24 2:59 pm Transcribed By: Nasrin Transcribed Date/Time: 09/17/24 2:59 pm * Exam Date Time Procedure Performing Provider Status 09/17/24 12:48 PM MRI Brain W+W/O Contrast Yomaira Sims; Auth (Verified) Notes: (MRI Brain W+W/O Contrast) Reason For Exam: dizziness, metastasis of testicular cancer;Other: RESULT: MRI Brain W+W/O Contrast MRI Brain W+W/O Contrast INDICATION / CLINICAL QUESTION: Reason: Other:; dizziness, metastasis of testicular cancer; Clinical Question(s): Tumor Secondary; Order Comment: Please see Reference Text for complete list of contraindications Tumor Secondary TECHNIQUE: MRI of the brain was performed with and without contrast utilizing sagittal and axial T1, axial T2, axial FLAIR, axial SWAN, and axial DWI sequences, and post-contrast 3D T1 DELGADO with multiplanar reformats. 19 mL of Dotarem was administered intravenously. COMPARISON: No prior studies are available for comparison at the time of interpretation. FINDINGS: BRAIN and EXTRA-AXIAL SPACES: The major dural venous sinuses are patent, and there is no abnormal intracranial enhancement. The flow voids through the [place] are maintained, and there is norestricted diffusion or abnormal susceptibility artifact. A few scattered small thyroid foci are present within the subcortical and deep cerebral white matter. The ventricles are unremarkable. No mass effect or extra-axial fluid collection. The cervicomedullary junction is unremarkable. EXTRACRANIAL SOFT TISSUES: The visualized extracranial soft tissues and orbital structures are unremarkable. BONES: Marrow signal is unremarkable. IMPRESSION: 1. No abnormal intracranial enhancement to indicate metastatic disease. 2. A few scattered small FLAIR bright foci within the supratentorial white matter are nonspecific, but could represent the sequela of an inflammatory process. Multiple white matter lesions have also been reported in patients with migraine headache. WSN: [id number] Ordering Physician: Ruma Arriaga Dictated By: Ivan Ding MD Dictated Date/Time: 09/17/24 1:18 pm Reviewed By: Ivan Ding MD Signed By: Ivan Ding MD Signed Date/Time: 09/17/24 1:18 pm Transcribed By: MASHA Transcribed Date/Time: 09/17/24 1:11 pm * Exam Date Time Procedure Performing Provider Status 09/16/24 7:59 PM MRI Lumbar Spine W+W/O Contrast Salma Chapman; Luigi (Verified) Notes: (MRI Lumbar Spine W+W/O Contrast) Reason For Exam: extensive retroperitoneal lymphadenopathy, back pain,;Back Pain RESULT: MRI Lumbar Spine W+W/O Contrast MRI Lumbar Spine W+W/O Contrast INDICATION: Reason: Back Pain; extensive retroperitoneal lymphadenopathy, back pain,; Clinical Question(s): Neoplasm Metastatic; Order Comment: Please see Reference Text for complete list of contraindications Neoplasm Metastatic TECHNIQUE: MRI of the lumbar spine was performed with and without intravenous contrast utilizing sagittal T1, sagittal T2, sagittal STIR, axial T1, and axial T2-weighted sequences, and post-contrast sagittal T1 and axial T1-weighted sequences. 18 mL of Prohance was administered intravenously. COMPARISON: CT of the abdomen and pelvis and lumbar spine 09/16/2024. FINDINGS: LOCALIZER: No additional findings on limited localizer images. NUMBERING: Numbering is based on large [id number] images of the entire spine. There is a normal complement of 7 cervical, 12 thoracic, and 5 lumbar vertebral bodies. ALIGNMENT, VERTEBRAE, MARROW, AND DISCS: Alignment is normal. Vertebral body heights are preserved.There is no significant marrow signal abnormality. There is disc desiccation, loss of intervertebral disc height, and a posterior annular fissure at L5-S1. Otherwise, the intervertebral discs are maintained. CONUS: The conus is normal in signal and contour, with normal level of termination at L1-L2. There is no abnormal enhancement. PARASPINAL TISSUES: There is a partially imaged extensive bulky retroperitoneal lymphadenopathy. There is partially imaged mild bilateral hydronephrosis. FINDINGS BY LEVEL: There is a disc bulge with small central protrusion at L5-S1, mildly crowding the traversing left S1 nerve roots in the subarticular recess. However, there is no significant canal or foraminal stenosis at this level and no significant central stenosis or neural foraminal narrowing is seen at any other level in the lumbar spine. IMPRESSION: No evidence of lumbar spine metastasis. Partially imaged bulky retroperitoneal lymphadenopathy with bilateral hydronephrosis, which is morecompletely assessed on the CT of the abdomen and pelvis. Disc protrusion at L5-S1 mildly crowds the traversing left S1 nerve roots. WSN: [id number] Ordering Physician: Jaimie Stroud Dictated By: Letty Montesinos MD Dictated Date/Time: 09/17/24 8:25 am Reviewed By: Letty Montesinos MD Signed By: Letty Montesinos MD Signed Date/Time: 09/17/24 8:25 am Transcribed By: MASHA Transcribed Date/Time: 09/17/24 8:11 am * Exam Date Time Procedure Performing Provider Status 09/16/24 10:[address] Abd/Pelvis W/ IV Contrast Only Chantale Ortiz; Luigi (Verified) Notes: (CT Abd/Pelvis W/ IV Contrast Only) Reason For Exam: history of testicular cancer, weight loss, fevers, R flank pain;Fever RESULT: CT Abd/Pelvis W/ IV Contrast Only PROCEDURE: CT Angio Chest, CT Lumbar Spine W/ Contrast, CT Abd/Pelvis W/ IV Contrast Only CLINICAL INDICATION: Chest pain. Dizziness. Fever. Tachycardia. Near syncope. Dizziness. TECHNIQUE: During uneventful administration intravenous contrast, thin section axial images were obtained of the chest in arterial phase. Multiplanar reformats were computed. 100 cc of Isovue 300 was administered intravenously. 3D and MIP reconstructions were performed. Spiral CT through the abdomen and pelvis and lumbar spine with IV contrast formatted in 3 planes. The study was performed without oral contrast. Weight-based protocol using automatic tube modulation was used to optimize exposure parameters. RADIATION DOSE PARAMETERS: CTDIvol Body: 13.40 mGy, DLP Body: 1716 mGy*cm. COMPARISON: No prior examination. FINDINGS: CTA: Pulmonary arteries: No pulmonary embolism to the subsegmental level.. Thoracic aorta: No thoracic aortic aneurysm or dissection. OTHER FINDINGS: TRACHEA AND MAINSTEM BRONCHI: Patent without evidence of tracheal or endobronchial lesion. LUNGS AND PLEURA: The lungs are clear. No pleural effusion. No pneumothorax. MEDIASTINUM AND JORDAN: The heart is of normal size. No pericardial effusion.. There is no mediastinal or hilar adenopathy.. There is no esophageal abnormality. BONES OF THE CHEST: There is no thoracic spine compression fracture. No fracture ribs or sternum.. ABDOMEN AND PELVIS Diaphragm: Unremarkable. Liver: No significant focal abnormality. Portal venous system: No thrombosis involving the portal, splenic or superior mesenteric veins. Gallbladder: Mildly distended. Otherwise normal including no calcified stones.. Bile ducts: No biliary dilatation. Spleen: Normal size. No focal abnormality. Pancreas: Normal. Adrenal Glands: Normal. Kidneys and Ureters: Right Kidney: Normal size. No mass, stone, or cyst. Mild hydronephrosis and uppermost ureter. No obstructing stone.. Generalized delay in enhancement of the right kidney relative to the left. This finding in the absence of renal vein thrombosis could reflect either a higher degree of obstruction of the right kidneyor compromise of the right renal artery. Left Kidney: Normal size. No mass, stone, or cyst. Mild hydronephrosis. No obstructing stone.. Bladder: Normal. Stomach, Small bowel and Large Bowel: Stomach: Normal. Small Bowel: No small bowel dilatation or gross inflammatory change. Large Bowel: No large bowel dilatation or gross inflammatory change. The Appendix is not identified. Reproductive/Pelvic organs: No pelvic mass or fluid collection other than the adenopathy described separately. Peritoneum, retroperitoneum, omentum and mesentery: There is no free air. . There is no ascites. Lymph nodes: There is bulky adenopathy. This includes the periaortic region where some of the lymphnodes have low-density centers suggesting necrosis. Adenopathy extends in the right inguinal region and right pelvic sidewall. The adenopathy encases both renal arteries. Both renal veins are patent. Aorta and iliac vessels: No evidence of abdominal aortic or iliac artery aneurysm Despite the gross adenopathy, inferior vena cava and iliac veins are patent. Abdominal wall: No abdominal wall hernia Bones of the abdomen and pelvis: No fracture or bony pelvis or proximal femurs. Mild osteoarthritis right hip. Sacroiliac joints normal. Lumbar spine: No fracture or focal lesion. No spondylolysis or spondylolisthesis. Mild degenerative changes. IMPRESSION: CTA 1. No pulmonary embolism. 2. No thoracic aortic aneurysm or dissection. CHEST 1. No acute pulmonary, pleural, or mediastinal abnormality. 2. No fracture. ABDOMEN AND PELVIS: 1. Bulky abdominal pelvic adenopathy with some necrosis. It is presumed to be neoplastic in nature.. 2. No metastasis or primary tumor seen in the major organs of the abdomen and pelvis. 3. No bony metastasis. 4. There is bilateral hydronephrosis presumably due to the adenopathy obstructing both ureters. In addition there is generalized delay in enhancement of the right kidney compared to the left. This differential enhancement could be explained by either a greater degree of obstruction on the rightside, or some compromise of the right renal artery which is surrounded by tumor. LUMBAR SPINE: 1. No fracture. 2. Normal alignment. 3. Mild degenerative change. WSN: [id number] Ordering Physician: Jaimie Stroud Dictated By: Federico Rocha MD Dictated Date/Time: 09/16/24 10:46 a Reviewed By: Federico Rocha MD Signed By: Federico Rocha MD Signed Date/Time: 09/16/24 10:46 am Transcribed By: MASHA Transcribed Date/Time: 09/16/24 10:06 am * Exam Date Time Procedure Performing Provider Status 09/16/24 10:[address] Lumbar Spine W/ Contrast Chantale Ortiz; Auth (Verified) Notes: (CT Lumbar Spine W/ Contrast) Reason For Exam: fever, low back pain, weight loss, history of testicular cancer;Fever RESULT: CT Lumbar Spine W/ Contrast PROCEDURE: CT Angio Chest, CT Lumbar Spine W/ Contrast, CT Abd/Pelvis W/ IV Contrast Only CLINICAL INDICATION: Chest pain. Dizziness. Fever. Tachycardia. Near syncope. Dizziness. TECHNIQUE: During uneventful administration intravenous contrast, thin section axial images were obtained of the chest in arterial phase. Multiplanar reformats were computed. 100 cc of Isovue 300 was administered intravenously. 3D and MIP reconstructions were performed. Spiral CT through the abdomen and pelvis and lumbar spine with IV contrast formatted in 3 planes. The study was performed without oral contrast. Weight-based protocol using automatic tube modulation was used to optimize exposure parameters. RADIATION DOSE PARAMETERS: CTDIvol Body: 13.40 mGy, DLP Body: 1716 mGy*cm. COMPARISON: No prior examination. FINDINGS: CTA: Pulmonary arteries: No pulmonary embolism to the subsegmental level.. Thoracic aorta: No thoracic aortic aneurysm or dissection. OTHER FINDINGS: TRACHEA AND MAINSTEM BRONCHI: Patent without evidence of tracheal or endobronchial lesion. LUNGS AND PLEURA: The lungs are clear. No pleural effusion. No pneumothorax. MEDIASTINUM AND JORDAN: The heart is of normal size. No pericardial effusion.. There is no mediastinal or hilar adenopathy.. There is no esophageal abnormality. BONES OF THE CHEST: There is no thoracic spine compression fracture. No fracture ribs or sternum.. ABDOMEN AND PELVIS Diaphragm: Unremarkable. Liver: No significant focal abnormality. Portal venous system: No thrombosis involving the portal, splenic or superior mesenteric veins. Gallbladder: Mildly distended. Otherwise normal including no calcified stones.. Bile ducts: No biliary dilatation. Spleen: Normal size. No focal abnormality. Pancreas: Normal. Adrenal Glands: Normal. Kidneys and Ureters: Right Kidney: Normal size. No mass, stone, or cyst. Mild hydronephrosis and uppermost ureter. No obstructing stone.. Generalized delay in enhancement of the right kidney relative to the left. This finding in the absence of renal vein thrombosis could reflect either a higher degree of obstruction of the right kidneyor compromise of the right renal artery. Left Kidney: Normal size. No mass, stone, or cyst. Mild hydronephrosis. No obstructing stone.. Bladder: Normal. Stomach, Small bowel and Large Bowel: Stomach: Normal. Small Bowel: No small bowel dilatation or gross inflammatory change. Large Bowel: No large bowel dilatation or gross inflammatory change. The Appendix is not identified. Reproductive/Pelvic organs: No pelvic mass or fluid collection other than the adenopathy described separately. Peritoneum, retroperitoneum, omentum and mesentery: There is no free air. . There is no ascites. Lymph nodes: There is bulky adenopathy. This includes the periaortic region where some of the lymphnodes have low-density centers suggesting necrosis. Adenopathy extends in the right inguinal region and right pelvic sidewall. The adenopathy encases both renal arteries. Both renal veins are patent. Aorta and iliac vessels: No evidence of abdominal aortic or iliac artery aneurysm Despite the gross adenopathy, inferior vena cava and iliac veins are patent. Abdominal wall: No abdominal wall hernia Bones of the abdomen and pelvis: No fracture or bony pelvis or proximal femurs. Mild osteoarthritis right hip. Sacroiliac joints normal. Lumbar spine: No fracture or focal lesion. No spondylolysis or spondylolisthesis. Mild degenerative changes. IMPRESSION: CTA 1. No pulmonary embolism. 2. No thoracic aortic aneurysm or dissection. CHEST 1. No acute pulmonary, pleural, or mediastinal abnormality. 2. No fracture. ABDOMEN AND PELVIS: 1. Bulky abdominal pelvic adenopathy with some necrosis. It is presumed to be neoplastic in nature.. 2. No metastasis or primary tumor seen in the major organs of the abdomen and pelvis. 3. No bony metastasis. 4. There is bilateral hydronephrosis presumably due to the adenopathy obstructing both ureters. In addition there is generalized delay in enhancement of the right kidney compared to the left. This differential enhancement could be explained by either a greater degree of obstruction on the rightside, or some compromise of the right renal artery which is surrounded by tumor. LUMBAR SPINE: 1. No fracture. 2. Normal alignment. 3. Mild degenerative change. WSN: [id number] Ordering Physician: Jaimie Stroud Dictated By: Federico Rocha MD Dictated Date/Time: 09/16/24 10:46 a Reviewed By: Federico Rocha MD Signed By: Federico Rocha MD Signed Date/Time: 09/16/24 10:46 am Transcribed By: MASHA Transcribed Date/Time: 09/16/24 10:06 am * Exam Date Time Procedure Performing Provider Status 09/16/24 10:[address] Angio Chest Chantale Oritz; Au th (Verified) Notes: (CT Angio Chest) Reason For Exam: tachycardia, near syncope, concern for malignancy on history;Other: RESULT: CT Angio Chest PROCEDURE: CT Angio Chest, CT Lumbar Spine W/ Contrast, CT Abd/Pelvis W/ IV Contrast Only CLINICAL INDICATION: Chest pain. Dizziness. Fever. Tachycardia. Near syncope. Dizziness. TECHNIQUE: During uneventful administration intravenous contrast, thin section axial images were obtained of the chest in arterial phase. Multiplanar reformats were computed. 100 cc of Isovue 300 was administered intravenously. 3D and MIP reconstructions were performed. Spiral CT through the abdomen and pelvis and lumbar spine with IV contrast formatted in 3 planes. The study was performed without oral contrast. Weight-based protocol using automatic tube modulation was used to optimize exposure parameters. RADIATION DOSE PARAMETERS: CTDIvol Body: 13.40 mGy, DLP Body: 1716 mGy*cm. COMPARISON: No prior examination. FINDINGS: CTA: Pulmonary arteries: No pulmonary embolism to the subsegmental level.. Thoracic aorta: No thoracic aortic aneurysm or dissection. OTHER FINDINGS: TRACHEA AND MAINSTEM BRONCHI: Patent without evidence of tracheal or endobronchial lesion. LUNGS AND PLEURA: The lungs are clear. No pleural effusion. No pneumothorax. MEDIASTINUM AND JORDAN: The heart is of normal size. No pericardial effusion.. There is no mediastinal or hilar adenopathy.. There is no esophageal abnormality. BONES OF THE CHEST: There is no thoracic spine compression fracture. No fracture ribs or sternum.. ABDOMEN AND PELVIS Diaphragm: Unremarkable. Liver: No significant focal abnormality. Portal venous system: No thrombosis involving the portal, splenic or superior mesenteric veins. Gallbladder: Mildly distended. Otherwise normal including no calcified stones.. Bile ducts: No biliary dilatation. Spleen: Normal size. No focal abnormality. Pancreas: Normal. Adrenal Glands: Normal. Kidneys and Ureters: Right Kidney: Normal size. No mass, stone, or cyst. Mild hydronephrosis and uppermost ureter. No obstructing stone.. Generalized delay in enhancement of the right kidney relative to the left. This finding in the absence of renal vein thrombosis could reflect either a higher degree of obstruction of the right kidneyor compromise of the right renal artery. Left Kidney: Normal size. No mass, stone, or cyst. Mild hydronephrosis. No obstructing stone.. Bladder: Normal. Stomach, Small bowel and Large Bowel: Stomach: Normal. Small Bowel: No small bowel dilatation or gross inflammatory change. Large Bowel: No large bowel dilatation or gross inflammatory change. The Appendix is not identified. Reproductive/Pelvic organs: No pelvic mass or fluid collection other than the adenopathy described separately. Peritoneum, retroperitoneum, omentum and mesentery: There is no free air. . There is no ascites. Lymph nodes: There is bulky adenopathy. This includes the periaortic region where some of the lymphnodes have low-density centers suggesting necrosis. Adenopathy extends in the right inguinal region and right pelvic sidewall. The adenopathy encases both renal arteries. Both renal veins are patent. Aorta and iliac vessels: No evidence of abdominal aortic or iliac artery aneurysm Despite the gross adenopathy, inferior vena cava and iliac veins are patent. Abdominal wall: No abdominal wall hernia Bones of the abdomen and pelvis: No fracture or bony pelvis or proximal femurs. Mild osteoarthritis right hip. Sacroiliac joints normal. Lumbar spine: No fracture or focal lesion. No spondylolysis or spondylolisthesis. Mild degenerative changes. IMPRESSION: CTA 1. No pulmonary embolism. 2. No thoracic aortic aneurysm or dissection. CHEST 1. No acute pulmonary, pleural, or mediastinal abnormality. 2. No fracture. ABDOMEN AND PELVIS: 1. Bulky abdominal pelvic adenopathy with some necrosis. It is presumed to be neoplastic in nature.. 2. No metastasis or primary tumor seen in the major organs of the abdomen and pelvis. 3. No bony metastasis. 4. There is bilateral hydronephrosis presumably due to the adenopathy obstructing both ureters. In addition there is generalized delay in enhancement of the right kidney compared to the left. This differential enhancement could be explained by either a greater degree of obstruction on the rightside, or some compromise of the right renal artery which is surrounded by tumor. LUMBAR SPINE: 1. No fracture. 2. Normal alignment. 3. Mild degenerative change. WSN: [id number] Ordering Physician: Jaimie Stroud Dictated By: Federico Rocha MD Dictated Date/Time: 09/16/24 10:46 a Reviewed By: Federico Rocha MD Signed By: Federico Rocha MD Signed Date/Time: 09/16/24 10:46 am Transcribed By: MASHA Transcribed Date/Time: 09/16/24 10:06 am Vital Signs Most recent to oldest [Reference Range]: 1 2 3 Height 191 cm (09/18/24 3:12 PM) 191 cm (09/18/24 11:06 AM) 191 cm (09/18/24 8:38 AM) Weight 90 kg (09/16/24 2:18 PM) 90 kg (09/16/24 8:40 AM) Oxygen Saturation [94-100 %] 100 % (09/19/24 8:00 AM) 100 % (09/19/24 3:00 AM) 100 % (09/18/24 8:00 PM) Pulse Rate [55-90 bpm] 94 bpm *H* (09/19/24 8:00 AM) 87 bpm (09/19/24 3:00 AM) 103 bpm *H* (09/18/24 8:00 PM) Body Mass Index [18.5-24.99 kg/m2] 24.67 kg/m2 (09/16/24 2:18 PM) Blood Pressure [90-138/55-84 mm Hg] 144/87mm Hg *H* (09/19/24 8:00 AM) 135/81mm Hg (09/19/24 3:00 AM) 132/88mm Hg (09/18/24 8:00 PM) Respiratory Rate [16-30 br/min] 18 br/min (09/19/24 8:00 AM) 18 br/min (09/19/24 3:00 AM) 18 br/min (09/18/24 8:00 PM) Temperature [96.8-100.4 DegF] 98.2 DegF (09/19/24 8:00 AM) 98.4 DegF (09/19/24 3:00 AM) 99.1 DegF (09/18/24 8:00 PM) Mode of Delivery (Oxygen) Room air (09/19/24 8:00 AM) Room air (09/19/24 3:00 AM) Room air (09/18/24 8:00 PM) Blood pressure sites Arm, left (09/19/24 8:00 AM) Arm, left (09/19/24 3:00 AM) Arm, left (09/18/24 8:00 PM) Temperature Route Oral (09/19/24 8:00 AM) Oral (09/19/24 3:00 AM) Oral (09/18/24 8:00 PM) Dry Weight 90 kg (09/16/24 2:18 PM) 90 kg (09/16/24 8:40 AM) Weight Obtained Via Patient/family state d (09/16/24 8:40 AM) Social History Social History Type Response Smoking Status Never (less than 100 in lifetime) entered on: 09/16/24 Sex Sex Representation Male (finding) History and physical note * Event Display: History and Physical Hospital Authored Date: * Maddy SAINI, Karlos: PERFORM Event Display: History and Physical Hospital Authored Date: [id number] Patient: ??CHARO ESTRADA ? Age:??43 Years?Sex:??Male?:??1980?? 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 He woke up in his usual state of health, went to work around 3 AM and was standing up for daily briefing at around 4 am when he felt lightheaded and felt his heart racing, heart rate was around 150 on his watch, rested and felt a little better, had recurrent episode few hours later where he felt that he was going to pass out, heart racing, slightly improved after sitting down but still feels some palpitation.?? He had an energy drink yesterday but no dinner or food this morning and had??not had any??water??in the morning.?? In fact over the past few days he has not eaten much??because of poor appetite.?? He denies any??episode of passing out??completely and no falls.?? Heis lost??weight over the past year??about 90 pounds??since being on Ozempic.? With regards to his testicular cancer, was diagnosed in February 2023??and he underwent??right orchiectomy??followed by chemo from March to June of 2023. ??He is followed up with his urologist and had a CAT scan done in April.?? Patient was told that the CT was normal, he opened his??patient portal??with CT report and??I reviewed his??CT report on his patient portal??with him and it appears that he had??lymphadenopathy??on his CT read??from April.?? Since??June he has had??right-sided flank pain??going to his right groin??intermittently and some subjective fevers.?? Subsequentlythe pain has migrated from the right side to the left side, was significantly worse than his recentvacation in August??to [place]??and he was seen at urgent care??2 times and was??initially treated for constipation and then prescribe anti-inflammatory, steroid and muscle relaxer with some improvement??but worsening after steroids were stopped.?? On my interview today he reports??intermittent left flank pain??going into his left groin and??testis??improved at the time of my interview.?? No increased swelling of his left testicle. ?? Otherwise he denies any cough or sore throat, reports some nasal congestion but??very mild. ??No??chest pain or??palpitations??now his heart rate is still in 110 to 120s. ??No??shortness of breath. ??No??nausea or vomiting. ??Intermittently gets constipation??but does not feel constipated today, no diarrhea. ??No??dysuria, urgency or frequency but due to pain??sometimes has to apply more pressure??to??urinate. ?? In the ED was given 1 L??normal saline, CTA was obtained, MRI of the lumbar spine was ordered??and he was admitted??management. ? Review of Systems All other review of systems were negative with the exception of those noted above in the HPI.?? Objective Measurements?? Height: 191 cm (09/16/24) Weight: 90 kg (09/16/24) Dry Weight: 90 kg (09/16/24) Body Mass Index: 24.67 kg/m2 (09/16/24) ? Vital Signs?? Temperature: 98.9 DegF (09/16/24 22:41:00) Temperature Route: Oral (09/16/24 22:41:00) Pulse Rate:??105 bpm??High (09/16/24 22:41:00) Respiratory Rate: 18 br/min (09/16/24 22:41:00) Systolic Blood Pressure: 123 mm Hg (09/16/24 22:41:00) Diastolic Blood Pressure: 70 mm Hg (09/16/24 22:41:00) Blood pressure sites: Arm, right (09/16/24 22:41:00) Mean Arterial Pressure: 88 mm Hg (09/16/24 19:01:00) Pulse Pressure: 42 mm Hg (09/16/24 19:01:00) Oxygen Saturation: 98 % (09/16/24 22:41:00) Mode of Delivery (Oxygen): Room air (09/16/24 22:41:00) Early Warning Score: 1 (09/16/24 23:04:05) ? Intake/Output? No Data Available ? Physical Exam Constitutional: Alert, in no acute distress. Head EENT: Extraocular muscle movement intact.??Moist mucous membranes.?? Neck: Supple. No JVD. Respiratory: Clear to auscultation. No wheezing or crackles. No use of accessory muscles. Cardiovascular: S1S2 regular.?? Mild tachycardia, no murmurs, rubs or gallops. Gastrointestinal: Abdomen soft, non-tender, non-distended. Normal bowel sounds. Genitourinary: Mild bilateral CVA angle tenderness,??left??groin discomfort on palpation, no significant left??testicular tenderness or swelling. Extremities: No lower extremity pitting??edema. No cyanosis or clubbing. Neurologic: AAOx3, Speech normal. No focal neurological deficits. Skin: No rash. Psychiatric: Normal mood and affect Assessment/Plan Diagnoses 1. ??Bilateral hydronephrosis ??(N13.30) 2. ??Pelvic lymphadenopathy ??(R59.0) 3. ??Acute kidney injury ??(N17.9) 4. ??Prior testicular cancer ??(Z85.47) 5. ??Normocytic anemia ??(D64.9) 6. ??Sinus tachycardia ??(R00.0) 7. ??Dizziness ??(R42) 8. ??Non-insulin treated type 2 diabetes mellitus ??(E11.9) ?? Bilateral hydronephrosis (N13.30) ?Associated with??Pelvic lymphadenopathy (R59.0),??Prior testicular cancer (Z85.47),??Acute kidney injury (N17.9),??Normocytic anemia (D64.9) ? History of testicular cancer s/p surgical resection and chemotherapy. He??was diagnosed in February 2023??and he underwent??right orchiectomy??followed by chemo from March to June of 2023.??He is followed up with his urologist and had a CAT scan done in April.??Patient was told that the CT was normal, he opened his??patient portal??with CT report and??I reviewed his??CT report on his patient portal??with him and it appears that he had??lymphadenopathy??on his CT read??from April.??Since??June he has had??right-sided flank pain??going to his right groin??intermittently and some subjective fevers.??Subsequently the pain has migrated from the right side to the left side, was significantly worse than his recent vacation in August??to [place]??and he was seen at urgent care??2 times and was??initially treated for constipation and then prescribe anti-inflammatory, steroid and muscle relaxer with some improvement??but worsening after steroids were stopped.? -Creatinine previously was 1, UA is negative,??could be??combination of prerenal as well as compression from pelvic lymphadenopathy --CT angio chest, CT abdomen pelvis, no pulmonary embolism, no thoracic aortic aneurysm or dissection, no acute pulmonary/pleural/mediastinal abnormality, no fracture, abdomen findings of bulky abdominal pelvic adenopathy with some necrosis, presumed to be neoplastic in nature, no metastasis or primary tumor seen in the major organs of abdomen and pelvis, no bony metastasis, bilateral hydronephrosis presumably due to adenopathy obstructing both ureters, generalized delay in the enhancement of the right kidney compared to the left, could be explained either by a greater degree of obstruction on the right side or some compromise of the right renal artery which is surrounded by the tumor.??No fracture or alignment abnormality noted in the lumbar spine. -Urology was consulted and recommended LDH, AFP and beta-hCG which have ordered.??N.p.o. after midnight for possible need for stenting.?Management of??malignancy??per urology, day team??can discuss tomorrow if??oncology??needs to be involved. - MRI lumbar spine ordered by ED, pending at this time - Urology??recommended CT head with contrast,??patient has received large amount of contrast today so we will have to hold??on this for today.??Follow-up on kidney function tomorrow and??can obtain as appropriate. ?? Sinus tachycardia (R00.0) ?Associated with??Dizziness (R42) ? -Heart rate 118, blood pressure 141/87 -White cell count 10.9.??Afebrile.??UA without any white cells.??HIV was tested in the ED and was negative. -Sodium 131, potassium 4.5, magnesium was not checked?? -TSH 0.81, free T41.67 -EKG with sinus tachycardia, no acute ischemic changes,???LVH. troponin 11 -CT angio chest, CT abdomen pelvis, no pulmonary embolism, no thoracic aortic aneurysm or dissection, no acute pulmonary/pleural/mediastinal abnormality, no fracture, abdomen findings of bulky abdominal pelvic adenopathy with some necrosis, presumed to be neoplastic in nature, no metastasis or primary tumor seen in the major organs of abdomen and pelvis, no bony metastasis, bilateral hydronephrosis presumably due to adenopathy obstructing both ureters, generalized delay in the enhancement of the right kidney compared to the left, could be explained either by a greater degree of obstruction onthe right side or some compromise of the right renal artery which is surrounded by the tumor.??No fracture or alignment abnormality noted in the lumbar spine. ?? With history of??not eating dinner last night, no breakfast today morning??and poor p.o. intake forthe past few days, MIK??and dizziness with presyncope, his??symptoms appear to be secondary to??dehydration.??Also component of pain and anxiety??contributing to tachycardia.??PE has been ruled out. -No dizziness after 1 L bolus, will give more 500 cc fluid and then continue maintenance 150 cc/h -Continue to evaluate any monitoring -Pain management with lidocaine patch and Tylenol, consider opiate use of??uncontrolled but seems manageable for now. -Obtain EKG if rhythm changes from sinus tach to something else??in which case we will consider??echo.??If any further episodes of presyncope will consider echo??inpatient??otherwise can be done as outpatient ?? Non-insulin treated type 2 diabetes mellitus (E11.9):??Hold metformin and semaglutide while admitted,??sliding scale insulin with POC glucose check for now. ? Histories Allergies Allergies ?(Active and Proposed Allergies Only) No Known Medication Allergies? (Severity: Unknown severity, Onset: Unknown) ? Past Medical History/Problem List No problems documented. ? Past Surgical History No surgery history documented. ? Social History Alcohol Details:??Use: Never. 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 Home/Environment Details:??Living situation: Home/Independent. ??Lives with: Significant other. Nutrition/Health Details:??Diet: Diabetic. Substance Abuse Details:??Use: Never. Tobacco Details:??Use: Never (less than 100 in lifetime). Electronic Cigarette/Vaping Details:??Electronic Cigarette Use: Never. ? Family History No Family History??of testicular cancer ? Medications Home Medications Metformin??850 Milligram By Mouth 2 times a day semaglutide (Ozempic)??1 Milligram Subcutaneous Infusion ? Inpatient Medications Medications (15) Active SCHEDULED: (4) Insulin Lispro 100 units/mL Inj (Insulin LISPRO Sliding Scale) ??2-10 units, Subcutaneous Injection, 3 times a day before meals Insulin Lispro 100 units/mL Inj (Insulin LISPRO Sliding Scale) ??1-5 units, Subcutaneous Injection,3 times a day before meals Magnesium Sulfate 1 Gm/ 100 mL D5W (Magnesium Sulfate IVPB) ??1 Gm 100 mL, IVPB, Once NaCl 0.9% Flush 3ml (NaCL 0.9% Flush) ??3 mL, IV Push, Every 8 hours CONTINUOUS: (1) NaCL 0.9% (1000 mL) Cont IV 1,000 mL (NaCL 0.9% 1,000 mL) ??1,000 mL, IV Infusion, 150 mL/hr PRN: (10) Acetaminophen 325 mg Tablet (Acetaminophen Tablet) ??650 mg, By Mouth, Every 4 hours Dextrose Inj Syringe (Dextrose 50% Inj Syringe (25Gm)) ??12.5 Gm, IV Push Slowly, Every 20 minutes Dextrose Inj Syringe (Dextrose 50% Inj Syringe (25Gm)) ??25 Gm, IV Push Slowly, Every 15 minutes Glucagon 1 mg Inj (Glucagon Inj) ??1 mg, Intramuscular, Once Glucose 40% Gel (15 Gm) (Glucose Gel) ??15 Gm, By Mouth, Every 20 minutes Glucose 40% Gel (15 Gm) (Glucose Gel) ??30 Gm, By Mouth, Every 20 minutes Melatonin 3 mg Tablet (Melatonin Tablet) ??3 mg, By Mouth, Daily at bedtime NaCl 0.9% Flush 3ml (NaCL 0.9% Flush) ??3 mL, IV Push, Every 8 hours Polyethylene Glycol 17 Gm Powder (MiraLax Powder) ??17 Gm 1 pack/packet, By Mouth, Daily Senna Tablet ??8.6 mg 1 tablet, By Mouth, 2 times a day ? Results Recent Labs BLOOD COUNT & DIFF WBC 10.9 k/mm3 ()?? 09/16/2024 09:47 RBC 3.74 m/mm3 (Low)?? 09/16/2024 09:47 Hgb 9.6 Gm/dL (Low)?? 09/16/2024 09:47 Hct 31.1 % (Low)?? 09/16/2024 09:47 MCV 83.2 femtoliters ()?? 09/16/2024 09:47 MCH 25.7 pg (Low)?? 09/16/2024 09:47 MCHC 30.9 Gm/dL (Low)?? 09/16/2024 09:47 Platelet Count 390 k/mm3 ()?? 09/16/2024 09:47 RDW-SD 45.5 femtoliters ()?? 09/16/2024 09:47 MPV 9.3 femtoliters (Low)?? 09/16/2024 09:47 Nucleated RBC (Automated) 0.0 #/100 WBC'S ()?? 09/16/2024 09:47 Abs. NRBC 0.0 k/mm3 ()?? 09/16/2024 09:47 Abs. Neut 9.7 k/mm3 (High)?? 09/16/2024 09:47 Abs. Lymph 0.4 k/mm3 (Low)?? 09/16/2024 09:47 Abs. [place] 0.7 k/mm3 ()?? 09/16/2024 09:47 Abs. Eo 0.0 k/mm3 ()?? 09/16/2024 09:47 Abs. Baso 0.0 k/mm3 ()?? 09/16/2024 09:47 Neut % 89.0 % (High)?? 09/16/2024 09:47 Lymph % 3.2 % (Low)?? 09/16/2024 09:47 [place] % 6.0 % ()?? 09/16/2024 09:47 Eos % 0.0 % ()?? 09/16/2024 09:47 Baso % 0.4 % ()?? 09/16/2024 09:47 Imm Gran 1.4 % ()?? 09/16/2024 09:47 Abs. Imm Gran 0.2 k/mm3 ()?? 09/16/2024 09:47 ?? CARDIAC High Sensitivity Troponin (HSTnT) 10 ng/L ()?? 09/16/2024 12:18 ?? CHEM GENERAL Sodium 131 mmol/L (Low)?? 09/16/2024 09:42 Potassium 4.5 mmol/L ()?? 09/16/2024 09:42 Chloride 93 mmol/L (Low)?? 09/16/2024 09:42 Bicarbonate Level 25 mmol/L ()?? 09/16/2024 09:42 Anion Gap 13 mmol/L ()?? 09/16/2024 09:42 Glucose Level 120 mg/dL (High)?? 09/16/2024 09:42 Glucose, POC 133 mg/dL (High)?? 09/16/2024 21:21 BUN 25 mg/dL (High)?? 09/16/2024 09:42 Creatinine-Blood 1.72 mg/dL (High)?? 09/16/2024 09:42 Estimated GFR Creatinine 50 ML/MIN/1.73 M2 ()?? 09/16/2024 09:42 Calcium 8.8 mg/dL ()?? 09/16/2024 09:42 Magnesium 1.8 mg/dL ()?? 09/16/2024 09:42 Protein, Total 8.0 Gm/dL ()?? 09/16/2024 09:42 Albumin 3.6 Gm/dL ()?? 09/16/2024 09:42 AG Ratio 0.8 ()?? 09/16/2024 09:42 LDH 688 units/L (High)?? 09/16/2024 14:24 Alkaline Phosphatase 86 units/L ()?? 09/16/2024 09:42 AST (SGOT) 22 units/L ()?? 09/16/2024 09:42 ALT (SGPT) 16 units/L ()?? 09/16/2024 09:42 Bilirubin, Total 0.5 mg/dL ()?? 09/16/2024 09:42 ?? ENDOCRINE/TUMOR MARKER TSH 0.81 uIU/mL ()?? 09/16/2024 09:42 Free T4 1.67 ng/dL ()?? 09/16/2024 09:42 BHCG (HCG & Beta) 1 mIU/mL ()?? 09/16/2024 14:24 ?? HEME OTHER Hold Lavender Top SPECIMEN DISCARDED AFTER 24 HOURS. ()?? 09/16/2024 14:24 ?? UA/URINALYSIS Appear/Color, Urine LIGHT YELLOW ()?? 09/16/2024 10:34 Specific [place], Urine 1.021 ()?? 09/16/2024 10:34 pH, Urine 6.0 ()?? 09/16/2024 10:34 Albumin, Urine TRACE (Abnormal)?? 09/16/2024 10:34 Glucose, Urine NEGATIVE ()?? 09/16/2024 10:34 Ketones, Urine NEGATIVE ()?? 09/16/2024 10:34 Bilirubin, Urine NEGATIVE ()?? 09/16/2024 10:34 Hemoglobin, Urine NEGATIVE ()?? 09/16/2024 10:34 Nitrite, Urine NEGATIVE ()?? 09/16/2024 10:34 Leukocyte, Urine NEGATIVE ()?? 09/16/2024 10:34 Urobilinogen NORMAL mg/dL ()?? 09/16/2024 10:34 WBC's, Urine 2 /HPF ()?? 09/16/2024 10:34 RBC's, Urine 1 /HPF ()?? 09/16/2024 10:34 Squamous Epith <1 /HPF ()?? 09/16/2024 10:34 Hyaline Cast 1 LPF ()?? 09/16/2024 10:34 Mucus SLIGHT /LPF ()?? 09/16/2024 10:34 Hold Urine Culture Testing available 48 hours from time of collection. ()?? 09/16/2024 10:34 ?? URINE OTHER Est Creatinine Clearance 67.23 mL/min ()?? 09/16/2024 11:03 ?? VIROLOGY HIV STAT Screen Result NEGATIVE ()?? 09/16/2024 09:47 ? EKG study * Event Display: EKG Authored Date: * Event Display: ECG 12-Lead Authored Date: Please click on pdf link to open report * Event Display: ECG 12-Lead Authored Date: Ventricular Rate: 115 BPM Atrial Rate: 115 BPM P-R Interval: 146 ms QRS Duration: 82 ms Q-T Interval: 306 ms QTC Calculation(Bazett): 423 ms P [place]: 42 degrees R [place]: 20 degrees T [place]: 10 degrees Sinus tachycardia Minimal voltage criteria for LVH, may be normal variant ( R in aVL ) Borderline ECG No previous ECGs available Confirmed by JACKELIN JOSEPH MD ([id number]) on 09/16/2024 11:34:17 AM [place]: [facility] * Bethany Cortez RN: PERFORM, SIGN, VERIFY Event Display: [facility] Authored Date: [id number] Patient: CHARO ESTRADA Age: 43 years Sex: Male : 1980 Associated Diagnoses: None Author: Bethany Cortez RN Findings Problem Related to Alteration in Genitourinary : Alteration in Genitourinary Function/new 09/19/2024 6:00 EST Alteration in Status Related to Urology procedure Goals & Outcomes, Genitourinary Pt will achieve normal/improved fluid balance, Pt will maintainadequate function appropriate for pt, Pt will maintain normal fluid balance Interventions, Assess/monitor/maintain Genitourinary status Goals/Interventions, Genitourinary Yes Genitourinary, Problem Start 09/18/2024 14:00 Reviewed Plan with, Genitourinary Patient Patient Progression, Genitourinary Patient progressing according to plan Genitourinary, Problem Ongoing Yes . Nursing Data Vital Signs : VITAL SIGNS SECTION 09/19/2024 3:00 EST Temperature 98.4 DegF Temperature Route Oral Pulse Rate 87 bpm Respiratory Rate 18 br/min Systolic Blood Pressure 135 mm Hg Diastolic Blood Pressure 81 mm Hg Blood pressure sites Arm, left Pulse Pressure 54 mm Hg Oxygen Saturation 100 % Mode of Delivery (Oxygen) Room air . Narrative/Incidental Pt A & O x 4. Pt moved rooms this shift and is much more comfortable with his new roommate. Pt's dressings are clean, dry and intact. See CIS for full assessment. . * Kimi Arce: PERFORM, SIGN, VERIFY Event Display: Progress Note Hospital Authored Date: Patient: CHARO ESTRADA Age: 43 years Sex: Male : 1980 Associated Diagnoses: None Author: Kimi Arce Findings Problem Related to Alteration in Genitourinary : Alteration in Genitourinary Function/new 09/18/2024 14:00 EST Alteration in Status Related to Urology procedure Goals & Outcomes, Genitourinary Pt will achieve normal/improved fluid balance, Pt will maintainadequate function appropriate for pt, Pt will maintain normal fluid balance Interventions, Assess/monitor/maintain Genitourinary status, Encourage PO fluid intake as allowed by diet Goals/Interventions, Genitourinary Yes Genitourinary, Problem Start 09/18/2024 14:00 Reviewed Plan with, Genitourinary Patient, Spouse/significant other Patient Progression, Genitourinary Plan Initiation Genitourinary, Problem Ongoing Yes . Evaluation Assumed care of patient at 1300 on W4. VSS, cooperative with care. AAOx4. BP/HR slightly elevated, MD Stallings notified. Bilateral nephrostomy tubes emptied and documented, with right tube putting out pink urine. Prompt attention and action to move patient to new room per roommate inappropriate behaviorand comments towards patient. Purposeful RN rounding for safety with call cates within reach. See CIS for full assessment. . * Aura Toscano RN: PERFORM, SIGN, VERIFY Event Display: Progress Note Hospital Authored Date: Patient: CHARO ESTRADA Age: 43 years Sex: Male : 1980 Associated Diagnoses: None Author: Aura Toscano RN Findings Pt left to IR report given to W4 Nurse aware IR took pt belongings given room informationaware plan see chart for further assessment. Consult note * Dhara Rhodes MD: PERFORM Event Display: Consultation Note Authored Date: Patient: ??CHARO ESTRADA ? Age:??43 Years?Sex:??Male?:??1980?? 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 ??Patient woke up in his usual state of health, went to work around 3 AM and at 4 AM during debriefing felt lightheaded, heart rate was 150s on his watch, rested and??felt a little better. ??He had a similar episode a few hours later and presented to the ER for further evalauation. ??He tells me that since this??June??he has been having??right-sided back pain which would radiate down his leg, was seen in the urgent care and was given muscle relaxants, prednisone and Tylenol??and continued to have??on and off fevers and fatigue??which initially thought was COVID/flu??but later got concerned??because it??did not resolve??in 2 months.?? Most recently he started having left back pain??and this would radiatedown to his left groin. ??He denies any testicular swelling. ?? On admission CT chest showed no PE, no pulmonary pleural or mediastinal abnormality. ??CT abdomen pelvis showed bulky abdominal pelvic adenopathy with some necrosis, presumed to be neoplastic in nature. ??There is bilateral hydronephrosis probably due to adenopathy obstructing both ureters. ??He was evaluated by urology for bilateral stenting versus bilateral PCNs.?Patient also had an MRI spine which showed no evidence of lumbar spine metastatic this, partially imaged bulky retroperitoneal lymphadenopathy with bilateral hydronephrosis. ?? His LDH is 688, alpha-fetoprotein less than 1.8, beta-hCG 1 ? 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 -Had a CAT scan in April of last year??which showed??new perirenal??and retroperitoneal lymphadenopathy 1 to 2 cm in size. ?? Subjective: -Reports discomfort in his back Review of Systems All systems reviewed and the pertinent positive and negative as mentioned above Problem List/Past Medical History Ongoing No qualifying data Social History Alcohol Use: Never. Electronic Cigarette/Vaping Electronic Cigarette Use: Never. 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 Home/Environment Living situation: Home/Independent. Lives with: Significant other. Nutrition/Health Diet: Diabetic. Substance Abuse Use: Never. Tobacco Use: Never (less than 100 in lifetime). Allergies No Known Medication Allergies Medications Inpatient Acetaminophen Tablet, 650 mg, By Mouth, Every 4 hours, PRN Dextrose 50% Inj Syringe (25Gm), 12.5 Gm, IV Push Slowly, Every 20 minutes, PRN Dextrose 50% Inj Syringe (25Gm), 25 Gm, IV Push Slowly, Every 15 minutes, PRN Glucagon Inj, 1 mg, Intramuscular, Once, PRN Glucose Gel, 15 Gm, By Mouth, Every 20 minutes, PRN Glucose Gel, 30 Gm, By Mouth, Every 20 minutes, PRN Insulin LISPRO Sliding Scale, 2-10 units, Subcutaneous Injection, 3 times a day before meals Melatonin Tablet, 3 mg, By Mouth, Daily at bedtime, PRN MiraLax Powder, 17 Gm= 1 pack/packet, By Mouth, Daily, PRN NaCL 0.9% 1,000 mL, 1000 mL, IV Infusion NaCL 0.9% Flush, 3 mL, IV Push, Every 8 hours NaCL 0.9% Flush, 3 mL, IV Push, Every 8 hours, PRN Senna Tablet, 8.6 mg= 1 tablet, By Mouth, 2 times a day, PRN Home metFORMIN 850 mg oral tablet, 850 mg= 1 tablet, By Mouth, 2 times a day Ozempic (1 mg dose) 4 mg/3 mL subcutaneous solution, 1 mg, Subcutaneous Injection, Every week Physical Exam Vitals & Measurements T:??98.6?F?? TMIN:??97.9?F?? TMAX:??100.6?F?? HR:??101??(Peripheral)?? RR:??16?? BP:??128/81?? SpO2:??100%?? WT:??90??kg?? General: Patient in no apparent distress Head: Normocephalic, atraumatic?? EENT: No pallor or icterus noted. Neck: Supple Chest: No scars, sinuses?? Cardiac: S1, S2 heard; No murmur, rubs or gallops. Respiratory: Normal vesicular breath sounds heard; No adventitious sounds?? Abdomen: Soft, nontender,nondistended, normal bowel sounds. Neuro: AOx 3; No focal neurological deficits.?? Extremities: No edema, cyanosis or clubbing; warm and well perfused peripheries Skin: No rash, bleeding or ulcers. Psych: Calm and cooperative?? Lab Results/Pathology CBC?? CMP? Abs. NRBC: 0 k/mm3 (09/17/24 09:15:00) AG Ratio: 0.9 (09/17/24 09:15:00) LDH:??688 units/L??High (09/16/24 14:24:00) Hct:??29.6 %??Low (09/17/24 09:15:00) Alkaline Phosphatase: 84 units/L (09/17/24 09:15:00) ?? Nucleated RBC (Automated): 0 #/100 WBC'S (09/17/24 09:15:00) ALT (SGPT): 14 units/L (09/17/24 09:15:00) ?? RBC:??3.56 m/mm3??Low (09/17/24 09:15:00) Anion Gap: 11 mmol/L (09/17/24 09:15:00) ?? RDW-SD: 45.9 femtoliters (09/17/24 09:15:00) AST (SGOT): 21 units/L (09/17/24 09:15:00) ?? WBC: 10.3 k/mm3 (09/17/24 09:15:00) Bicarbonate Level: 26 mmol/L (09/17/24 09:15:00) ? Bilirubin, Total: 0.6 mg/dL (09/17/24 09:15:00) ? BUN: 15 mg/dL (09/17/24 09:15:00) ? Calcium: 9.2 mg/dL (09/17/24 09:15:00) ? Chloride: 101 mmol/L (09/17/24 09:15:00) ? Creatinine-Blood:??1.22 mg/dL??High (09/17/24 09:15:00) ? Estimated GFR Creatinine: 76 ML/MIN/1.73 M2 (09/17/24 09:15:00) ? Glucose Level:??111 mg/dL??High (09/17/24 09:15:00) ? Potassium: 4.1 mmol/L (09/17/24 09:15:00) ? Protein, Total: 7.9 Gm/dL (09/17/24 09:15:00) ? Sodium: 138 mmol/L (09/17/24 09:15:00) ?? Provider Clinical Summary 43-year-old male with a history of seminoma of the right testes??in 2022 status post orchiectomy??and chemotherapy with BEP presents with??ongoing back pain, dizziness, low-grade fevers??and was found to have bulky??pelvic??adenopathy??on the CAT scan??along with bilateral hydronephrosis??probably due to??obstruction.?? Patient was evaluated by urology and plan is for him to have IR guided??PCN's??to relieve??hydronephrosis.?? With??patient's history??and new bulky lymphadenopathy??it is possible that patient has had relapsed disease however the same??needs to be confirmed??on a biopsy??[IR guided biopsy??of the lymph nodes].?? We would also recommend??getting??a testicular ultrasound.?? Onc e patient has his biopsy can be discharged??and we will arrange for outpatient follow-up??with us at the cancer center. Plan: -Please obtain testicular usg -Please obtain IR guided biopsy of the LN after which patient can be discharged - He will need f/u with oncology (which we are arranging) to discuss the treatment options ?? Discussed with Dr. Hall ?? * Isabel SAINI, Lazaro: PERFORM Event Display: Consultation Note Authored Date: Reviewed the case with the??fellow, and discussed the situation with patient's ??as the patientwas??undergoing??a procedure.?? We will need documentation from [facility] [place] regarding pathology (with pathology review) and past imaging as well as past chemotherapy??regimen and drug doses.?? Biopsy??of retroperitoneal mass??will be arranged;??tumor markers??have been obtained, with only??LDH elevated. ??I agree??with the assessment plan as outlined in this note. * Aung Chu: PERFORM Event Display: Consultation Note Authored Date: [id number] Patient: ??CHARO ESTRADA ? Age:??43 Years?Sex:??Male?:??1980?? Chief Complaint/Reason for Consultation chest pain dizziness- coming from work- acute onset- slight nausea- History of Present Illness This is a 43-year-old male with a history of type 2 diabetes (metformin/Ozempic), testicular cancer(status post right orchiectomy, chemotherapy by Dr. López in 2022) seen in consult for bilateral hyd ronephrosis.?? For the past 2 months, he has had low back pain, poor p.o. intake, nausea.?? He has been to several urgent cares without any response.?? A CT abdomen pelvis showed bilateral hydronephrosis in the setting of bulky adenopathy in the region of the periaortic lymph nodes which extends tothe right inguinal region and right pelvic sidewall which encases both renal arteries.??He has no leukocytosis, his creatinine is 1.7 (previously 1.0 in January), UA is negative.?? At the time of our exam his vital signs were stable.?? He has denied any hematuria.?? He has endorsed night sweats, fevers. Review of Systems Constitutional:??Weight loss, night sweats, fevers, chills. Respiratory:??No shortness of breath, cough or sputum production. Cardiovascular:??No chest pain, chest pressure or chest discomfort. No palpitations or pedal edema. Gastrointestinal:??Nausea. ??No anorexia,??vomiting or diarrhea. No abdominal pain or blood in stool. Genitourinary:??No burning micturition, hematuria, discharge,??urinary frequency or incontinence. Neurologic:??No headache, dizziness, syncope, bladder sensation loss. Objective Measurements?? Height: 191 cm (09/16/24) Weight: 90 kg (09/16/24) Dry Weight: 90 kg (09/16/24) Body Mass Index: 24.67 kg/m2 (09/16/24) ? Vital Signs?? Temperature: 98.4 DegF (09/16/24 14:18:00) Temperature Route: Oral (09/16/24 14:18:00) Pulse Rate:??114 bpm??High (09/16/24 14:18:00) Respiratory Rate: 18 br/min (09/16/24 14:18:00) Systolic Blood Pressure:??151 mm Hg??High (09/16/24 14:18:00) Diastolic Blood Pressure: 83 mm Hg (09/16/24 14:18:00) Blood pressure sites: Arm, right (09/16/24 14:18:00) Mean Arterial Pressure: 106 mm Hg (09/16/24 14:18:00) Pulse Pressure: 68 mm Hg (09/16/24 14:18:00) Oxygen Saturation: 100 % (09/16/24 14:00:00) Mode of Delivery (Oxygen): Room air (09/16/24 14:00:00) Early Warning Score: 3 (09/16/24 14:26:05) ? Pain Scores 1 - 10 Pain Scale Score: 2 (08:40) ?? Intake/Output? No Data Available ?? Basic ADLs Assistance w bathing/eating/dressing: No (09/16/24) Need for Assist w/ Walk/Transfer: No (09/16/24) ? Physical Exam Constitutional: Alert, in no distress. Mental Status: Oriented to person, place and time. Respiratory: Equal and unlabored respiratory effort. Gastrointestinal: Abdomen soft, non-tender, non-distended. Normal bowel sounds. No pulsatile mass. No hepatosplenomegaly. Genitourinary: No costovertebral angle tenderness. ??Absent right testicle, left testicle with no??masses or lesions, rashes, open sores.?? Anatomical landmarks easily palpable with no tenderness to palpation. Assessment/Plan Bilateral hydronephrosis (N13.30) ?Associated with??Prior testicular cancer (Z85.47),??Pelvic lymphadenopathy (R59.0),??Acute kidney injury (N17.9) ? This is a 43-year-old male with a history of type 2 diabetes (metformin/Ozempic), testicular cancer (status post right orchiectomy, chemotherapy by Dr. López in 2022) seen in consult for bilateral hydronephrosis.?Creatinine is elevated to 1.7 which was previously 1.0 in January.??UA is negative.??Likely in the setting of compression from??pelvic lymphadenopathy.??He has had a CT scan inOctober of this year which??also demonstrated pelvic lymphadenopathy??concerning for??recurrence.??CT scan is negative.??In regards to his obstructive uropathy, he should be n.p.o. after midnight forpotential intervention with??bilateral stenting, versus bilateral PCNs.??His lymph nodes should be biopsied.?? Please draw??LDH, alpha-fetoprotein,??beta-hCG, and consider??brain CT. ??Urology will continue to follow this patient. ?? This patient was discussed with attending physician Dr. Julio. Histories Allergies Allergies ?(Active and Proposed Allergies Only) No Known Medication Allergies? (Severity: Unknown severity, Onset: Unknown) ? Past Medical History/Problem List No problems documented. ? Past Surgical History No surgery history documented. ? Social History Alcohol Details:??Use: Never. 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 Home/Environment Details:??Living situation: Home/Independent. ??Lives with: Significant other. Nutrition/Health Details:??Diet: Diabetic. Substance Abuse Details:??Use: Never. Tobacco Details:??Use: Never (less than 100 in lifetime). Electronic Cigarette/Vaping Details:??Electronic Cigarette Use: Never. ? Family History No Family History documented. ? Medications Home Medications Metformin??850 Milligram By Mouth 2 times a day semaglutide (Ozempic)??1 Milligram Subcutaneous Infusion ? Results Recent Labs BLOOD COUNT & DIFF WBC 10.9 k/mm3 ()?? 09/16/2024 09:47 RBC 3.74 m/mm3 (Low)?? 09/16/2024 09:47 Hgb 9.6 Gm/dL (Low)?? 09/16/2024 09:47 Hct 31.1 % (Low)?? 09/16/2024 09:47 MCV 83.2 femtoliters ()?? 09/16/2024 09:47 MCH 25.7 pg (Low)?? 09/16/2024 09:47 MCHC 30.9 Gm/dL (Low)?? 09/16/2024 09:47 Platelet Count 390 k/mm3 ()?? 09/16/2024 09:47 RDW-SD 45.5 femtoliters ()?? 09/16/2024 09:47 MPV 9.3 femtoliters (Low)?? 09/16/2024 09:47 Nucleated RBC (Automated) 0.0 #/100 WBC'S ()?? 09/16/2024 09:47 Abs. NRBC 0.0 k/mm3 ()?? 09/16/2024 09:47 Abs. Neut 9.7 k/mm3 (High)?? 09/16/2024 09:47 Abs. Lymph 0.4 k/mm3 (Low)?? 09/16/2024 09:47 Abs. [place] 0.7 k/mm3 ()?? 09/16/2024 09:47 Abs. Eo 0.0 k/mm3 ()?? 09/16/2024 09:47 Abs. Baso 0.0 k/mm3 ()?? 09/16/2024 09:47 Neut % 89.0 % (High)?? 09/16/2024 09:47 Lymph % 3.2 % (Low)?? 09/16/2024 09:47 [place] % 6.0 % ()?? 09/16/2024 09:47 Eos % 0.0 % ()?? 09/16/2024 09:47 Baso % 0.4 % ()?? 09/16/2024 09:47 Imm Gran 1.4 % ()?? 09/16/2024 09:47 Abs. Imm Gran 0.2 k/mm3 ()?? 09/16/2024 09:47 ?? CARDIAC High Sensitivity Troponin (HSTnT) 10 ng/L ()?? 09/16/2024 12:18 ?? CHEM GENERAL Sodium 131 mmol/L (Low)?? 09/16/2024 09:42 Potassium 4.5 mmol/L ()?? 09/16/2024 09:42 Chloride 93 mmol/L (Low)?? 09/16/2024 09:42 Bicarbonate Level 25 mmol/L ()?? 09/16/2024 09:42 Anion Gap 13 mmol/L ()?? 09/16/2024 09:42 Glucose Level 120 mg/dL (High)?? 09/16/2024 09:42 BUN 25 mg/dL (High)?? 09/16/2024 09:42 Creatinine-Blood 1.72 mg/dL (High)?? 09/16/2024 09:42 Estimated GFR Creatinine 50 ML/MIN/1.73 M2 ()?? 09/16/2024 09:42 Calcium 8.8 mg/dL ()?? 09/16/2024 09:42 Magnesium 1.8 mg/dL ()?? 09/16/2024 09:42 Protein, Total 8.0 Gm/dL ()?? 09/16/2024 09:42 Albumin 3.6 Gm/dL ()?? 09/16/2024 09:42 AG Ratio 0.8 ()?? 09/16/2024 09:42 Alkaline Phosphatase 86 units/L ()?? 09/16/2024 09:42 AST (SGOT) 22 units/L ()?? 09/16/2024 09:42 ALT (SGPT) 16 units/L ()?? 09/16/2024 09:42 Bilirubin, Total 0.5 mg/dL ()?? 09/16/2024 09:42 ?? ENDOCRINE/TUMOR MARKER TSH 0.81 uIU/mL ()?? 09/16/2024 09:42 Free T4 1.67 ng/dL ()?? 09/16/2024 09:42 ?? HEME OTHER Hold Lavender Top SPECIMEN DISCARDED AFTER 24 HOURS. ()?? 09/16/2024 14:24 ?? UA/URINALYSIS Appear/Color, Urine LIGHT YELLOW ()?? 09/16/2024 10:34 Specific [place], Urine 1.021 ()?? 09/16/2024 10:34 pH, Urine 6.0 ()?? 09/16/2024 10:34 Albumin, Urine TRACE (Abnormal)?? 09/16/2024 10:34 Glucose, Urine NEGATIVE ()?? 09/16/2024 10:34 Ketones, Urine NEGATIVE ()?? 09/16/2024 10:34 Bilirubin, Urine NEGATIVE ()?? 09/16/2024 10:34 Hemoglobin, Urine NEGATIVE ()?? 09/16/2024 10:34 Nitrite, Urine NEGATIVE ()?? 09/16/2024 10:34 Leukocyte, Urine NEGATIVE ()?? 09/16/2024 10:34 Urobilinogen NORMAL mg/dL ()?? 09/16/2024 10:34 WBC's, Urine 2 /HPF ()?? 09/16/2024 10:34 RBC's, Urine 1 /HPF ()?? 09/16/2024 10:34 Squamous Epith <1 /HPF ()?? 09/16/2024 10:34 Hyaline Cast 1 LPF ()?? 09/16/2024 10:34 Mucus SLIGHT /LPF ()?? 09/16/2024 10:34 Hold Urine Culture Testing available 48 hours from time of collection. ()?? 09/16/2024 10:34 ?? URINE OTHER Est Creatinine Clearance 67.23 mL/min ()?? 09/16/2024 11:03 ?? VIROLOGY HIV STAT Screen Result NEGATIVE ()?? 09/16/2024 09:47 ? Note * Jennifer Rader RN: PERFORM Event Display: Discharge/Transfer Note Hospital Authored Date: Nursing Discharge Note Entered On: 09/19/2024 15:37 EST Performed On: 09/19/2024 15:37 EST by Jennifer Rader RN Nursing Discharge Note 2 Discharge Time : 09/19/2024 15:35 EST Discharge Level of Care at Discharge : Home/Penitentiary/Foster Care Patient Left Unit Via : Ambulatory Patient Accompanied Off Unit with : Significant other, Responsible adult DC Instructions Provided & Signed by Pt : Yes Patient Understands D/C Instructions : Yes Patient Instructions Discharge Signed : Yes Did Pt have Specialty Bed or Wound Vac : No Jennifer Rader RN - 09/19/2024 15:37 EST * Mabel Linda MD: PERFORM Event Display: Discharge/Transfer Note Hospital Authored Date: Patient: ??CHARO ESTRADA ? Age:??43 Years?Sex:??Male?:??1980?? Patient Information Discharge Location: W4 Primary Care Physician: Abiola Diamond MD Admit Date/Time: 09/16/2024 14:41 Discharge Disposition Discharge Disposition: ?? Discharge Diagnosis Bilateral hydronephrosis (N13.30) Pelvic lymphadenopathy (R59.0) Acute kidney injury (N17.9) Prior testicular cancer (Z85.47) Normocytic anemia (D64.9) Sinus tachycardia (R00.0) Dizziness (R42) Non-insulin treated type 2 diabetes mellitus (E11.9) Fever (R50.9) General medical ([id number]) _ Discharge Medications Acetaminophen (acetaminophen 325 mg oral tablet)??650 Milligram By Mouth Every 4 hours as needed for 10 Days Pain , Mild Bisacodyl (bisacodyl 10 mg rectal suppository)??1 suppository(ies) 10 Milligram Rectally Daily as needed for constipation for 5 Days Metformin (metFORMIN 850 mg oral tablet)??1 tab(s) 850 Milligram By Mouth 2 times a day semaglutide (Ozempic (1 mg dose) 4 mg/3 mL subcutaneous solution)??1 Milligram Subcutaneous Injection Every week ? Medications Started Acetaminophen (acetaminophen 325 mg oral tablet)??650 Milligram By Mouth Every 4 hours as needed for 10 Days Pain , Mild Bisacodyl (bisacodyl 10 mg rectal suppository)??1 suppository(ies) 10 Milligram Rectally Daily as needed for constipation for 5 Days Medications Discontinued None Doses Changed Nonw Allergies Allergies ?(Active and Proposed Allergies Only) No Known Medication Allergies? (Severity: Unknown severity, Onset: Unknown) ? 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 Cr back to normal.??Had??discussion with pt and at bedside. Discussed case with urology [employer] operations specialist. Discharging pt home??with plan to follow up with urology and??oncology. ?? Bilateral hydronephrosis (N13.30) Pelvic lymphadenopathy (R59.0) H/o testicular cancer (Z85.47) ?? He has a history of testicular cancer status post surgical resection and chemotherapy??in 2022.??Was??diagnosed in February 2023, underwent right orchiectomy followed by chemo??from March to June of 2023.?? Pt with intermittent??flank pain, night??sweats/fevers.? CT with bulky abdominal pelvic adenopathy with some necrosis,??as well as??bilateral hydronephrosis??likely due to adenopathy obstructing both ureters, worse on the right than the left MRI lumbar spine did not show any??abscesses??or neoplastic processes US scrotum??showed a normal left testis,??and??right side status post orchiectomy. MRI brain??did not demonstrate??findings suggestive of metastatic intracranial disease ?? -S/p bilateral PCN -S/p LN biopsy, follow up result. -Urology follow up as oupt. -Oncology as oupt -Pain management with tyelnol, offered oxy but pt refused ?? Constipation: optimizing bowel meds. Long discussion done with the pt. Sinus tachycardia (R00.0): improved. In setting of low-grade fever, dehydration??and ongoing??possible metastatic cancer. ??Improving with fluid resuscitation. ??TSH normal Low-grade fever:??No evidence of infection,??most likely due to??possible cancer Acute kidney injury (N17.9)- resolved- in setting of hydronephrosis??and dehydration DM2 (E11.9):?? metformin and semaglutide? Objective Vital Signs?? Temperature: 98.2 DegF (09/19/24 08:00:00) Temperature Route: Oral (09/19/24 08:00:00) Pulse Rate:??94 bpm??High (09/19/24 08:00:00) Respiratory Rate: 18 br/min (09/19/24 08:00:00) Systolic Blood Pressure:??144 mm Hg??High (09/19/24 08:00:00) Diastolic Blood Pressure:??87 mm Hg??High (09/19/24 08:00:00) Blood pressure sites: Arm, left (09/19/24 08:00:00) Mean Arterial Pressure: 107 mm Hg (09/18/24 15:12:00) Pulse Pressure: 54 mm Hg (09/19/24 03:00:00) Oxygen Saturation: 100 % (09/19/24 08:00:00) Mode of Delivery (Oxygen): Room air (09/19/24 08:00:00) Early Warning Score: 0 (09/19/24 11:50:07) ? . Physical Exam General?NAD, AAO HEENT?PERRLA, oropharynx clear, moist mucus membranes Pulm?CTA bilaterally, no wheezes/rhonchi/rales CV?RRR, +S1/S2, no murmurs/rubs GI?Soft, nontender, nondistended, no organomegaly, bowel sounds are present Neuro?Moves all extremities MS?no obvious deformity Psych?Mood appropriate to situation? Bilateral nephrostomy tube Pending Results Add On Lab Order ordered on 09/16/2024 Basic Metabolic Panel ordered on 09/20/2024 CBC ordered on 09/20/2024 Flow Cytometry Interpretation ordered on 09/18/2024 IR US Images ordered on 09/17/2024 Pathology Tissue Request ordered on 09/18/2024 Follow-Up Appointments Added Follow Up ?Time Frame ?Comments Abiola Diamond MD?3-5 day: call to discuss follow up visit Patient Instructions Please call [facility] to arrange follow up Home Health Face to Face ^HomeHealthFTF Results Discharge Labs BACTERIOLOGY Blood Culture Results Preliminary report ()?? 09/16/2024 09:47 Blood Culture Specimen Source BLOOD ()?? 09/16/2024 09:47 Blood Culture Isolate 1 Comment ()?? 09/16/2024 09:47 Blood Cult 2 Results Preliminary report ()?? 09/16/2024 09:47 Blood Culture 2 Specimen Source BLOOD ()?? 09/16/2024 09:47 Blood Culture 2 Isolate 1 Comment ()?? 09/16/2024 09:47 ?? BLOOD BANK Blood Type O Positive ()?? 09/18/2024 02:24 Antibody Screen Negative ()?? 09/18/2024 02:24 ?? BLOOD COUNT & DIFF WBC 5.7 k/mm3 ()?? 09/19/2024 07:05 RBC 3.20 m/mm3 (Low)?? 09/19/2024 07:05 Hgb 8.2 Gm/dL (Low)?? 09/19/2024 07:05 Hct 26.0 % (Low)?? 09/19/2024 07:05 MCV 81.3 femtoliters ()?? 09/19/2024 07:05 MCH 25.6 pg (Low)?? 09/19/2024 07:05 MCHC 31.5 Gm/dL (Low)?? 09/19/2024 07:05 Platelet Count 293 k/mm3 ()?? 09/19/2024 07:05 RDW-SD 43.8 femtoliters ()?? 09/19/2024 07:05 MPV 9.0 femtoliters (Low)?? 09/19/2024 07:05 Nucleated RBC (Automated) 0.0 #/100 WBC'S ()?? 09/19/2024 07:05 Abs. NRBC 0.0 k/mm3 ()?? 09/19/2024 07:05 Abs. Neut 8.3 k/mm3 (High)?? 09/17/2024 09:15 Abs. Lymph 0.9 k/mm3 ()?? 09/17/2024 09:15 Abs. Bamberg 1.1 k/mm3 ()?? 09/17/2024 09:15 Abs. Eo 0.0 k/mm3 ()?? 09/17/2024 09:15 Abs. Baso 0.0 k/mm3 ()?? 09/17/2024 09:15 Neut % 80.0 % (High)?? 09/17/2024 09:15 Lymph % 8.2 % (Low)?? 09/17/2024 09:15 Bamberg % 10.3 % ()?? 09/17/2024 09:15 Eos % 0.3 % ()?? 09/17/2024 09:15 Baso % 0.3 % ()?? 09/17/2024 09:15 Imm Gran 0.9 % ()?? 09/17/2024 09:15 Abs. Imm Gran 0.1 k/mm3 ()?? 09/17/2024 09:15 ?? CARDIAC High Sensitivity Troponin (HSTnT) 10 ng/L ()?? 09/16/2024 12:18 ? CHEM GENERAL Sodium 137 mmol/L ()?? 09/19/2024 07:06 Potassium 4.1 mmol/L ()?? 09/19/2024 07:06 Chloride 102 mmol/L ()?? 09/19/2024 07:06 Bicarbonate Level 24 mmol/L ()?? 09/19/2024 07:06 Anion Gap 11 mmol/L ()?? 09/19/2024 07:06 Glucose Level 97 mg/dL ()?? 09/19/2024 07:06 Glucose, POC 116 mg/dL (High)?? 09/19/2024 11:48 BUN 11 mg/dL ()?? 09/19/2024 07:06 Creatinine-Blood 1.09 mg/dL ()?? 09/19/2024 07:06 Estimated GFR Creatinine 87 ML/MIN/1.73 M2 ()?? 09/19/2024 07:06 Calcium 9.1 mg/dL ()?? 09/19/2024 07:06 Magnesium 1.8 mg/dL ()?? 09/16/2024 09:42 Protein, Total 7.9 Gm/dL ()?? 09/17/2024 09:15 Albumin 3.8 Gm/dL ()?? 09/17/2024 09:15 AG Ratio 0.9 ()?? 09/17/2024 09:15 LDH 688 units/L (High)?? 09/16/2024 14:24 Alkaline Phosphatase 84 units/L ()?? 09/17/2024 09:15 AST (SGOT) 21 units/L ()?? 09/17/2024 09:15 ALT (SGPT) 14 units/L ()?? 09/17/2024 09:15 Bilirubin, Total 0.6 mg/dL ()?? 09/17/2024 09:15 ?? ENDOCRINE/TUMOR MARKER TSH 0.81 uIU/mL ()?? 09/16/2024 09:42 Free T4 1.67 ng/dL ()?? 09/16/2024 09:42 Alpha Fetoprotein <1.8 ng/mL ()?? 09/16/2024 14:24 BHCG (HCG & Beta) 1 mIU/mL ()?? 09/16/2024 14:24 ?? HEME OTHER Hold Lavender Top SPECIMEN DISCARDED AFTER 24 HOURS. ()?? 09/16/2024 14:24 ? SEROLOGY INF DISEASE Lyme Disease Ab Screen NEGATIVE ()?? 09/16/2024 09:47 ? UA/URINALYSIS Appear/Color, Urine LIGHT YELLOW ()?? 09/16/2024 10:34 Specific [place], Urine 1.021 ()?? 09/16/2024 10:34 pH, Urine 6.0 ()?? 09/16/2024 10:34 Albumin, Urine TRACE (Abnormal)?? 09/16/2024 10:34 Glucose, Urine NEGATIVE ()?? 09/16/2024 10:34 Ketones, Urine NEGATIVE ()?? 09/16/2024 10:34 Bilirubin, Urine NEGATIVE ()?? 09/16/2024 10:34 Hemoglobin, Urine NEGATIVE ()?? 09/16/2024 10:34 Nitrite, Urine NEGATIVE ()?? 09/16/2024 10:34 Leukocyte, Urine NEGATIVE ()?? 09/16/2024 10:34 Urobilinogen NORMAL mg/dL ()?? 09/16/2024 10:34 WBC's, Urine 2 /HPF ()?? 09/16/2024 10:34 RBC's, Urine 1 /HPF ()?? 09/16/2024 10:34 Squamous Epith <1 /HPF ()?? 09/16/2024 10:34 Hyaline Cast 1 LPF ()?? 09/16/2024 10:34 Mucus SLIGHT /LPF ()?? 09/16/2024 10:34 Hold Urine Culture Testing available 48 hours from time of collection. ()?? 09/16/2024 10:34 ? URINE OTHER Est Creatinine Clearance 106.08 mL/min ()?? 09/19/2024 07:48 ? VIROLOGY HIV STAT Screen Result NEGATIVE ()?? 09/16/2024 09:47 ? Microbiology ?? Blood Culture Result?? Completed?? Source: Blood Body Site: ?? Collected Dt/Tm: 09/16/2024 09:47 Last Updated Dt/Tm: 09/17/2024 05:13 ?? Blood Culture 2 Results?? Completed?? Source: Blood Body Site: ?? Collected Dt/Tm: 09/16/2024 09:47 Last Updated Dt/Tm: 09/17/2024 05:13 ?? Blood Culture?? Completed?? Source: Blood Body Site: ?? Collected Dt/Tm: 09/16/2024 09:40 Last Updated Dt/Tm: 09/17/2024 05:12 ?? Blood Culture #2?? Completed?? Source: Blood Body Site: ?? Collected Dt/Tm: 09/16/2024 09:40 Last Updated Dt/Tm: 09/17/2024 05:12 ? >35??minutes spent on discharge * Prasanth JUDGE, Jennifer: PERFORM Event Display: Patient Education/Instruction Authored Date: [id number] Inpatient Adult Discharge Instructions. [address] [id number] Name: CHARO ESTRADA : 1980?? Visit: 09/16/2024 14:41?? Current Date: 09/19/2024 14:49 ?? Account: [id number]?? Inpatient Adult Discharge Instructions We would like to thank you for allowing us to assist you with your healthcare needs. The following includes patient education materials and information regarding your injury/illness. Our entire staffstrives to provide an excellent experience for our patients and their families. PLEASE ENSURE YOU FOLLOW-UP PER THE INSTRUCTIONS BELOW! ?? YOUR OPINION IS IMPORTANT TO US! Please complete the survey you may receive by mail or email. Your feedback will be used to make improvements to the healthcare experiences of our patients and their families. Surveys are administered by [employer] ?? If further treatment with your primary care physician or another doctor is recommended, it is important for you to keep the appointment. Call your primary care physician or return to the Emergency Department immediately if your condition worsens, fails to improve, or new symptoms develop. If you need to find a doctor, you can call [facility] official.fm for a referral at [phone] or toll free at [phone]) or log in to [email or web address].. ?? [facility], in keeping with [facility] guidance, no longer requires face masks for staff, patientsor visitors in most situations. Similiar to time spent indoors at other locations, there is the chance that you were exposed to repiratory viruses during your time with us (such as flu or COVID-19). If you develop symptoms concerning for a viral respiratory infection, please seek testing (and treatment if indicated) from your medical provider or home test kit. ?? You can view and manage your care through the patient portal or by using a health care oskar of your choosing. [employer] is a website that allows you to securely view your medical information including your hospital discharge summary, office visit summaries, medications and follow-up visits. You can also request appointments, renew medications, and request access to your medical information using a health care oskar of your choosing, or just ask a question. You are entitled to know the individuals who participated in your treatment. This information is available within your medical record and will be provided upon your request. You can enroll at [email or web address] or register d uring your next office visit. You have been discharged from [facility], Patient Care Unit: W4??. If you have any questions regarding these instructions, including results of studies pending, afteryou leave, please call us and we will be happy to assist you 04/02. [facility] Your Care Team Attending Physician Mabel Linda MD?? Consulting Providers Mabel Linda MD?? Discharging Providers Mabel Linda MD Reason for Your Visit chest pain dizziness- coming from work- acute onset- slight nausea-?? Your Diagnosis Bilateral hydronephrosis Pelvic lymphadenopathy Acute kidney injury Prior testicular cancer Normocytic anemia Sinus tachycardia Dizziness Non-insulin treated type 2 diabetes mellitus Fever General medical Tests Performed Below is a partial list of the tests performed during your hospitalization. You may have had other tests and procedures not included in this list. Please discuss all test results with your provider. AFP Tumor Marker Blood Culture Blood Culture #2 Blood Culture 2 Results Blood Culture Result BUN Calcium Level CBC w/ Differential Comprehensive Metabolic Panel Creatinine Electrolytes Glucose Level GLUCOSE POC H + H HCG Plus Beta (Females and Males) High??Sensitivity??Troponin T HIV STAT Screen With Reflex to Quant HOLD LAVENDER TUBE LDH Lyme Disease Ab Screen MAGNESIUM T4 Free Troponin T, High Sensitivity TSH Type and Screen Urinalysis w/hold for Urine Culture Brain MRI W+W/O Contrast CT Abd/Pelvis W/ IV Contrast Only CT Angio Chest CT Lumbar Spine W/ Contrast CT/ US Image Guide Biopsy IR Generic Order IR US Images?-- Results Pending -- MRI Lumbar Spine W+W/O Contrast US Scrotum and Contents AFP Tumor Marker?? Add On Lab Order?? BUN?? Basic Metabolic Panel?? Blood Culture?? Blood Culture #2?? Blood Culture 2 Results?? Blood Culture Result?? CBC?? CBC w/ Differential?? CT Abd/Pelvis W/ IV Contrast Only?? CT Angio Chest?? CT Lumbar Spine W/ Contrast?? CT/ US Image Guide Biopsy?? Calcium Level?? Comprehensive Metabolic Panel?? Creatinine?? Electrolytes?? Flow Cytometry Interpretation ()?? Free T4 (T4 Free)?? Glucose Level?? Glucose POC?? HCG Plus Beta (Females and Males)?? HIV STAT Screen With Reflex to Quant?? Hgb + Hct (H + H)?? High??Sensitivity??Troponin T (Troponin T, High Sensitivity)?? Hold Lavender Top Tube (HOLD LAVENDER TUBE)?? IR Generic Order?? IR US Images?? LDH?? Lyme Disease Ab Screen?? MRI Brain W+W/O Contrast (Brain MRI W+W/O Contrast)?? MRI Lumbar Spine W+W/O Contrast?? Magnesium Level (MAGNESIUM)?? Pathology Tissue Request ()?? TSH?? Type and Screen?? US Scrotum and Contents?? Urinalysis w/hold for Urine Culture?? Primary Care Provider Abiola Diamond MD? Advance Directive Health Care Proxy on File No Patient refuses to discuss Discharge Vitals Temperature: 98.2 DegF Height: 191 cm Pulse Rate:??94 bpm??High Weight: 90 kg Respiratory Rate: 18 br/min Body Mass Index: 24.67 kg/m2 Systolic Blood Pressure:??144 mm Hg??High Body surface area: 2.19 Diastolic Blood Pressure:??87 mm Hg??High ?? Oxygen Saturation: 100 % ?? Studies Pending All studies ordered during this hospital stay have been completed unless listed below. Please discuss all pending results with your provider listed above in these instructions. ?? Add On Lab Order?? Basic Metabolic Panel?? CBC?? Flow Cytometry Interpretation ()?? IR US Images?? Pathology Tissue Request ()?? What to do next Instructions From Your Doctor ?? Orders? 09/19/24 14:18:00 EST?? You Need to Schedule the Following Appointments Follow Up with??Abiola Diamond MD When:??Within 3-5 day: call to discuss follow up visit Where: [facility] [place] [address]- Discharge Medications CHARO ESTRADA :1980 Visit Date:09/16/2024 Medications: Please continue your medications until treatment is completed or stopped by your provider. Medications not listed below should be discontinued. Discuss any questions related to medications with your provider. What How Much When Instructions Next Dose New Acetaminophen (acetaminophen 325 mg oral tablet) 650 Milligram Oral Every 4 hours as needed for Pain , Mild Duration: 10 Days Pickup at [facility] 3 as needed New Bisacodyl (bisacodyl 10 mg rectal suppository) 1 suppository(ies) Per rectum Daily as needed for for constipation Duration: 5 Days Pickup at [facility] 3 as needed Changed Metformin (metFORMIN 850 mg oral tablet) 1 tab(s) Oral Twice a day 09/19 @ 9pm tonight Changed semaglutide (Ozempic (1 mg dose) 4 mg/ 3 mL subcutaneous solution) 1 Milligram Subcutaneous Injection Every week continue home schedule Pharmacy Information [facility]: [address], [place] [id number] [phone] Prescription Given During Visit Acetaminophen (acetaminophen 325 mg oral tablet) - 650 mg, By Mouth, Every 4 hours, # 50 tablet, 0 Refills, [facility] [address], [address] [place] [phone]?? Bisacodyl (bisacodyl 10 mg rectal suppository) - 1 supp = 10 mg, Rectally, Daily, # 5 supp, 0 Refills, [facility] [address] [place] [phone]?? Laboratory Results Below is a partial list of the most recent Laboratory test results done prior to this discharge. You may have had other tests and procedures not included in this list. Please discuss all test resultswith your provider. Est Creatinine Clearance - 106.08 mL/min (09/19/2024) AFP Tumor Marker (09/16/2024) ? ?Alpha Fetoprotein - <1.8 ng/mL Blood Culture (09/16/2024) ???Blood Culture Results - Preliminary report???Blood Culture Specimen Source - BLOOD Blood Culture #2 (09/16/2024) ???Blood Cult 2 Results - Preliminary report???Blood Culture 2 Specimen Source - BLOOD Blood Culture 2 Results (09/16/2024) ???Blood Culture 2 Isolate 1 - Comment Blood Culture Result (09/16/2024) ???Blood Culture Isolate 1 - Comment BUN (09/17/2024) ???BUN - 15 mg/dL Calcium Level (09/17/2024) ???Calcium - 8.6 mg/dL CBC w/ Differential (09/17/2024) ???WBC - 10.3 k/mm3???RBC - 3.56 m/mm3???Hgb - 9.2 Gm/dL???Hct - 29.6 %???MCV - 83.1 femtoliters???MCH - 25.8 pg???MCHC - 31.1 Gm/dL???Platelet Count - 329 k/mm3???RDW-SD - 45.9 femtoliters???MPV - 8.8 femtoliters???Nucleated RBC (Automated) - 0.0 #/100 WBC'S???Abs. NRBC - 0.0 k/mm3???Abs. Neut - 8.3 k/mm3???Abs. Lymph - 0.9 k/mm3???Abs. Bamberg - 1.1 k/mm3???Abs. Eo - 0.0 k/mm3???Abs. Baso - 0.0 k/mm3???Neut % - 80.0 %???Lymph % - 8.2 %???Bamberg % - 10.3 %???Eos % - 0.3 %???Baso % - 0.3 %???Imm Gran - 0.9 %???Abs. Imm Gran - 0.1 k/mm3 Comprehensive Metabolic Panel (09/17/2024) ???Sodium - 138 mmol/L???Potassium - 4.1 mmol/L???Chloride - 101 mmol/L???Bicarbonate Level - 26 mmol/L???Anion Gap - 11 mmol/L???Glucose Level - 111 mg/dL???BUN - 15 mg/dL???Creatinine-Blood - 1.22 mg/dL???Estimated GFR Creatinine - 76 ML/MIN/1.73 M2???Calcium - 9.2 mg/dL???Protein, Total - 7.9 Gm/ dL???Albumin - 3.8 Gm/dL???AG Ratio - 0.9???Alkaline Phosphatase - 84 units/L???AST (SGOT) - 21 units/L???ALT (SGPT) - 14 units/L???Bilirubin, Total - 0.6 mg/dL Creatinine (09/17/2024) ???Creatinine-Blood - 1.41 mg/dL???Estimated GFR Creatinine - 64 ML/MIN/1.73 M2 Electrolytes (09/17/2024) ???Sodium - 132 mmol/L???Potassium - 4.0 mmol/L???Chloride - 96 mmol/L???Bicarbonate Level - 24 mmol/L???Anion Gap - 12 mmol/L Glucose Level (09/17/2024) ???Glucose Level - 118 mg/dL GLUCOSE POC (09/19/2024) ???Glucose, POC - 116 mg/dL H + H (09/17/2024) ???Hgb - 7.6 Gm/dL???Hct - 25.0 % HCG Plus Beta (Females and Males) (09/16/2024) ? ?BHCG (HCG & Beta) - 1 mIU/mL High??Sensitivity??Troponin T (09/16/2024) ???High Sensitivity Troponin (HSTnT) - 11 ng/L HIV STAT Screen With Reflex to Quant (09/16/2024) ???HIV STAT Screen Result - NEGATIVE HOLD LAVENDER TUBE (09/16/2024) ???Hold Lavender Top - SPECIMEN DISCARDED AFTER 24 HOURS. LDH (09/16/2024) ???LDH - 688 units/L Lyme Disease Ab Screen (09/16/2024) ???Lyme Disease Ab Screen - NEGATIVE MAGNESIUM (09/16/2024) ???Magnesium - 1.8 mg/dL T4 Free (09/16/2024) ???Free T4 - 1.67 ng/dL Troponin T, High Sensitivity (09/16/2024) ???High Sensitivity Troponin (HSTnT) - 10 ng/L TSH (09/16/2024) ???TSH - 0.81 uIU/mL Type and Screen (09/18/2024) ???Blood Type - O Positive???Antibody Screen - Negative Urinalysis w/hold for Urine Culture (09/16/2024) ???Appear/Color, Urine - LIGHT YELLOW???Specific [place], Urine - 1.021???pH, Urine - 6.0???Albumin, Urine - TRACE???Glucose, Urine - NEGATIVE???Ketones, Urine - NEGATIVE???Bilirubin, Urine - NEGATIVE???Hemoglobin, Urine - NEGATIVE???Nitrite, Urine - NEGATIVE???Leukocyte, Urine - NEGATIVE???Urobilin ogen - NORMAL? ?WBC's, Urine - 2 /HPF? ?RBC's, Urine - 1 /HPF? ?Squamous Epith - <1 /HPF? ?Hyaline Cast - 1 LPF???Mucus - SLIGHT???Hold Urine Culture - Testing available 48 hours from time of collection. You will be contacted within 72 hours with your results. Allergies (NKA means No Known Allergies) No Known Medication Allergies Problems No qualifying data available Education Materials Below is the list of Educational Leaflet Providered with your Discharge Instructions. Valuables and Belongings I fully understand and agree that [facility] accepts no responsibility for all my personal property including clothing, toilet articles, radios, jewelry, dentures, hearing aids, rings, money, or any other property that is in my possession or is brought to me after admission. I understand certain valuables may be placed in a hospital safe for a short period of time. I understand that the hospital is not liable for loss or damage due to accident, fire, or other natural occurrence while said property is in the safe. I accept full responsibility for any personal property that I keep with me, and will not hold the hospital responsible in case of loss or disappearance. I acknowledge that i have been encouraged to send valuables and belongings home. ?? Date for Pt to Sign Valuables/Belongings: 09/16/24 12:11:00 ?? Other Discharge Information ? Pulmonary Rehab Status?? Pulmonary Rehab Discharge Status?? Respiratory Rate: 18 br/min ? Common Emergency Awareness Tips IS IT A STROKE? Act FAST and Check for these signs: FACE Does the face look uneven? ARM Does one arm drift down? SPEECH Does their speech sound strange? TIME Call at any sign of stroke ?? Heart Attack Signs Chest discomfort: Most heart attacks involve discomfort in the center of the chest and lasts more than a few minutes, or goes away and comes back. It can feel like uncomfortable pressure, squeezing, fullness or pain. Discomfort in upper body: Symptoms can include pain or discomfort in one or both arms, back, neck, jaw or stomach. Shortness of breath: With or without discomfort. Other signs: Breaking out in a cold sweat, nausea, or lightheaded. Remember, MINUTES DO MATTER. If you experience any of these heart attack warning signs, call to get immediate medical attention! ?? Smoking can increase your chances of developing chronic health problems and can cause harmful effects to other family members in your house. If you smoke, you are strongly encouraged to quit. Please call [facility] [employer] Link at [phone] or [phone] ([phone]) or log in to [email or web address] for referrals to smoking cessation programs. ?? 997 Suicide & Crisis Lifeline is available 04/02 if you or someone you know needs to find a reason to keep living. By calling 281 you'll be connected to a skilled, trained counselor at a crisis center in your area. INPATIENT DISCHARGE INSTRUCTIONS SIGNATURE PAGE NATALIEPHOEBEEL Location:[facility] Registration Date and Time:09/16/2024 14:41 EST Primary Care Physician: Abiola Diamond MD, Attending Physician: Alexei SAINI, Mabel, I CHARO ESTRADA, have received the above patient education materials/instructions and have verbalized understanding. If ambulance or transport services are being used I further acknowledge being given a choice of service. ?? If you need to contact me, please call me at this number: . Patient/Lens Shaper Grinder Name: Patient/Lens Shaper Grinder Signature: Relationship to Patient: Witness Name/Signature: Date: Patient Care team information Care Team Personnel Name: Abiola Diamond MD Position: [facility] Physician - Primary Care Member Role: PCP Address: [address] Telecom: Name: Familia Goodman RN Position: S RN Member Role: Primary Care Nurse Name: Berto Trevino RN Position: S RN Member Role: Primary Care Nurse Name: Bethany Cortez RN Position: S RN Member Role: Primary Care Nurse Insurance Providers Guarantor name: EVAN Health Plan Information #: 1 Payer: [employer] Member Number: [id number] Policy Number: EVAN Group Number: [id number] Health Plan Information #: 2 Payer: [employer] Member Number: [id number] Policy Number: EVAN Group Number: NA
== END 2024-09-23 14:55 | disposition home or self-care (01) ==
LOC: HO.HMCC 13:41
PROVIDERS: PCP Internal Medicine; Visit Provider Internal Medicine
DX: R59.0 Localized enlarged lymph nodes (principal); N13.30 Unspecified hydronephrosis; C62.11 Malignant neoplasm of descended right testis; E11.9 Type 2 diabetes mellitus without complications

== ENCOUNTER → 2024-09-23 13:40 | Outpatient (BNVA) | payer OTHER, SELFPAY | PROVIDERS: PCP Internal Medicine; Visit Provider Internal Medicine | DX: R59.0 Localized enlarged lymph nodes (principal); N13.30 Unspecified hydronephrosis; E11.9 Type 2 diabetes mellitus without complications; C62.11 Malignant neoplasm of descended right testis; Z79.84 Long term (current) use of oral hypoglycemic drugs; Z90.79 Acquired absence of other genital organ(s) | CPT/HCPCS: 96127 ==

== ENCOUNTER 2024-10-21 09:23 | Outpatient (REF) | payer OTHER, SELFPAY ==
--- OUTSIDE RECORDS SUMMARY | 2024-10-21 10:06 | XMS_ITS | Continuity of Care Document ---
Author Organization [facility] Address [address] [place] [address]- Care Team Providers Care Environment Friendly Landscape Designer Name Role Phone Abiola Diamond MD Primary Care Physician [phone] [id number]s): 09/17/24 - 10/17/24 [facility] [address] [place] [address] [id number] Attending Physician: Otilia Palacios Admitting Physician: AdmtrOtilia Referring Physician: Admtr, Ar8 Encounter Type: Triage Allergies, Adverse Reactions, Alerts No Known Medication Allergies Medications Acupuncture treatments. # 18. 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 # 18. 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 Refills 0, Maintenance, Pain control., 10/13/24 11:10:00 AM EDT, Supply Start Date: 10/13/24 Status: Ordered Quantity: 18.0 Unit: each Repeat number: 1 metFORMIN 850 mg oral tablet 1 tablet = 850 mg, By Mouth, 2 times a day, Maintenance, 09/17/24 10:01:00 AM EST, Tablet, Partial fill upon patient request if the prescription is for a schedule II opioid drug. Start Date: 09/17/24 Status: Ordered Repeat number: 1 ondansetron 8 mg oral tablet 1 tablet = 8 mg, By Mouth, Every 8 hours, PRN Nausea, may cause constipation for use when starts chemotherapy, # 30 tablet, 2 Refills, Maintenance, 10/12/24 10:14:00 AM EDT, [id number], Partial fill upon patient request if the prescription is for a schedule II opioid drug., 186.7, cm, 10/05/24 10:27:00 EDT, Height, 91.4, kg, 10/01/24 15:03:00 EDT, Dry Weight Start Date: 10/12/24 Status: Ordered Quantity: 30.0 Unit: tablet Repeat number: 3 Ozempic (1 mg dose) 4 mg/3 mL subcutaneous solution = 1 mg, Subcutaneous Injection, Every week, Maintenance, 09/17/24 10:02:00 AM EST, Solution, Partial fill upon patient request if the prescription is for a schedule II opioid drug. Start Date: 09/17/24 Status: Ordered Repeat number: 1 prochlorperazine 10 mg oral tablet 1 tablet = 10 mg, By Mouth, Every 6 hours, PRN as needed for nausea/vomiting, # 60 tablet, 1 Refills, Maintenance, 10/12/24 10:14:00 AM EDT, [facility]/pharmacy #[id number], Partial fill upon patient request if the prescription is for a schedule II opioid drug., 186.7, cm, 10/05/24 10:27:00 EDT, Height, 91.4, kg, 10/01/24 15:03:00 EDT, Dry Weight Start Date: 10/12/24 Status: Ordered Quantity: 60.0 Unit: tablet Repeat number: 2 ZyPREXA 5 mg oral tablet 5 mg, 1, tablet, By Mouth, Daily at bedtime, start night of chemo before bed continue for total of 4-7 nights, # 24 tablet, Refills 1, Tot. Refills 1, Maintenance, 10/12/24 10:15:00 AM EDT, Route to Pharmacy Electronically, [facility]/pharmacy #[id number], for multiple cycles of chemo, 186.7, cm, 10/05/24 10:27:00 EDT, Height, 91.4, kg, 10/01/24 15:03:00 EDT, Dry Weight Start Date: 10/12/24 Status: Ordered Quantity: 24.0 Unit: tablet Repeat number: 2 Social History Social History Type Response Smoking Status Never (less than 100 in lifetime) entered on: 09/16/24 Sex Sex Representation Male (finding) Laboratory * Event Display: Non- Pathology Lab Results Authored Date: Radiology * Event Display: CT Scan Abdomen, Non- Authored Date: * Event Display: CT Scan Abdomen, Non- BH Authored Date: * Event Display: CT Scan Abdomen, Non- BH Authored Date: Patient Care team information Care Team Personnel Name: Abiola Diamond MD Position: [facility] Physician - Primary Care Member Role: PCP Address: [address] [place] [address]- [place] Telecom: Name: Billie Lewis RN Position: [facility] Onco RN Member Role: Primary Care Nurse Name: Familia Goodman RN Position: [facility] RN Member Role: Primary Care Nurse Name: Berto Trevino RN Position: [facility] RN Member Role: Primary Care Nurse Name: Sandrita Morel RN Position: [facility] Onco RN Member Role: Primary Care Nurse Name: Glo Banks RN Position: [facility] Onco RN Member Role: Primary Care Nurse Name: Bethany Cortez RN Position: [facility] RN Member Role: Primary Care Nurse Name: Karo Bain MD, Alexander Dodson Position: [facility] Physician - Oncology Member Role: Lifetime Consulting Physician Address: [address] [place] [address] Hem/[place] [address]- [place] Telecom: Name: Salma Faye RN Position: [facility] Onco RN Member Role: Primary Care Nurse Care Team Related Persons Name: JESSICA ESTRADA Insurance Providers Guarantor name: EVAN Health Plan Information #: 1 Payer: [employer] HMO Member Number: NA Policy Number: NA Group Number: NA
--- OUTSIDE RECORDS SUMMARY | 2024-10-21 10:06 | XMS_ITS | Continuity of Care Document ---
Author Organization [facility] ter Address [address] [place] [address]- Care Team Providers Care [address] [address] Magistrate Name Role Phone Abiola Daimond MD Primary [id number] 09/20/[facility] - 10/20/[address] [address]- Attending Physician: Not on Staff, Attending MD Admitting Physician: Not on Staff, Admitting MD Referring Physician: Not on Staff, Referring MD Encounter Type: Pre-Outpt Allergies, Adverse Reactions, Alerts No Known Medication Allergies Medications Acupuncture treatments. # 18. 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 # 18. 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 Refills 0, Maintenance, Pain control., 10/13/24 11:10:00 AM EDT, Supply Start Date: 10/13/24 Status: Ordered Quantity: 18.0 Unit: each Repeat number: 1 lidocaine-prilocaine 2.5%-2.5% topical cream 1 applicator, Topically, Once, apply 60 mins prior to treatment, # 30 Gm, 1 Refills, Soft Stop, 10/20/24 4:22:00 PM EDT, [facility]/pharm[facility] #[id number], Partial fill upon patient request if the prescription is fora schedule II opioid drug., 1 applicator Topically Once,Instr:apply 60 mins prior to treatment, 186.7, cm, 10/20/24 15:28:00 EDT, Height, 86.9, kg, 10/19/24 6:26:00 EDT, Dry Weight Start Date: 10/20/24 Status: Ordered Quantity: 30.0 Unit: g Repeat number: 2 metFORMIN 850 mg oral tablet 1 tablet [...] 2 Refills, Maintenance, 10/12/24 10:14:00 AM EDT, [facility]/pharmacy #[id number], Partial fill upon patient request if [...] 1 Refills, Maintenance, 10/12/24 10:14:00 AM EDT, [facility]/pharmacy #[id number], Partial fill upon patient request if [...] 10:15:00 AM EDT, Route to Pharmacy Electronically, [id number], for multiple cycles of chemo, 186.7, cm, 10/05/24 10:27:00 EDT, Height, 91.4, kg, 10/01/24 15:03:00 EDT, Dry Weight Start Date: 10/12/24 Status: Ordered Quantity: 24.0 Unit: tablet Repeat number: 2 Social History Social History Type Response Smoking Status Never (less than 100 in lifetime) entered on: 09/16/24 Sex Sex Representation Male (finding) Patient Care team information Care Team Personnel Name: Abiola Diamond MD Position: [facility] Physician - Primary Care Member Role: PCP Address: [address] [place] [address]- Telecom: Name: Billie Lewis RN Position: S Onco RN Member Role: Primary Care Nurse Name: Familia Goodman RN Position: S RN Member Role: Primary Care Nurse Name: Berto Trevino RN Position: S RN Member Role: Primary Care Nurse Name: Sandrita Morel RN Position: [facility] Onco RN Member Role: Primary Care Nurse Name: Glo Banks RN Position: [facility] Onco RN Member Role: Primary Care Nurse Name: Sd Gongora RN Position: S RN Member Role: Primary Care Nurse Name: Bethany Cortez RN Position: S RN Member Role: Primary Care Nurse Name: Karo Bain MD, Alexander Dodson Position: [facility] Physician - Oncology Member Role: Lifetime Consulting Physician Address: [address] [place] [address] Hem/[place] [address]- [place] Telecom: Name: Salma Faye RN Position: [facility] Onco RN Member Role: Primary Care Nurse Care Team Related Persons Name: JESSICA ESTRADA Insurance Providers Guarantor name: EVAN Health Plan Information #: 1 Payer: [employer] HMO Member Number: EVAN Policy Number: EVAN Group Number: EVAN
--- OUTSIDE RECORDS SUMMARY | 2024-10-21 10:06 | XMS_ITS | Continuity of Care Document ---
Author Organization [facility] ter Address [address] [place] [address]- Care Team Providers Care Kindergarten Paraprofessional Name Role Phone Abiola Diamond MD Primary Care Physician Encounter [facility] Date(s): 10/19/24 - 10/19/[address] [address]- Discharge Disposition: A-D/C Home Attending Physician: Alexander Reyes MD Admitting Physician: Alexander Reyes MD Referring Physician: Alexander Reyes MD Encounter Type: Disch Daystay Allergies, Adverse Reactions, Alerts No Known Medication [...] 1 Refills, Maintenance, 10/12/24 10:14:00 AM EDT, [facility]/pharmacy #[id number], Partial fill upon patient request [...] 10:15:00 AM EDT, Route to Pharmacy Electronically, [facility]/pharmacy #[id number], for multiple cycles of chemo, 186.7, cm, 10/05/24 10:27:00 EDT, Height, 91.4, kg, 10/01/24 15:03:00 EDT, Dry Weight Start Date: 10/12/24 Status: Ordered Quantity: 24.0 Unit: tablet Repeat number: 2 Results Radiology Reports * Exam Date Time Procedure Performing Provider Status 10/19/24 7:49 AM IR End of Case Report Auth (Verified) IR End of Case Report * Exam Date Time Procedure Performing Provider Status 10/19/24 7:49 AM IR Venous Access Device Insertion Auth (Verified) Notes: (IR Venous Access Device Insertion) Reason For Exam: port insert;Other: IR Venous Access Device Insertion Patient: CHARO ESTRADA Study Date: 10/19/2024 Performing: Jose D Emery MD Referring: : 1980 Age: 43 Gender: MALE Pre-procedure diagnosis and Indication: metastatic testicular cancer needs chemotherapy Exam: Prior to the procedure, the patient was seen and the nature of the procedure explained along with its attendant risks and benefits to . . The patient underwent a pre-anesthesia assessment. On completion of this it was determined the patient is suitable for sedation. The patient arrived in IR room 1 for a portacath insertion PROCEDURE: The patient was positioned supine and secured with arm boards. The access site was evaluated with ultrasound and images archived The site was prepped with chloraprep and draped in the usual sterile fashion. Patient received moderate sedation administered under my direct supervision.. Local anesthetic was given and The vessel was identified using, ultrasound access was gained into the right internal jugular vein using a regular micropuncture set and A pre-pectoral subcutaneous Port pocket was formed in the right chest catheter was tunneled. The catheter was cut down to 24 cm and inserted. The catheter was tested with good flow and return. No leaks were noted. the port was left accessed The Catheter was flushed with heparinized saline 2u/ml The port was secured into the pocket using 3-0 prolene suture. The pocket was closed using and and tissue adhesive was used on the access site. The port was left accessed with an appropriately sized joel needle. The access was tested and flushed as noted above. Catheter used: Medcomp DIGNITY PORT 6.6F - Qty: 1 Each Part #: [id number] GTIN: [id number] Lot #: [id number] Exp Date: 2028-12-12 The sterile field was maintained throughout the procedure and patient tolerated the procedure well with no complications of the procedure estimated blood loss was minimal Specimens/samples: no specimens or samples were sent for this procedure Patient transferred to, Pre / Post Procedure Unit Post procedure instructions sent in envelope with the patient Impression: Satisfactory ultrasound and fluoroscopically guided placement of right chest port with the catheter tip at the SVC/RA junction. A follow-up chest x-ray , is not needed. The catheter was placed and position was verified under fluoroscopy. The catheter is ready to use now. patient tolerated the procedure well with no complications of the procedure port left accessed ready to use now Access the port using sterile technique including use of sterile gloves, alcohol-based skin preparation and face mask/ shield.Should port malfunction develop please contact this service directly rather than having a diagnostic study performed elsewhere. This is not necessary. Fluoroscopy time and dose Total Fluoro Time: 0.4 mins Total dose 7 mGy Total DAP 91.7 - ?Gy/m2 No contrast was used for this procedure Local Anesthetic Lidocaine 1% w/ 4.2% sodium bicarbonate 10 ml's SQ Lidocaine 1% w/ 1:100,000 epinephrine and 4.2% sodium bicarbonate 20 ml's SQ Moderate sedation was provided From 09:06:26 to 08:47:01 Moderate Sedation Agent Dose Route Time By Fentanyl 50 mcg IV 09:06:23 CB Versed 1 mg IV 09:06:26 CB Fentanyl 25 mcg IV 09:16:24 CB Versed 0.5 mg IV 09:16:28 CB Fentanyl 25 mcg IV 09:27:08 CB Versed 0.5 mg IV 09:27:12 CB Signed By Jose D Emery MD On 10/19/2024 8:58:46 AM Jose D Emery MD Dictated By: Jose D Emery MD Dictated Date/Time: 10/19/24 7:49 am Reviewed By: Jose D Emery MD Signed By: Jose D Emery MD Signed Date/Time: 10/19/24 7:49 am Transcribed By: [facility] Transcribed Date/Time: 10/19/24 7:49 am Vital Signs Most recent to oldest [Reference Range]: 1 2 3 Height 186.7 cm (10/19/24 6:33 AM) 186.7 cm (10/19/24 6:30 AM) 186.7 cm (10/19/24 6:26 AM) Weight 86.9 kg (10/19/24 6:30 AM) 86.9 kg (10/19/24 6:26 AM) Oxygen Saturation [94-100 %] 100 % (10/19/24 6:33 AM) Pulse Rate [55-90 bpm] 109 bpm *H* (10/19/24 6:33 AM) Blood Pressure [90-138/55-84 mm Hg] 117/78mm Hg (10/19/24 6:33 AM) Respiratory Rate [16-30 br/min] 18 br/min (10/19/24 6:33 AM) Temperature [96.8-100.4 DegF] 97.8 DegF (10/19/24 6:33 AM) Mode of Delivery (Oxygen) Room air (10/19/24 6:33 AM) Blood pressure sites Arm, right (10/19/24 6:33 AM) Temperature Route Temporal (10/19/24 6:33 AM) Dry Weight 86.9 kg (10/19/24 6:26 AM) Social History Social History Type Response Smoking Status Never (less than 100 in lifetime) entered on: 09/16/24 Sex Sex Representation Male (finding) Hospital Progress note * Sd Gongora RN: PERFORM, SIGN, VERIFY Event Display: Progress Note Hospital Authored Date: Patient: CHARO ESTRADA Age: 43 years Sex: Male : 1980 Associated Diagnoses: None Author: Sd Gongora RN Findings Narrative/Incidental Pt returned to unit via stretcher, vitals stable, R chest/neck DSDs CDI, tolerating PO diet, ambulating now with steady gait, able to teach back d.c instructions, ambulated off unit for d.c home.. * Sd Gongora RN: PERFORM, SIGN, VERIFY Event Display: Progress Note Hospital Authored Date: [id number] Patient: CHARO ESTRADA Age: 43 years Sex: Male : 1980 Associated Diagnoses: None Author: Sd Gongora RN Findings Narrative/Incidental Pt A/Ox4, NPO since midnight, daystay assessment home med review, and pre procedure checklist charted in CIS, 22g IV placed, blood drawn and sent to lab, vitals stable.. Note * Sd Gongora RN: PERFORM Event Display: Discharge/Transfer Note Hospital Authored Date: [id number] Nursing Discharge Note Entered On: 10/19/2024 10:06 EDT Performed On: 10/19/2024 10:05 EDT by Sd Gongora RN Nursing Discharge Note 2 Discharge Time : 10/19/2024 10:05 EDT Discharge Level of Care at Discharge : Home/Skilled Nursing/Foster Care Patient Left Unit Via : Ambulatory Patient Accompanied Off Unit with : Significant other DC Instructions Provided & Signed by Pt : Yes Patient Understands D/C Instructions : Yes Patient Instructions Discharge Signed : Yes Did Pt have Specialty Bed or Wound Vac : No Sd Gongora RN - 10/19/2024 10:05 EDT Patient Care team information Care Team Personnel Name: Abiola Diamond MD Position: [facility] Physician - Primary Care Member Role: PCP Address: [address] [place], [place] [address] Telecom: Name: Billie Lewis RN Position: [facility] Onco RN Member Role: Primary Care Nurse Name: Familia Goodman RN Position: S RN Member Role: Primary Care Nurse Name: Berto Trevino RN Position: [facility] RN Member Role: Primary Care Nurse Name: Sandrita Morel RN Position: [facility] Onco RN Member Role: Primary Care Nurse Name: Glo Banks RN Position: [facility] Onco RN Member Role: Primary Care Nurse Name: Sd Gongora RN Position: [facility] RN Member Role: Primary Care Nurse Name: Bethany Cortez RN Position: [facility] RN Member Role: Primary Care Nurse Name: Karo Bain MD, Alexander Dodson Position: [facility] Physician - Oncology Member Role: Lifetime Consulting Physician Address: [address] [place] [address] Hem/[place] [address]- Telecom: Name: Salma Faye RN Position: [facility] Onco RN Member Role: Primary Care Nurse Care Team Related Persons Name: JESSICA ESTRADA Insurance Providers Guarantor name: EVAN Health Plan Information #: 1 Payer: [employer] Member Number: [id number] Policy Number: NA Group Number: [id number] Health Plan Information #: 2 Payer: [employer] Member Number: [id number] Policy Number: NA Group Number: NA
[2024-10-21 13:42] LABS: Basophils Percent Auto 0.6 % (0-2); Eosinophils Absolute Auto 0.1 X10*3/uL (0.0-0.4); Eosinophils Percent Auto 1.6 % (0-4); Hematocrit 25.9 % (42.0-52.0); Hemoglobin 8.2 g/dl (14.0-18.0); Imm Gran Abs Auto 0.03 X10*3/uL (0.00-0.03); Lymphocytes Absolute Auto 0.4 X10*3/uL (1.2-4.9); Lymphocytes Percent Auto 13.5 % (20-40); MANUAL DIFF FLAG SCAN; Mean Corpuscular HGB Conc 31.7 g/dl (31.0-36.0); Mean Corpuscular Hemoglobin 24.8 pg (27.0-33.0); Mean Corpuscular Volume 78.2 fL (80.0-98.0); Mean Platelet Volume 9.4 fL (9.4-12.4); Neutrophils Absolute Auto 2.6 x10*3/uL (2.0-8.3); Neutrophils Percent Auto 82.3 % (45-73); Platelet Count 235 X10*3/uL (160-400); Red Blood Count 3.31 X10*6/uL (4.60-5.80); SCAN SMEAR FLAG 1; White Blood Count 3.1 X10*3/uL (4.8-10.8)
[2024-10-21 13:51] LABS: Estimated Average Glucose 148 mg/dL; Hemoglobin A1C 113.3859 umol/L; Hemoglobin A1c % 6.8 % (<6.0); Total Hemoglobin (HGBA1C) 2217.6472 umol/L
[2024-10-21 14:03] LABS: SLIDE REVIEW VERIFIED
[2024-10-21 14:05] LABS: Alanine Aminotransferase 14 U/L (0-40); Albumin Level 3.5 g/dL (3.5-5.0); Alkaline Phosphatase 80 U/L (39-117); Anion Gap 9 (12-20); Aspartate Amino Transferase 20 U/L (5-37); Bilirubin Total 0.4 mg/dL (0.0-1.0); Blood Urea Nitrogen 19 mg/dL (9-16); Calcium 8.8 mg/dL (8.4-10.2); Carbon Dioxide 26 mmol/L (22-29); Chloride 106 mmol/L (96-108); Cholesterol 129 mg/dL (<200); Estimated Glomerular Filt Rate > 60; Glucose Fasting 141 mg/dL (60-99); HDL Cholesterol 42 mg/dL (>40); LDL Cholesterol Calculated 72 mg/dL (<100); Potassium 3.8 mmol/L (3.3-5.1); Sodium 137 mmol/L (135-145); Total Protein 7.1 g/dL (6.5-8.0); Triglycerides 75 mg/dL (<150)
[2024-10-21 14:08] LABS: Creatinine Urine 140.69 mg/dL; Microalbum/Creatinine Ratio Ur 56.8 ug/mg cr (<30)
== END 2024-10-21 09:24 | disposition home or self-care (01) ==
LOC: HO.HMGCLDS 09:23
PROVIDERS: PCP Internal Medicine; Visit Provider Internal Medicine
DX: E11.9 Type 2 diabetes mellitus without complications (principal); C62.11 Malignant neoplasm of descended right testis
CPT/HCPCS: 36415; 80053; 80061; 82043; 82570; 83036; 85025

== ENCOUNTER 2025-01-04 09:45 | Outpatient (AMB) | payer OTHER, SELFPAY ==
[2025-01-04 10:10] VITALS: BP 120/76; PULSE 90; RESP 18; TEMP 36.9; O2SAT 95; BMI 26.2
--- NOTE | 2025-01-04 10:10 | A.OFFPC_ITS ---
Vital Signs 01/04/25 10:10 Height 6 ft 3 in Weight 210 lb BMI 26.2 BP 120/76 Blood Pressure Location Lt brachial Position Sitting Respiration 18 Pulse 90 Pulse Source Pulse Oximeter Temp 98.4 F Temp Source Oral Pulse Oximetry (%) 95 Oxygen Delivery Method Room Air Intake Visit Reasons: Annual PE Intake Note: Pt is here today for PE. Allergies No Known Allergies (No Known Allergies*) Allergy (Verified 01/04/25 10:12) Medication List - Last Reconciled 01/04/25 by Abiola Diamond MD blood sugar diagnostic (OneTouch Ultra Test strips) tid [facility] blood-glucose meter (Glu MobileTouch Ultra2 Meter) As directed blood-glucose sensor ([employer] [place] G7 Sensor device) As directed lancets (Glu MobileTouch Delica Plus Lancet) Test blood sugar once a day lidocaine 5% 1 patch topical DAILY metformin 850 mg PO BID pen needle, diabetic (Comfort EZ Pen [place]) Use to inject insulin once a day pen needle, diabetic (Stefanie Pen Needle) Use to inject insulin once a day Tobacco use date assessed: 01/04/25 Dental Screening Dental Screen Date: 09/23/24 HPI Annual PE HPI Details Patient presents for physical. 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 Patient is established with oncology and urology. He complains of bilateral flank pain for the last 3 weeks. He has been seeing urologist every week and was treated for UTI twice. He completed 2nd treatment 4 days ago. Patient denies any dysuria fever chills nausea vomiting. He has been monitoring his blood glucose with continuous glucose monitoring with the readings between 122 and 200 after eating high carb load meal. 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 Cognitive needs: No Hearing needs: No Vision needs: No Questionnaire Thrive Questionnaire Date Thrive assessed: 09/21/24 I am a: Patient What is your living situation today?: I have a steady place to live Within the past 12 months, did the food you bought not last and you didn't have the money to get more?: Never true Within the past 12 months, did you worry whether your food would run out before you got money to buy more?: Never true Do you have trouble paying for medicines?: No Do you have trouble getting transportation to medical appointments?: No Do you have trouble paying your heating and electricity bill?: No Do you have trouble taking care of your child, family member or friend?: No Do you have trouble with day-to-day activities such as bathing, preparing meals, shopping, managing finances, etc.?: No Are you currently unemployed and looking for a job?: No Are you interested in more education?: No Please select the resources that you would like help with: None Currently or been in a relationship where the following occur: No concerns reported THRIVE Score: 0 MARIYA-7 AMB Questionnaire MARIYA-7 Date MARIYA - 7 assessed: 09/23/24 Source: Developed by Drs. Noel Little, Lucy Santiago, Grzegorz Vasques and colleagues, with an educational ita from [employer]. Review of Systems Const All systems reviewed & are unremarkable except as noted in HPI and below Eyes Reports no additional complaints ENT Reports no additional complaints Card Reports no additional complaints Resp Reports no additional complaints GI Reports no additional complaints Reports no additional complaints Physical exam (Primary Care) Vital Signs: Last Vital Signs Temp 98.4 F 01/04/25 10:10 Pulse 90 01/04/25 10:10 Resp 18 01/04/25 10:10 BP 120/76 01/04/25 10:10 Pulse Ox 95 01/04/25 10:10 Oxygen Delivery Method Room Air 01/04/25 10:10 BMI result Body Mass Index 26.2 Tobacco/Smoking Status: Tobacco use Status Tobacco use date assessed 01/04/25 01/04/25 10:17 Patient Tobacco Use Status Never used Tobacco 01/04/25 10:17 e-Cigarette/Vaping Use Never Used 01/04/25 10:17 Thrive Assessment: Date of Thrive Assessment Date Thrive assessed 09/21/24 01/04/25 10:17 Currently or been in a relationship where the following occur: No concerns reported Const General: no acute distress HENWA Head: Yes normal to inspection Ears: hearing grossly normal bilaterally Throat: Yes posterior oropharynx normal Eyes General: appearance normal, both eyes and all related structures Neck Neck: Yes no lymphadenopathy and Yes supple Resp Effort & Inspection: normal respiratory effort Auscultation: clear to auscultation bilaterally Cardio Rhythm: regular rhythm Heart sounds: S1 normal heart sound present and S2 normal heart sound present GI Other: Bilateral nephrostomy tubes in place Inspection: Yes normal to inspection Palpation (GI): Soft to palpation Percussion: Yes normal to percussion Auscultation: normal bowel sounds Coding Level of Care Code Est Pt Prev Care 40-64y(12157) Diagnoses UTI (urinary tract infection) N39.0 Type 2 diabetes mellitus E11.9 Seminoma of descended right testis C62.11 Assessment & Plan Assessment & Plan (1) UTI (urinary tract infection): Comment: Bilateral nephrostomy for obstructive hydronephrosis 09/2024 Code(s): N39.0 - Urinary tract infection, site not specified Category: Medical Plan: Check UA and culture after the treat follow-up with urology (2) Type 2 diabetes mellitus: Code(s): E11.9 - Type 2 diabetes mellitus without complications Category: Medical Plan: A1c is 6.8, ADA diet increase physical activity discussed with the patient increase metformin to 1000 mg twice a day. 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, E11.9 - Type 2 diabetes mellitus without complications Microalbumin, Random (w Creat) 3 Months C62.11 - Malignant neoplasm of descended right testis, C79.00 - 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, E11.9 - Type 2 diabetes mellitus without complications UA w Microscopic Today N39.0 - Urinary tract infection, site not specified Lipid Panel 3 Months C62.11 - Malignant neoplasm of descended right testis, C79.00 - 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
--- OUTSIDE RECORDS SUMMARY | 2025-01-04 10:36 | XMS_ITS | Clinical Summary ---
Author Organization [address] [facility] Address [address] [place] [address] Phone Care Team Providers Care Developer Relations Manager Name Role Phone Abiola Diamond MD Primary Care Provider [phone] Encounters Date Type Department Care Team Description 12/24/2024 Lab Requisition [facility] - Main Lab [address] [facility] [place] [address] Vincent Ortiz MD Malignant neoplasm of descended right testis (CMS/HCC V24, CMS/HCC V28) from Last 3 Months Social History Tobacco Use Types Packs/Day Years Used Date Smoking Tobacco: Never Assessed Sex and Gender Information Value Date Recorded Sex Assigned at Not on file Legal Sex Male 1:51 PM EDT Gender Identity Not on file Sexual Orientation Not on file Plan of Treatment Health Maintenance Due Date Last Done Comments COVID-19 Vaccine (#1) 1986 DTaP,Tdap,and Td Vaccines (1 - Tdap) 2000 Hepatitis B Vaccines (1 of 3 - 19+ 3-dose series) 2000 Pneumococcal Vaccine: Pediat rics (0 to 5 Years) and At-Risk Patients (6 to 64 Years) (1 of 2 - PCV) 2000 Cholesterol Screening (Lipid Panel) 12/25/2024 Depression Screening 12/25/2024 HIV Screening 12/25/2024 Hepatitis C Screening 12/25/2024 Social Influencers of Health Screening 12/25/2024 Influenza Vaccine (Season Ended) 2025 HIB Vaccines Aged Out No longer eligi ble based on patient's age to complete this topic HPV Vaccines Aged Out No longer eligi ble based on patient's age to complete this topic Hepatitis A Vaccines Aged Out No long er eligible based on patient's age to complete this topic IPV Vaccines Aged Out No longer eligi ble based on patient's age to complete this topic MMR Vaccines Aged Out No longer eligi ble based on patient's age to complete this topic Meningococcal ACWY Vaccine Aged Out N o longer eligible based on patient's age to complete this topic Meningococcal B Vaccine Aged Out No l onger eligible based on patient's age to complete this topic RSV Immunization Patients Un paola 20 months Aged Out No longer eligible b ased on patient's age to complete this topic Varicella Vaccines Aged Out No longer eligible based on patient's age to complete this topic Procedures Procedure Name Priority Date/Time Associated Diagnosis Comments LACTATE DEHYDROGENASE Routine 12/24/2024 10:14 AM EDT Malignant neoplasm of descended right testis ([facility] V24, [facility] V28) from Last 3 Months Results * Lactate dehydrogenase (12/24/2024 10:14 AM EDT) LDH 149 120 - 246 unit/L LAB CHEMISTRY METHOD 12/24/2024 3:04 PM EDT [facility] Blood Venous blood specimen / Unknown 12/24/2024 10:14 AM EDT 12/24/2024 2:15 PM EDT us Vincent Ortiz MD LAB BLOOD ORDERABLES Final Result [facility] [address] [place] [address], from Last 3 Months Insurance [facility] Care Teams Developer Relations Manager Relationship Specialty Start Date End Date Abiola Diamond MD [address] [place] [address] PCP - General Internal Medicine 12/24/24
== END 2025-01-04 11:11 | disposition home or self-care (01) ==
LOC: HO.HMCC 09:46
PROVIDERS: PCP Internal Medicine; Visit Provider Internal Medicine
DX: Z00.00 Encounter for general adult medical examination without abnormal findings (principal); N39.0 Urinary tract infection, site not specified; E11.9 Type 2 diabetes mellitus without complications; C62.11 Malignant neoplasm of descended right testis

== ENCOUNTER 2025-01-04 09:45 | Outpatient (REF) | payer OTHER, SELFPAY ==
[2025-01-04 12:52] LABS: Appearance Urine Clear; Color Urine Yellow; Glucose Urine UA Negative (Negative); Leukocyte Esterase Urine Moderate (2+) (Negative); Nitrite Urine Negative (Negative); PH 5.5 (5.0-9.0); UMIC TRIGGER UA YES; Urine Blood Small (1+) (Negative); Urine Ketones Negative (Negative); Urine Protein Trace mg/dL (Neg-Trace)
[2025-01-04 13:00] LABS: Bacteria Urine None Seen (None Seen); Hyaline Casts Urine 0-2 /LPF (0-2); Squamous Epithelial Cell Urine 0-2 /HPF (0-2); WBC Urine >50 /HPF (0-5)
== END 2025-01-04 09:46 | disposition home or self-care (01) ==
LOC: HO.HMGCLDS 09:45
PROVIDERS: PCP Internal Medicine; Visit Provider Internal Medicine
DX: N39.0 Urinary tract infection, site not specified (principal); E11.9 Type 2 diabetes mellitus without complications; C62.11 Malignant neoplasm of descended right testis; C77.2 Secondary and unspecified malignant neoplasm of intra-abdominal lymph nodes; Z90.79 Acquired absence of other genital organ(s); Z92.21 Personal history of antineoplastic chemotherapy; Z93.6 Other artificial openings of urinary tract status
CPT/HCPCS: 81001; 87086

== ENCOUNTER 2025-04-07 08:47 | Outpatient (AMB) | payer OTHER, SELFPAY ==
[2025-04-07 08:57] VITALS: BP 124/72; PULSE 75; RESP 18; TEMP 36.9; O2SAT 97; BMI 29.4
--- NOTE | 2025-04-07 08:57 | A.OFFPC_ITS ---
Vital Signs 04/07/25 08:57 Height 6 ft 3 in Weight 235 lb BMI 29.4 BP 124/72 Blood Pressure Location Rt brachial Position Sitting Respiration 18 Pulse 75 Pulse Source Pulse Oximeter Temp 98.4 F Temp Source Oral Pulse Oximetry (%) 97 Oxygen Delivery Method Room Air Intake Visit Reasons: 3 month follow up Intake Note: Pt is here today for 3 months follow up visit. Allergies No Known Allergies (No Known Allergies*) Allergy (Verified 04/07/25 09:00) Medication List - Last Reconciled 04/07/25 by Abiola Diamond MD blood sugar diagnostic (RevinateTouch Ultra Test strips) tid [facility] blood-glucose meter (RevinateTouch Ultra2 Meter) As directed blood-glucose sensor ([employer] G7 Sensor device) As directed lancets (RevinateTouch Delica Plus Lancet) Test blood sugar once a day lidocaine 5% 1 patch topical DAILY metformin 1,000 mg PO BID pen needle, diabetic (Comfort EZ Pen [place]) Use to inject insulin once a day pen needle, diabetic (Stefanie Pen Needle) Use to inject insulin once a day Tobacco use date assessed: 04/07/25 Dental Screening Dental Screen Date: 09/23/24 HPI 3 month follow up HPI Details Patient presents for the follow-up of type 2 diabetes. He reports fasting blood glucose usually around 100 except when he is not compliant with ADA diet. Patient reports chronic insomnia. He completed chemotherapy for metastatic seminoma and has persistent anemia requiring 2 blood transfusions in December and January. Patient is established with [facility] Oncology and 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 1. Little interest or pleasure in doing things: not at all 2. Feeling down, depressed, or hopeless: not at all 3. Trouble falling or staying asleep, or sleeping too much: not at all 4. Feeling tired or having little energy: not at all 5. Poor appetite or overeating: not at all 6. Feeling bad about yourself - or that you are a failure or have let yourself or your family down: not at all 7. Trouble concentrating on things, such as reading the newspaper or watching television: not at all 8. Moving or speaking so slowly that other people could have noticed. Or the opposite - being so fidgety or restless that you have been moving around a lot more than usual: not at all 9. Thoughts that you would be better off or of hurting yourself in some way: not at all Total score: 0 Depression Screening Interpretation: Negative Depression Screening Done: Yes Source: Developed by Drs. Noel Little, Lucy Santiago, Grzegorz Vasques and colleagues, with an educational ita from [employer]. Thrive Questionnaire Date Thrive assessed: 09/21/24 I am a: Patient What is your living situation today?: I have a steady place to live Within the past 12 months, did the food you bought not last and you didn't have the money to get more?: Never true Within the past 12 months, did you worry whether your food would run out before you got money to buy more?: Never true Do you have trouble paying for medicines?: No Do you have trouble getting transportation to medical appointments?: No Do you have trouble paying your heating and electricity bill?: No Do you have trouble taking care of your child, family member or friend?: No Do you have trouble with day-to-day activities such as bathing, preparing meals, shopping, managing finances, etc.?: No Are you currently unemployed and looking for a job?: No Are you interested in more education?: No Please select the resources that you would like help with: None Currently or been in a relationship where the following occur: No concerns reported THRIVE Score: 0 MARIYA-7 AMB Questionnaire MARIYA-7 Date MARIYA - 7 assessed: 09/23/24 Feeling nervous, anxious, or on edge: 0 = Not at all Not being able to stop or control worryin = Not at all Worrying too much about different things: 0 = Not at all Trouble relaxin = Not at all Being so restless that it is hard to sit still: 0 = Not at all Becoming easily annoyed or irritable: 0 = Not at all Feeling afraid as if something awful might happen: 0 = Not at all Total MARIYA-7 score (0-4 normal; 5-9 mild; 10-14 moderate; 15-21 severe): 0 Source: Developed by Drs. Noel Little, Lucy Santiago, Grzegorz Vasques and colleagues, with an educational ita from [employer]. Review of Systems Const All systems reviewed & are unremarkable except as noted in HPI and below Eyes Reports no additional complaints ENT Reports no additional complaints Card Reports no additional complaints Resp Reports no additional complaints GI Reports no additional complaints Reports no additional complaints Physical exam (Primary Care) Vital Signs: Last Vital Signs Temp 98.4 F 04/07/25 08:57 Pulse 75 04/07/25 08:57 Resp 18 04/07/25 08:57 BP 124/72 04/07/25 08:57 Pulse Ox 97 04/07/25 08:57 Oxygen Delivery Method Room Air 04/07/25 08:57 BMI result Body Mass Index 29.4 Tobacco/Smoking Status: Tobacco use Status Tobacco use date assessed 04/07/25 04/07/25 09:03 Patient Tobacco Use Status Never used Tobacco 04/07/25 09:03 e-Cigarette/Vaping Use Never Used 04/07/25 09:03 PHQ-9: PHQ-9 Score PHQ-9: Total score 0 04/07/25 09:03 Depression Screening Interpretation: Negative Thrive Assessment: Date of Thrive Assessment Date Thrive assessed 09/21/24 04/07/25 09:03 Currently or been in a relationship where the following occur: No concerns reported Const General: no acute distress HENMT Head: Yes normal to inspection Throat: Yes posterior oropharynx normal Eyes General: appearance normal, both eyes and all related structures Neck Neck: Yes supple Resp Effort & Inspection: normal respiratory effort Auscultation: clear to auscultation bilaterally Cardio Rhythm: regular rhythm Heart sounds: S1 normal heart sound present and S2 normal heart sound present GI Inspection: Yes normal to inspection Palpation (GI): Soft to palpation Percussion: Yes normal to percussion Extrem Other: Diabetic foot exam skin is intact monofilament sensation intact bilaterally Results AMB Hemoglobin A1c AMB Hemoglobin A1c 6.6 % Last Edit by SHARON Alvarado on 04/07/25 09:3 8 Coding Level of Care Code Est Pt Level 4 (92829) Diagnoses Type 2 diabetes mellitus E11.9 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 C79.00 Assessment & Plan Assessment & Plan (1) Type 2 diabetes mellitus: Code(s): E11.9 - Type 2 diabetes mellitus without complications Category: Medical Plan: A1c is 6.6, ADA diet regular exercise weight loss discussed with the patient continue metformin follow-up in 4 months, patient will have fasting blood work including lipid profile today (2) 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: Comment: DXD 09/2024, S/P chemo at [facility] completed 12/2024, f/u PVU Code(s): C79.00 - 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 Category: Medical Plan: Follow-up with urology and oncology Orders: Orders IRON PROFILE Today C62.11 - Malignant neoplasm of descended right testis, C79.00 - 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, E11.9 - Type 2 diabetes mellitus without complications Microalbumin, Random (w Creat) Today C62.11 - Malignant neoplasm of descended right testis, C79.00 - 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, E11.9 - Type 2 diabetes mellitus without complications Lipid Panel 4 Months E11.9 - Type 2 diabetes mellitus without complications Lipid Panel Today C62.11 - Malignant neoplasm of descended right testis, C79.00 - 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, E11.9 - Type 2 diabetes mellitus without complications Comprehensive [place]. Panel Fast Today C62.11 - Malignant neoplasm of descended right testis, C79.00 - Secondary malignant neoplasm of unspecified kidney and re nal pelvis, E11.9 - Type 2 diabetes mellitus without complications Vitamin B12 and Folate Today C62.11 - Malignant neoplasm of descended right testis, C79.00 - 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, E11.9 - Type 2 diabetes mellitus without complications Complete Blood Count Auto Diff Today C62.11 - Malignant neoplasm of descended right testis, C79.00 - 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, E11.9 - Type 2 diabetes mellitus without complications Comprehensive [place]. Panel Fast 4 Months E11.9 - Type 2 diabetes mellitus without complications Complete Blood Count Auto Diff 4 Months E11.9 - Type 2 diabetes mellitus without complications Hemoglobin A1c 4 Months E11.9 - Type 2 diabetes mellitus without complications Microalbumin, Random (w Creat) 4 Months E11.9 - Type 2 diabetes mellitus without complications AMB Hemoglobin A1c Today Z13.9 - Encounter for screening, unspecified
--- OUTSIDE RECORDS SUMMARY | 2025-04-07 09:59 | XMS_ITS | Clinical Summary ---
Author Organization [facility] Address [address] [place] [address] Phone Care Team Providers Care Hydramatic Specialist Name Role Phone Abiola Diamond MD Primary Care Provider [phone] Self-Referred, Patient Unavailable Unavailab Alexander Rodriguez MD Unavailabl e Medications metFORMIN (GLUCOPHAGE) 850 MG tablet Take 850 mg by mouth 2 (two) times a day. 5 Active LANTUS SOLOSTAR U-100 INSULIN 100 unit/mL (3 mL) InPn injection pen Inject 20 Units under the skin as directed. Take on chemo days when insulin levels spike 5 Active Medication-Free Text Seed DS-01 Daily Synbiotic (Probiotic and prebiotic formulation): Take 1 capsule by mouth daily as needed Active Social History Tobacco Use Types Packs/Day Years Used Date Smoking Tobacco: Never Assessed Child or Family Care Answer Date Record ed Do you have problems with on e of the following making it difficult for you to work, study, or receive health care? No 11/06/2024 Education Answer Date Recorded Are you interested in help w ith more adult education (for example, completing high school, GED, job training, learning the [place] language, technical skills, or developing parenting skills)? No 11/06/2024 Are you concerned about learning? Not on file 11/06/2024 No 11/06/2024 Yes 11/06/2024 Food Answer Date Recorded Within the past 6 months we worried whether our food would run out before we got money to buy more. Never True 11/06/2024 Within the past 6 months the food we bought just didn't last and we didn't have enough money to get more. Never True Residential Stability Answer Date Recor ded What is your housing situation today? I have carol ann dietrich 11/06/2024 How many times have you move d in the past 12 months? Zero (I did not move) 11/06/2024 Paying for Meds Answer Date Recorded Do you have trouble paying for medicines? No 11/06/2024 Paying Utility Bills Answer Date Record ed Do you have trouble paying your heating or elect ricity bill? No 11/06/2024 Transportation Answer Date Recorded Has the lack of transportati on kept you from medical appointments or from getting medications? No 11/06/2024 Unemployment Answer Date Recorded Are you currently unemployed or working on a part-time or temporary basis, and looking for work? No 11/06/2024 Digital Access Answer Date Recorded No 10/01/2024 No 10/01/2024 Reliable internet access at home? Not on file 10/01/2024 Device with a working camera? Not on file Sex and Gender Information Value Date Recorded Sex Assigned at Male 09/25/2024 2:27 PM EDT Legal Sex Male 2:25 PM EDT Gender Identity Male 09/25/2024 2:27 PM EDT Sexual Orientation Straight 09/25/2024 2: 27 PM EDT Last Filed Vital Signs Vital Sign Reading Time Taken Comments Blood Pressure 121/75 11/13/2024 4:36 PM EDT Pulse 97 11/13/2024 4:36 PM EDT Temperature 36.9 C (98.4 F) 11/13/2024 4:36 PM EDT Respiratory Rate 16 11/13/2024 4:36 PM EDT Oxygen Saturation 100% 11/13/2024 4:36 PM EDT Inhaled Oxygen Concentration - - Weight 93.2 kg (205 lb 7.5 oz) 11/13/2024 4:36 P M EDT Height 185.6 cm (6' 1.07 ) 11/12/2024 1:40 PM ED T Body Mass Index 27.06 11/12/2024 1:40 PM EDT Plan of Treatment Health Maintenance Due Date Last Done Comments CREATININE LEVEL 1981 LIPID PANEL 1981 DEPRESSION SCREENING 1993 SMOKING Hx and SMOKELESS TOBACCO SCREENING 1994 HEPATITIS C SCREENING 10/27/1999 HIV ONE-TIME SCREENING (18-6 5 YEARS) 10/27/1999 PNEUMOCOCCAL VACCINES (0-49 years) (1 of 2 - PCV) 2000 SCREENING FOR DIABETES 2016 INFLUENZA VACCINE (#1) 2025 COVID-19 VACCINE (3 - 2024-2 6 season) 2025 04/08/2021, 03/18/2021 Adult Td,Tdap Booster 11/04/2033 11/05/2023 HEPATITIS A VACCINES Aged Out No long er eligible based on patient's age to complete this topic HIB VACCINES Aged Out No longer eligi ble based on patient's age to complete this topic MENINGOCOCCAL VACCINES (ACWY) Aged Out No longer eligible based on patient's age to complete this topic MENINGOCOCCAL VACCINES (B) Aged Out N o longer eligible based on patient's age to complete this topic Medical Devices Not on file Insurance [address] [address] [facility] [address] [place] [address] [facility] [address] [place] [address] [facility] [address] [place] [address] [facility] [address] [place] [address] [facility] [address] [place] [address] [facility] H[facility] Care Teams Hydramatic Specialist Relationship Specialty Start Date End Date Abiola Diamond MD [address] [facility] [place] [address] PCP - General Internal Medicine 09/25/24 Self-Referred, Patient Referring Physician 09/25/24 Alexander Reyes MD [facility] [place] [address] [email or web address] 11/12/24 Additional Source Comments The information contained in this document represents components of the legal health record. It is not the complete legal health record.[facility]
--- OUTSIDE RECORDS SUMMARY | 2025-04-07 09:59 | XMS_ITS | Encounter Summary ---
Author Organization [facility] Address [address] [place] [address] Care Team Providers Care Retail Seasonal Specialist Name Role Phone Abiola Diamond MD Primary Care Provider [phone] Encounter Details Date Type Department Care Team (Late st Contact Info) Description 01/25/2025 Lab Requisition [facility] - Main Lab [address] [facility] [employer] [place] [address] Vincent Ortiz MD [address] [place] [address] Urinary tract infection, site not specified; Acute cystitis without hematuria Social History Tobacco Use Types Packs/Day Years Used Date Smoking Tobacco: Never Assessed Sex and Gender Information Value Date Recorded Sex Assigned at Not on file Legal Sex Male 1:51 PM EDT Gender Identity Not on file Sexual Orientation Not on file documented as of this encounter Plan of Treatment Not on file documented as of this encounter Procedures Procedure Name Priority Date/Time Associated Diagnosis Comments CULTURE URINE Routine 01/25/2025 12:00 AM EDT Urinary tract infection, site not specified Acute cystitis without hematuria documented in this encounter Results * (ABNORMAL) Culture urine (01/25/2025 12:00 AM EDT) Culture, Urine 10,000-49,000 CFU/mL Enterococcus faecalis(A) PAUL 01/27/2025 9:59 AM EDT [facility] Comment: Edited result: Previously reported as Gram Positive Cocci on 01/26/2025 at 0948 EDT. Urine Urine specimen obtained by clean catch procedure / Unknown 01/25/2025 01/25/2025 1:35 PM EDT Narrative Organism Antibiotic Method Susceptibility Enterococcus faecalis Benzylpenicillin PAUL 2 ug/ml: Susceptible Enterococcus faecalis Ampicillin PAUL <=2 ug/ml: Susceptible Enterococcus faecalis Ciprofloxacin PAUL 1 ug/ml: Susceptible Enterococcus faecalis Levofloxacin PAUL 2 ug/ml: Susceptible Enterococcus faecalis Linezolid PAUL 2 ug/ml: Susceptible Enterococcus faecalis Vancomycin PAUL 1 ug/ml: Susceptible Enterococcus faecalis Tetracycline PAUL <=1 ug/ml: Susceptible Enterococcus faecalis Nitrofurantoin PAUL <=16 ug/ml: Susceptible us Vincent Ortiz MD LAB MICROBIOLOGY - NERAL ORDERABLES Final Result [facility] LAB [address] [place] [address], documented in this encounter Visit Diagnoses Diagnosis Urinary tract infection, site not specified Acute cystitis without hematuria documented in this encounter Care Teams Retail Seasonal Specialist Relationship Specialty Start Date End Date Abiola Diamond MD [address] [facility] [address] [place] [address] PCP - General Internal Medicine 12/24/24 documented as of this encounter
--- OUTSIDE RECORDS SUMMARY | 2025-04-07 09:59 | XMS_ITS | Encounter Summary ---
Author Organization [facility] Address [address] [place] [address] Care Team Providers Care Bobbin Handler Name Role Phone Abiola Diamond MD Primary Care Provider [phone] Encounter Details Date Type Department Care Team (Late st Contact Info) Description 12/24/[address] [facility] - Main Lab [address] [facility] [place] [address] Vincent Ortiz MD [address] [place] [address] Malignant neoplasm of descended right testis (CMS/HCC V24, CMS/HCC V28) Social History Tobacco Use Types Packs/Day Years [...] EDT Malignant neoplasm of descended right testis (CMS/HCC V24, CMS/HCC V28) documented in this encounter Results * Lactate dehydrogenase (12/24/2024 10:14 AM EDT) LDH 149 120 - 246 unit/L LAB CHEMISTRY METHOD 12/24/2024 3:04 PM EDT [facility] Blood Venous blood specimen / Unknown 12/24/2024 10:14 AM EDT 12/24/2024 2:15 PM EDT us Vincent Ortiz MD LAB BLOOD ORDERABLES Final Result [facility] [address] [place] [address], documented in this encounter Visit Diagnoses Diagnosis Malignant neoplasm of descended right testis (CMS/HCC V24, CMS/HCC V28) Malignant neoplasm of other and unspecified testis documented in this encounter Care Teams Bobbin Handler Relationship Specialty Start Date End Date Abiola Diamond MD [address] [place] [address] PCP - General Internal Medicine 12/24/24 documented as of this encounter
--- OUTSIDE RECORDS SUMMARY | 2025-04-07 09:59 | XMS_ITS | Clinical Summary ---
Author Organization [address] Address [address] [place] [address] Phone Care Team Providers Care Supervisor Cigar Making Machine Name Role Phone Abiola Diamond MD Primary Care Provider [phone] Encounters Date Type Department Care Team Description 01/25/2025 Lab Requisition [facility] - Main Lab [address] [facility] [place] [address] Vincent Ortiz MD Urinary tract infection, site not specified; Acute cystitis without hematuria from Last 3 Months Social History Tobacco Use Types Packs/Day Years Used Date Smoking Tobacco: Never Assessed Sex and Gender Information Value Date Recorded Sex Assigned at Not on file Legal Sex Male 1:51 PM EDT Gender Identity Not on file Sexual Orientation Not on file Plan of Treatment Health Maintenance Due Date Last Done Comments Diabetes: Annual GFR (Glomer ular Filtration Rate) 1981 Diabetes: Annual Foot Exam 10/27/1991 Diabetes: Annual Retina Eye Exam 10/27/1991 DTaP,Tdap,and Td Vaccines (1 - Tdap) 2000 Hepatitis B Vaccines (1 of 3 - 19+ 3-dose series) 2000 Depression Screening 07/15/2024 Cholesterol Screening (Lipid Panel) 12/25/2024 HIV Screening 12/25/2024 Hepatitis C Screening 12/25/2024 Social Influencers of Health Screening 12/25/2024 COVID-19 Vaccine ( - 2023-2 5 season) 2025 Influenza Vaccine (#1) 2025 Diabetes: Annual Urine Albumin-Creatinine Ratio (uACR) 03/19/2025 Diabetes: Blood Sugar Contro l Test (HGBA1C) 03/19/2025 RSV Immunization Adult Patie nts (1 - 1-dose 75+ series) 2056 HIB Vaccines Aged Out No longer eligi [...] on patient's age to complete this topic Pneumococcal Vaccine: Pediat rics (0 to 5 Years) and At-Risk Patients (6 to 49 Years) Aged Out No longer eligible b ased [...] site not specified Acute cystitis without hematuria from Last 3 Months Results * (ABNORMAL) Culture urine (01/25/2025 12:00 AM EDT) Culture, Urine 10,000-49,000 CFU/mL Enterococcus faecalis(A) PAUL 01/27/2025 9:59 AM EDT [facility] Comment: Edited result: Previously reported as [...] us Vincent Ortiz MD LAB MICROBIOLOGY - GE NERAL ORDERABLES Final Result [facility] [address] [place] [address], [place] [phone] from Last 3 Months Insurance [address] [place] [address] [facility] Care Teams Supervisor Cigar Making Machine Relationship Specialty Start Date End Date Abiola Diamond MD [address] [facility] [place] [address] PCP - General Internal Medicine 12/24/24
== END 2025-04-07 09:43 | disposition home or self-care (01) ==
LOC: HO.HMCC 08:47
PROVIDERS: PCP Internal Medicine; Visit Provider Internal Medicine
DX: E11.9 Type 2 diabetes mellitus without complications (principal); C79.00 Secondary malignant neoplasm of unspecified kidney and renal pelvis; Z13.9 Encounter for screening, unspecified

== ENCOUNTER 2025-04-07 08:47 | Outpatient (REF) | payer OTHER, SELFPAY ==
[2025-04-07 14:00] LABS: MANUAL DIFF FLAG NO
[2025-04-07 14:05] LABS: Hematocrit 35.9 % (42.0-52.0); Hemoglobin 11.1 g/dl (14.0-18.0); Imm Gran Abs Auto 0.02 X10*3/uL (0.00-0.03); Imm Gran Pct Auto 0.4 % (0.0-0.4); Lymphocytes Absolute Auto 0.7 X10*3/uL (1.2-4.9); Mean Corpuscular HGB Conc 30.9 g/dl (31.0-36.0); Mean Corpuscular Hemoglobin 26.4 pg (27.0-33.0); Mean Corpuscular Volume 85.5 fL (80.0-98.0); NRBC Abs Auto 0.000 X10*3/uL (0.0-0.012); NRBC Pct Auto 0.0 /100WBC (0.0-0.2); Platelet Count 177 X10*3/uL (160-400); Red Blood Count 4.20 X10*6/uL (4.60-5.80); White Blood Count 4.6 X10*3/uL (4.8-10.8)
[2025-04-07 14:11] LABS: Microalbum/Creatinine Ratio Ur 7.7 ug/mg cr (<30)
[2025-04-07 14:22] LABS: Alanine Aminotransferase 21 U/L (0-40); Albumin Level 4.2 g/dL (3.5-5.0); Alkaline Phosphatase 60 U/L (39-117); Anion Gap 10 (12-20); Aspartate Amino Transferase 37 U/L (5-37); Blood Urea Nitrogen 26 mg/dL (9-16); Calcium 9.4 mg/dL (8.4-10.2); Carbon Dioxide 27 mmol/L (22-29); Chloride 108 mmol/L (96-108); Cholesterol 182 mg/dL (<200); Estimated Glomerular Filt Rate 54; HDL Cholesterol 46 mg/dL (>40); Iron 64 mcg/dL (45-160); Percent Iron Saturation 27 % (15-50); Potassium 4.8 mmol/L (3.3-5.1); Sodium 140 mmol/L (135-145); Total Iron Binding Capacity 241 mcg/dL (228-428); Total Protein 7.5 g/dL (6.5-8.0); Triglycerides 57 mg/dL (<150); Unsaturated Iron Binding 177 ug/dL
[2025-04-07 14:51] LABS: Folate 5.0 ng/mL (> or = 4.0); Vitamin B12 405 pg/mL (200-900)
== END 2025-04-07 08:48 | disposition home or self-care (01) ==
LOC: HO.HMGCLDS 08:47
PROVIDERS: PCP Internal Medicine; Visit Provider Internal Medicine
DX: E11.9 Type 2 diabetes mellitus without complications (principal); C62.11 Malignant neoplasm of descended right testis; C79.00 Secondary malignant neoplasm of unspecified kidney and renal pelvis; Z79.84 Long term (current) use of oral hypoglycemic drugs; Z91.119 Patient's noncompliance with dietary regimen due to unspecified reason
CPT/HCPCS: 36415; 80053; 80061; 82043; 82570; 82607; 82746; 83036; 83540; 85025